=== PATIENT | male | born 1950 | race Caucasian/White ===

== ENCOUNTER 2017-08-08 09:27 | Emergency (ER) | payer MEDICARE, OTHER, SELFPAY ==
[2017-08-08 09:30] VITALS: BP 109/78; PULSE 91; RESP 25; TEMP 36.6; O2SAT 87; BMI 16.9
[2017-08-08 09:36] VITALS: BP 129/78; PULSE 90; RESP 19; O2SAT 96
--- NOTE | 2017-08-08 09:55 | RAD_ITS ---
STUDY: X-RAY CHEST REASON FOR EXAM: Male, 66 years old. Dizziness. Hypotension. History of COPD. TECHNIQUE: AP and lateral views of the chest. COMPARISON: Comparison is made with prior examination dated April 17, 2014. FINDINGS: EKG electrodes are seen. Increased linear markings in the right middle lobe suggestive of scarring. There is no demonstrated pleural abnormality. Normal size heart. Normal mediastinum and musa. Normal visualized pulmonary arteries. There is atherosclerotic tortuosity of the aortic arch and descending thoracic aorta. There is demineralization of the osseous structures. Normal visualized ribs, clavicles, and shoulders. There is no demonstrated abnormality of the visualized soft tissue structures of the upper abdomen. RAD/Chest PA and Lateral IMPRESSION: Findings suggestive of linear scarring in the right middle lobe. No acute abnormality is seen. Electronically Signed: Thom Smyth MD at 11:04 EDT Tel [phone], Service support ,
[2017-08-08 10:07] VITALS: BP 114/84; BP 128/88; PULSE 82; PULSE 88
--- NOTE | 2017-08-08 10:07 | ED.VISSUMM ---
- ER Visit Summary Date of Service: 08/08/17 Chief Complaint: Sent to ER because of low blood count and blood pressure. History of Present Illness: The patient is a 66 M who was hospitalized approximately 2 weeks ago secondary to esophageal tear that was complicated by cardiac pulmonary arrest and aspiration. He had surgical repair of his esophageal tear. Patient nor are certain what type of tear and if he had a Boerhaave's syndrome. Patient states he was upright when his pressure was assessed at the [facility] and document is low. After reviewing [facility] notes it was determined that his last hemoglobin was 7.7. He denies fever, chills night sweats. He denies any ocular, visual auditory symptoms. He does have a cough which is productive of yellow tinged sputum and reports dyspnea and wheezing. He is intermittently on oxygen. He has been on oxygen adamantly since surgery. He denies any chest pain or abdominal pain. He denies hematemesis, melena hematochezia. He states his last bowel movement was yesterday. There was no change in size, color or consistency. He denies any dysuria, frequency, urgency or hematuria. He denies any leg pain, swelling or discoloration. He denies headache, anesthesia or motor weakness. He does report generalized weakness. Please read written note for complete detail Physical Examination: Vital signs are unremarkable. Pulse ox 96% on 2 L by nasal cannula. Patient is a very thin gentleman. HEENT exam is remarkable for pale conjunctivae otherwise normal. Heart is regular without murmur, gallop or rub. Lungs reveal increased x-ray phase rhonchi and wheezing throughout. Abdomen is soft flat with well healing midline incision without evidence infection. There is slight tympany to percussion. There is no CVA tenderness noted. There is no asymmetry, swelling, discoloration, leg vein distention, palpable cords or tenderness along the distribution of the deep venous system. Affect is depressed. Neuro exam is nonfocal. Test Results: Two-view chest x-ray reveals fluid in the right fissure. The cardiac silhouette is normal. There is no abnormality of the mediastinum. There is evidence of chronic pulmonary changes. There is no infiltrate, effusion or any other N O'Baldo noted. White count is 9.2 thousand with 76 segs. H&H 7.9 and 25.9. Platelet count is 448,000. Electrode panel reveals slight elevation in glucose and BUN of 108 and 23. Orthostatic vital signs were negative. Emergency Department Course and Treatment: Clinically patient is anemic with pale conjunctivae and pale appearing skin. There is still erythema in the creases of his pulse. We will obtain a CBC to assess his H&H. Chest x-ray was obtained to evaluate his purulent productive cough and bilateral rhonchi as well as appropriate blood work. Orthostatic vital signs were obtained because patient reports he was upright when the nurse at the nursing facility documented low blood pressure. Treatment Plan: Reassessed and his breathing has improved markedly. He states he does have inhalers at the [facility]. He was informed that I would indicate he should use them more frequently over the next several days. Disposition: Return to [facility] in stable and improved condition Impression: 1. Bronchospasm secondary to COPD 2. Anemia status post surgery 3. Deconditioning 4. History of hypertension 5. Reported hypotension This note was generated with [employer] dictation software. It may contain incorrect words, spelling, and punctuation that were not noted in review of the chart prior to signing ED Disposition - Plan for ED Patient: Disposition: Home or Assisted Living Chief Complaint: Hypotension Instructions: ED COPD Flare Referrals: Marck Lee MD [Primary Care Provider] - 3-5 Days if not improving Additional Instructions: Allow Mr. Baker to use his metered-dose inhaler every 1-2 hours for the next 2 days then every 2-4 hours as needed.
[2017-08-08] MEDS: Ipratropium/Albuterol Sulfate 3 ML AMPUL.NEB INHALATION (10:10)
[2017-08-08] MEDS: Albuterol 2.5 MG/3 ML VIAL.NEB. INHALATION (10:10)
[2017-08-08 10:11] VITALS: PULSE 98; RESP 19
--- NOTE | 2017-08-08 10:12 | ED.DCSUM_ITS ---
- ER Visit Summary Date of Service: 08/08/17 Chief Complaint: Sent to ER because of low blood count and blood pressure. History of Present Illness: The patient is a 66 M who was hospitalized approximately 2 weeks ago secondary to esophageal tear that was complicated by cardiac pulmonary arrest and aspiration. He had surgical repair of his esophageal tear. Patient nor are certain what type of tear and if he had a Boerhaave's syndrome. Patient states he was upright when his pressure was assessed at the [facility] and document is low. After reviewing [facility] notes it was determined that his last hemoglobin was 7.7. He denies fever, chills night sweats. He denies any ocular, visual auditory symptoms. He does have a cough which is productive of yellow tinged sputum and reports dyspnea and wheezing. He is intermittently on oxygen. He has been on oxygen adamantly since surgery. He denies any chest pain or abdominal pain. He denies hematemesis, melena hematochezia. He states his last bowel movement was yesterday. There was no change in size, color or consistency. He denies any dysuria, frequency, urgency or hematuria. He denies any leg pain, swelling or discoloration. He denies headache, anesthesia or motor weakness. He does report generalized weakness. Please read written note for complete detail Physical Examination: Vital signs are unremarkable. Pulse ox 96% on 2 L by nasal cannula. Patient is a very thin gentleman. HEENT exam is remarkable for pale conjunctivae otherwise normal. Heart is regular without murmur, gallop or rub. Lungs reveal increased x-ray phase rhonchi and wheezing throughout. Abdomen is soft flat with well healing midline incision without evidence infection. There is slight tympany to percussion. There is no CVA tenderness noted. There is no asymmetry, swelling, discoloration, leg vein distention, palpable cords or tenderness along the distribution of the deep venous system. Affect is depressed. Neuro exam is nonfocal. Test Results: Two-view chest x-ray reveals fluid in the right fissure. The cardiac silhouette is normal. There is no abnormality of the mediastinum. There is evidence of chronic pulmonary changes. There is no infiltrate, effusion or any other N O'Baldo noted. White count is 9.2 thousand with 76 segs. H&H 7.9 and 25.9. Platelet count is 448,000. Electrode panel reveals slight elevation in glucose and BUN of 108 and 23. Orthostatic vital signs were negative. Emergency Department Course and Treatment: Clinically patient is anemic with pale conjunctivae and pale appearing skin. There is still erythema in the creases of his pulse. We will obtain a CBC to assess his H&H. Chest x-ray was obtained to evaluate his purulent productive cough and bilateral rhonchi as well as appropriate blood work. Orthostatic vital signs were obtained because patient reports he was upright when the nurse at the nursing facility documented low blood pressure. Treatment Plan: Reassessed and his breathing has improved markedly. He states he does have inhalers at the retirement. He was informed that I would indicate he should use them more frequently over the next several days. Disposition: Return to retirement in stable and improved condition Impression: 1. Bronchospasm secondary to COPD 2. Anemia status post surgery 3. Deconditioning 4. History of hypertension 5. Reported hypotension This note was generated with [employer] dictation software. It may contain incorrect words, spelling, and punctuation that were not noted in review of the chart prior to signing ED Disposition - Plan for ED Patient: Disposition: Home or Assisted Living Chief Complaint: Hypotension Instructions: ED COPD Flare Referrals: Marck Lee MD [Primary Care Provider] - 3-5 Days if not improving Additional Instructions: Allow Mr. Baker to use his metered-dose inhaler every 1-2 hours for the next 2 days then every 2-4 hours as needed.
[2017-08-08 11:18] LABS: Absolute Lymphocyte Count 1.38 X10^3/ul (0.83-4.51); Absolute Neutrophil Count 7.2 X10^3/uL (2.0-7.7); Basophil# 0.03 X10^3/uL; Basophil% 0.3 % (0-1); Eosinophil# 0.06 X10^3/uL; Eosinophils% 0.6 % (0-5); Hematocrit 25.9 % (40-54); Hemoglobin 7.9 g/dl (13.0-16.5); Lymphocyte # 1.38 X10^3/ul (4.0); Lymphocyte % 14.6 % (19-41); Mean Corp Hgb Conc 30.5 g/gl (32-36); Mean Corpuscular Hgb 31.6 pg (27.0-32.0); Mean Corpuscular Volume 103.6 fL (80-94); Mean Platelet Vol. 9.1 fl (6.2-12.0); Monocyte# 0.76 X10^3/uL; Neutrophil # 7.21 X10^3/uL (2.7-7.7); Neutrophil % 76.2 % (47-70); POSITIVE COUNT NO; POSITIVE DIFFERENTIAL NO; POSITIVE MORPHOLOGY NO; Platelet Count 448 K/mm3 (150-450); RBC Distribution Width CV 12.5 % (11.6-14.6); RBC Distribution Width SD 46.4 fl (35.1-43.9); White Blood Count 9.5 K/mm3 (4.4-11.0)
[2017-08-08 11:26] LABS: Anion Gap 4 (5-15); BUN 23 mg/dL (7-18); BUN/Creat Ratio 26.6 RATIO (10-20); Calcium,Total 9.2 mg/dL (8.5-10.1); Chloride 103 mmol/L (98-107); Creatinine, Serum 0.87 mg/dL (0.70-1.30); EST Glomerular Filtration Rate 94 mL/min (>60); Est Glom Filt Rate - Afr Amer 114 mL/min (>60); Estimated Creatinine Clearance 69.52 ml/min; Glucose 108 mg/dL (74-106); Potassium 4.6 mmol/L (3.5-5.1); Sodium Level 139 mmol/L (136-145)
[2017-08-08 11:28] VITALS: BP 135/88; PULSE 86; RESP 14; O2SAT 99
--- NOTE | 2017-08-08 12:03 | ED.RN ---
ATTEMPTED TO CALL [facility], TO LET THEM KNOW THAT HE WILL BE COMING BACK.
--- NOTE | 2017-08-08 12:05 | ED.RN ---
CALLED ANGEL, SHE IS AWARE THAT PT IS RETURNING TO [facility].
[2017-08-08 12:07] VITALS: BP 152/99; PULSE 100; RESP 18; O2SAT 96
--- NOTE | 2017-08-08 12:07 | ED.RN ---
CALLED [facility] GAVE REPORT TO MELLISSA NURSE.
== END 2017-08-08 12:52 | disposition home or self-care (01) ==
PROVIDERS: Emergency Provider Emergency Medicine; Family Provider Family Medicine; PCP Family Medicine
DX: J98.01 Acute bronchospasm (principal); J44.9 Chronic obstructive pulmonary disease, unspecified; D64.9 Anemia, unspecified; I10 Essential (primary) hypertension; E78.00 Pure hypercholesterolemia, unspecified; F32.9 Major depressive disorder, single episode, unspecified; Z98.890 Other specified postprocedural states; Z87.891 Personal history of nicotine dependence; Z79.51 Long term (current) use of inhaled steroids; Z79.82 Long term (current) use of aspirin; Z79.899 Other long term (current) drug therapy
CPT/HCPCS: 71046; 80048; 85025; 94640; 99285; A4216

== ENCOUNTER → 2017-10-03 12:53 | Outpatient (CLI) | payer MEDICARE, OTHER, SELFPAY ==
--- NOTE | 2017-10-03 12:56 | RAD_ITS ---
STUDY: SWALLOWING STUDY REASON FOR EXAM: Male, 66 years old. Dysphagia. TECHNIQUE: The examination was performed with Speech Pathology in attendance. Under fluoroscopic observation, the patient ingested thin barium, thick barium, barium pudding, and barium coated cracker. FLUOROSCOPY TIME: 5:06 minutes/seconds. 4325 images were obtained. RADIOLOGIST INVOLVEMENT: Radiologist was present and providing direct supervision. COMPARISON: None. FINDINGS: The following was observed during swallowing of the various mixtures of barium: Thin Barium: Side aspiration with ingestion of thin liquids. Thick Barium: There was no evidence of aspiration or laryngeal penetration. Barium Pudding: There was no evidence of aspiration or laryngeal penetration. Moderate amount of residual in the vallecula and piriform sinuses. Barium Coated Cracker: There was no evidence of aspiration or laryngeal penetration. RAD/Swallowing Function w/Video IMPRESSION: Sound aspiration with ingestion of thin liquids. Moderate degree of residual in the vallecula and piriform sinuses. The swallow study findings were discussed with the patient by the speech pathologist at the conclusion of the examination. Please see speech pathology report for more information and recommendations. Electronically Signed: Thom Smyth MD at 14:19 EDT Tel [phone], Service support ,
--- NOTE | 2017-10-03 13:00 | SP.MBSS_ITS ---
PRIMARY / SECONDARY DIAGNOSIS: dysphagia (R13.10) REFERRING PHYSICIAN: Dr. Chaka Judd MD; Dr. Cong Herron MD CURRENT DIET: regular textures, thin liquids DENTITION: WFL MENTAL STATUS: WNL RESPIRATORY STATUS: O2 via room air PREVIOUS MODIFIED BARIUM SWALLOW STUDY: unclear Patient reports prior workup via FEES, possibly via MBS during [facility] admission, reports recent FEES revealed what appears to be pharyngeal dysmotility w/ post prandial penetration and aspiration based on description. REASON FOR REFERRAL: Patient is a 66 year old male referred for a modified barium swallow (MBS) study to objectively assess the Patients oropharyngeal swallow function under fluoroscopy secondary to persistent severe dysphagia requiring percutaneous endoscopic gastrostomy (PEG) tube placement. Patient reports recent admission to [facility] ([facility]) lasting two weeks following choking incident (cheeseburger) prior to admission, with a separate incident reported during [facility] admission (lodging of pills), with workup revealing an esophageal perforation; admission complicated by cardiac pulmonary arrest and aspiration requiring intubation; PEG tube placed during [facility] admission. Patient later transferred to [facility], underwent a fiberoptic endoscopic evaluation of swallowing (FEES). Patient advanced to a regular textured, thin liquid diet with recommendations for execution of the chin tuck posture in addition to right head turn during PO intake. Patient reports continued coughing during PO intake of all textures. All reports not available at time of assessment. Esophagram scheduled for 10/07/2017. 08/08/2017 CXR revealed findings suggestive of linear scarring in the right middle lobe; no acute abnormality is seen. MEDICAL HISTORY: Myelodysplasia status post full body radiation (2002), chronic obstructive pulmonary disease, alcohol abuse, anxiety and depression, hyperlipidemia, hypertension STUDY FINDINGS: Patient participated in a Modified Barium Swallow (MBS) study on 10/03/2017. Dr. Smyth was the radiologist present for this evaluation. This study was recorded in the lateral view and images were sent to PACs for storage. The following consistencies were presented to this patient for analysis of oropharyngeal swallow function: thin liquids, nectar thickened liquids, pudding , and a regular textured, Millie Doone cookie. Results of the MBS are as follows: PENETRATION / ASPIRATION SCALE (GLEZ): 1 = does not enter airway 2 = enters airway/above vocal folds/ejected 3 = enters airway/above vocal folds/not ejected 4 = enters airway/contacts vocal folds/ejected 5 = enters airway/contacts vocal folds/not ejected 6 = enters airway/below vocal folds/ejected 7 = enters airway/below vocal folds/not ejected despite effort 8 = enters airway/below vocal folds/no effort VIDEOFLOROSCOPIC SCALE SCORE (GLEZ): Grade I = aspiration of material that has penetrated into the laryngeal vestibule, intact cough reflex Grade II = aspiration < 10 % of the bolus, intact cough reflex Grade III = aspiration of < 10 % of the bolus, reduced cough reflex or aspiration of > 10 % of the bolus, intact cough reflex Grade IV = aspiration of > 10 % of the bolus, reduced cough reflex PENETRATION / ASPIRATION SCALE (SCORE) WITH VIDEOFLOROSCOPIC SCALE SCORE: Thin liquids via cup (single sip): 7 - Grade II Thin liquids via cup (chin tuck): 1 Thin liquids via cup (chin tuck): 5 Thin liquids via cup (head turn right): 3 Thin liquids via cup (effort swallow): 7 - Grade II Thin liquids via cup (reduced bolus volume): 1 Thin liquids via cup (reduced bolus volume): 1 Thin liquids via cup (single sip): 1 Thin liquids via cup (single sip): 1 [place] thickened liquids via cup (single sip): 1 [place] thickened liquids via cup (single sip): 1 [place] thickened liquids via cup (single sip): 1 Pudding via spoon: 1 Pudding via spoon (right head turn): 1 Regular textured cookie: 1 Pudding via spoon (A/P): 1 Pudding via spoon (A/P right and left head turn): 1 Thin liquids via cup (reduced bolus volume): 1 IMPRESSION: DIAGNOSIS: moderate to severe pharyngeal dysphagia (R13.13) ORAL PHASE CHARACTERIZED BY: LABIAL SEAL: no labial escape TONGUE CONTROL DURING BOLUS MANIPULATION: cohesive bolus between tongue to palatal seal BOLUS PREPARATION / MASTICATION: slow prolonged chewing/mashing with complete recollection BOLUS TRANSPORT / LINGUAL MOTION: brisk tongue motion ORAL RESIDUE: residue collection on oral structures PHARYNGEAL PHASE CHARACTERIZED BY: INITIATION OF PHARYNGEAL SWALLOW: bolus head in valleculae at first hyoid excursion SOFT PALATE ELEVATION: no bolus between soft palate and pharyngeal wall LARYNGEAL ELEVATION: complete superior movement of thyroid cartilage with complete approximation of arytenoids cartilage to epiglottic petiole ANTERIOR HYOID EXCURSION: no anterior movement EPIGLOTTIC MOVEMENT: partial epiglottic inversion LARYNGEAL VESTIBULE CLOSURE AT HEIGHT OF SWALLOW: incomplete laryngeal vestibule closure with narrow column of air/contrast in laryngeal vestibule PHARYNGEAL STRIPPING WAVE: pharyngeal stripping wave absent PHARYNGEAL CONTRACTION (A/P VIEW ONLY): bilateral bulging PHARYNGOESOPHAGEAL SEGMENT OPENING: minimal distension and minimal duration with marked obstruction of flow TONGUE BASE RETRACTION: narrow column of contrast between tongue base and posterior pharyngeal wall PHARYNGEAL RESIDUE: majority of contrast within or on pharyngeal structures ( valleculae, pyriform sinus); collection of residue within or on pharyngeal structures (pharyngoesophageal segment) ESOPHAGEAL PHASE CHARACTERIZED BY: ESOPHAGEAL BOLUS CLEARANCE IN THE UPRIGHT POSITION: inconsistent esophageal retention EFFECTS OF TREATMENT STRATEGIES ATTEMPTED: Chin tuck posture = ineffective Left head turn = ineffective Right head turn = ineffective Cough and reswallow = ineffective Effort swallow = ineffective Double / multiple swallows = ineffective Liquid chaser = minimally effective / ineffective Reduced bolus size = = minimally effective Cued expectoration = effective DIET TEXTURE RECOMMENDATIONS: Will recommend a pureed textured, nectar thickened liquid diet. COMPENSATORY STRATEGIES RECOMMENDED: Reduced bolus volume, reduced rate of intake, liquid chaser, multiple swallows , seated upright at 90 degrees during PO intake, remain upright for 30-60 minutes post meal (dysmotility precaution), medications crushed with applesauce , INTERPRETATION OF RESULTS: Patient presents with moderate to severe pharyngeal dysphagia (R13.13) marked by significant pharyngeal dysmotility and reduced laryngeal vestibule closure resulting in prandial and post prandial penetration in addition to overt aspiration of thin liquids. Reduced closure of the airway during deglutition attributed to reduced hyolaryngeal excursion resulting in insufficient epiglottic inversion poor laryngeal vestibule closure / pressure / timing resulting in prandial penetration and minimal aspiration of thin liquids. 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 No improvement noted with execution of the chin tuck posture, multiple swallows, cough and reswallow, no significant improvement in pharyngeal clearance with head turn to either side. Sufficient cough response to expel penetrated material / laryngotracheal aspiration. RECOMMENDATIONS: Would consider this Patient to be at higher risk for both malnutrition and dehydration (due to extent of pharyngeal dysmotility and recommended diet texture restrictions), would caution removal of PEG tube. Patient requires intensive skilled speech-language intervention targeting continued diet texture management; training and implementation of recommended compensatory strategies; training and implementation of recommended oropharyngeal strengthening exercises to facilitate improved laryngeal vestibule closure / pressure, pharyngeal motility and pharyngoesophageal segment relaxation; neuromuscular electrical stimulation (NMES) / VitalStim; and Patient training targeting meal preparation / thickened liquid preparation. ADDITIONAL COMMENTS/RECOMMENDATIONS: Results and recommendations were discussed with the Patient immediately following MBS completion, with the Patient verbalizing understanding and agreement with all recommendations and education provided. Received message from the Patients daughter to contact post completion, though was unable to establish contact despite multiple attempts. Email sent with contact information provided. G-CODES: SWALLOWING [id number] Current Status: CK SWALLOWING [id number] Goal Status: CI SWALLOWING [id number] Discharge Status: CK
== END ==
PROVIDERS: Family Provider Family Medicine; PCP Family Medicine; Visit Provider Family Medicine
DX: K22.3 Perforation of esophagus (principal); R13.12 Dysphagia, oropharyngeal phase
CPT/HCPCS: 74230; 92611; G8996; G8997; G8998

== ENCOUNTER → 2017-10-07 08:22 | Outpatient (CLI) | payer MEDICARE, OTHER, SELFPAY ==
--- NOTE | 2017-10-07 08:30 | RAD_ITS ---
STUDY: X-RAY - ESOPHAGUS (BARIUM SWALLOW) WITH FLUOROSCOPY REASON FOR EXAM: Male, 66 years old. Dysphagia. History of prior esophageal perforation. TECHNIQUE: 16 view(s) of the esophagus were obtained following swallowing of barium. FLUOROSCOPY TIME (if supplied): (0:42) minutes/seconds COMPARISON: None. FINDINGS: There was aspiration of barium during the examination. There is no demonstrated esophageal foreign body. There is no demonstrated stricture or mucosal abnormality. There is a small hiatal hernia of the fundus of the stomach. No evidence of gastroesophageal reflux. There is atherosclerotic tortuosity of the aortic arch and descending thoracic aorta. Normal visualized pulmonary parenchyma. Normal visualized osseous structures of the thorax. RAD/Esophagus Only IMPRESSION: Small sliding hiatal hernia. No evidence of gastroesophageal reflux. Aspiration of barium. Electronically Signed: Thom Smyth MD at 9:49 EDT Tel [phone], Service support ,
== END ==
PROVIDERS: Family Provider Family Medicine; PCP Family Medicine; Visit Provider Family Medicine
DX: R13.12 Dysphagia, oropharyngeal phase (principal); K22.3 Perforation of esophagus
CPT/HCPCS: 74220; 92610

== ENCOUNTER 2017-11-19 14:30 | Outpatient (RCR) | payer MEDICARE, OTHER, SELFPAY ==
--- NOTE | 2017-10-08 14:50 | ST ---
PRIMARY / SECONDARY DIAGNOSIS: dysphagia (R13.10) REFERRING PHYSICIAN: Dr. Chaka Judd MD; Dr. Cong Herron MD CURRENT DIET: regular textures, thin liquids DENTITION: WFL MENTAL STATUS: WNL RESPIRATORY STATUS: O2 via room air PREVIOUS MODIFIED BARIUM SWALLOW STUDY: unclear Patient reports prior workup via FEES, possibly via MBS during [facility] admission, reports recent FEES revealed what appears to be pharyngeal dysmotility w/ post prandial penetration and aspiration based on description. REASON FOR REFERRAL: Patient is a 66 year old male referred for a modified barium swallow (MBS) study to objectively assess the Patients oropharyngeal swallow function under fluoroscopy secondary to persistent severe dysphagia requiring percutaneous endoscopic gastrostomy (PEG) tube placement. Patient reports recent admission to [facility] ([facility]) lasting two weeks following choking incident (cheeseburger) prior to admission, with a separate incident reported during [facility] admission (lodging of pills), with workup revealing an esophageal perforation; admission complicated by cardiac pulmonary arrest and aspiration requiring intubation; PEG tube placed during [facility] admission. Patient later transferred to [facility], underwent a fiberoptic endoscopic evaluation of swallowing (FEES). Patient advanced to a regular textured, thin liquid diet with recommendations for execution of the chin tuck posture in addition to right head turn during PO intake. Patient reports continued coughing during PO intake of all textures. All reports not available at time of assessment. Esophagram scheduled for 10/07/2017. 08/08/2017 CXR revealed findings suggestive of linear scarring in the right middle lobe; no acute abnormality is seen. MEDICAL HISTORY: Myelodysplasia status post full body radiation (2002), chronic obstructive pulmonary disease, alcohol abuse, anxiety and depression, hyperlipidemia, hypertension STUDY FINDINGS: Patient participated in a Modified Barium Swallow (MBS) study on 10/03/2017. Dr. Smyth was the radiologist present for this evaluation. This study was recorded in the lateral view and images were sent to PACs for storage. The following consistencies were presented to this patient for analysis of oropharyngeal swallow function: thin liquids, nectar thickened liquids, pudding, and a regular textured, Millie Doone cookie. Results of the MBS are as follows: PENETRATION / ASPIRATION SCALE (GLEZ): 1 = does not enter airway 2 = enters airway/above vocal folds/ejected 3 = enters airway/above vocal folds/not ejected 4 = enters airway/contacts vocal folds/ejected 5 = enters airway/contacts vocal folds/not ejected 6 = enters airway/below vocal folds/ejected 7 = enters airway/below vocal folds/not ejected despite effort 8 = enters airway/below vocal folds/no effort VIDEOFLOROSCOPIC SCALE SCORE (GLEZ): Grade I = aspiration of material that has penetrated into the laryngeal vestibule, intact cough reflex Grade II = aspiration < 10 % of the bolus, intact cough reflex Grade III = aspiration of < 10 % of the bolus, reduced cough reflex or aspiration of > 10 % of the bolus, intact cough reflex Grade IV = aspiration of > 10 % of the bolus, reduced cough reflex PENETRATION / ASPIRATION SCALE (SCORE) WITH VIDEOFLOROSCOPIC SCALE SCORE: Thin liquids via cup (single sip): 7 - Grade II Thin liquids via cup (chin tuck): 1 Thin liquids via cup (chin tuck): 5 Thin liquids via cup (head turn right): 3 Thin liquids via cup (effort swallow): 7 - Grade II Thin liquids via cup (reduced bolus volume): 1 Thin liquids via cup (reduced bolus volume): 1 Thin liquids via cup (single sip): 1 Thin liquids via cup (single sip): 1 [place] thickened liquids via cup (single sip): 1 [place] thickened liquids via cup (single sip): 1 [place] thickened liquids via cup (single sip): 1 Pudding via spoon: 1 Pudding via spoon (right head turn): 1 Regular textured cookie: 1 Pudding via spoon (A/P): 1 Pudding via spoon (A/P right and left head turn): 1 Thin liquids via cup (reduced bolus volume): 1 IMPRESSION: DIAGNOSIS: moderate to severe pharyngeal dysphagia (R13.13) ORAL PHASE CHARACTERIZED BY: LABIAL SEAL: no labial escape TONGUE CONTROL DURING BOLUS MANIPULATION: cohesive bolus between tongue to palatal seal BOLUS PREPARATION / MASTICATION: slow prolonged chewing/mashing with complete recollection BOLUS TRANSPORT / LINGUAL MOTION: brisk tongue motion ORAL RESIDUE: residue collection on oral structures PHARYNGEAL PHASE CHARACTERIZED BY: INITIATION OF PHARYNGEAL SWALLOW: bolus head in valleculae at first hyoid excursion SOFT PALATE ELEVATION: no bolus between soft palate and pharyngeal wall LARYNGEAL ELEVATION: complete superior movement of thyroid cartilage with complete approximation of arytenoids cartilage to epiglottic petiole ANTERIOR HYOID EXCURSION: no anterior movement EPIGLOTTIC MOVEMENT: partial epiglottic inversion LARYNGEAL VESTIBULE CLOSURE AT HEIGHT OF SWALLOW: incomplete laryngeal vestibule closure with narrow column of air/contrast in laryngeal vestibule PHARYNGEAL STRIPPING WAVE: pharyngeal stripping wave absent PHARYNGEAL CONTRACTION (A/P VIEW ONLY): bilateral bulging PHARYNGOESOPHAGEAL SEGMENT OPENING: minimal distension and minimal duration with marked obstruction of flow TONGUE BASE RETRACTION: narrow column of contrast between tongue base and posterior pharyngeal wall PHARYNGEAL RESIDUE: majority of contrast within or on pharyngeal structures (valleculae, pyriform sinus); collection of residue within or on pharyngeal structures (pharyngoesophageal segment) ESOPHAGEAL PHASE CHARACTERIZED BY: ESOPHAGEAL BOLUS CLEARANCE IN THE UPRIGHT POSITION: inconsistent esophageal retention EFFECTS OF TREATMENT STRATEGIES ATTEMPTED: Chin tuck posture = ineffective Left head turn = ineffective Right head turn = ineffective Cough and reswallow = ineffective Effort swallow = ineffective Double / multiple swallows = ineffective Liquid chaser = minimally effective / ineffective Reduced bolus size = = minimally effective Cued expectoration = effective DIET TEXTURE RECOMMENDATIONS: Will recommend a pureed textured, nectar thickened liquid diet. COMPENSATORY STRATEGIES RECOMMENDED: Reduced bolus volume, reduced rate of intake, liquid chaser, multiple swallows, seated upright at 90 degrees during PO intake, remain upright for 30-60 minutes post meal (dysmotility precaution), medications crushed with applesauce, INTERPRETATION OF RESULTS: Patient presents with moderate to severe pharyngeal dysphagia (R13.13) marked by significant pharyngeal dysmotility and reduced laryngeal vestibule closure resulting in prandial and post prandial penetration in addition to overt aspiration of thin liquids. Reduced closure of the airway during deglutition attributed to reduced hyolaryngeal excursion resulting in insufficient epiglottic inversion poor laryngeal vestibule closure / pressure / timing resulting in prandial penetration and minimal aspiration of thin liquids. 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 No improvement noted with execution of the chin tuck posture, multiple swallows, cough and reswallow, no significant improvement in pharyngeal clearance with head turn to either side. Sufficient cough response to expel penetrated material / laryngotracheal aspiration. RECOMMENDATIONS: Would consider this Patient to be at higher risk for both malnutrition and dehydration (due to extent of pharyngeal dysmotility and recommended diet texture restrictions), would caution removal of PEG tube. Patient requires intensive skilled speech-language intervention targeting continued diet texture management; training and implementation of recommended compensatory strategies; training and implementation of recommended oropharyngeal strengthening exercises to facilitate improved laryngeal vestibule closure / pressure, pharyngeal motility and pharyngoesophageal segment relaxation; neuromuscular electrical stimulation (NMES) / VitalStim; and Patient training targeting meal preparation / thickened liquid preparation. ADDITIONAL COMMENTS/RECOMMENDATIONS: Results and recommendations were discussed with the Patient immediately following MBS completion, with the Patient verbalizing understanding and agreement with all recommendations and education provided. Received message from the Patients daughter to contact post completion, though was unable to establish contact despite multiple attempts. Email sent with contact information provided. G-CODES: SWALLOWING [id number] Current Status: CK SWALLOWING G8997 Goal Status: CI SWALLOWING [id number] Discharge Status: CK 10/03/17 1609 <Electronically signed by Reza Maldonado M.A., CFY-AUTO CLEANER> Date Reza Maldonado M.A., CFY-AUTO CLEANER
--- NOTE | 2017-10-08 15:06 | HP.SP.AD_ITS ---
History - History Date of Eval: 10/07/17 Medical Diagnosis (from RX): Dysphagia Date of Onset of Diagnosis: 2002 Previous speech therapy: Yes Results: [facility]: Other Relevant Medical History/Diagnoses/Surgery: Patient reports recent admission to [facility] ([facility]) lasting two weeks following choking incident (cheeseburger) prior to admission, with a separate incident reported during [facility] admission (lodging of pills), with workup revealing an esophageal perforation; admission complicated by cardiac pulmonary arrest and aspiration requiring intubation; PEG tube placed during [facility] admission. Patient later transferred to [facility], underwent a fiberoptic endoscopic evaluation of swallowing (FEES). Patient advanced to a regular textured, thin liquid diet with recommendations for execution of the chin tuck posture in addition to right head turn during PO intake. Patient reports continued coughing during PO intake of all textures. 08/08/2017 CXR revealed findings suggestive of linear scarring in the right middle lobe. Myelodysplasia status post full body radiation (2002), chronic obstructive pulmonary disease, alcohol abuse, anxiety and depression, hyperlipidemia, hypertension. 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 Noted swallowing deficits started at that time. History of alcohol abuse. Smoking Status: Former smoker Hx Smoking: Yes Hx Tobacco Use: No Hx Smoking Exposure: No - Pain Is pain an issue with your current prescribed condition?: No - Personal Right Hearing Abillity: Normal Left Hearing Abillity: Normal Patient Allergies - Allergies Allergies PANTANODINE Allergy (Uncoded 08/08/17 09:29) Unknown Subjective Dysphagia - Symptoms Reported Symptoms/Problems with: Difficulty Swallowing Liquids, Weight Loss, Hx of Aspiration, Hx of Pneumonia - Current Diet Solids Current Diet: Regular Other: Recommended pureed from MBS on 10/03/17 - Current Diet Liquids Current Liquids: [place] Thick [place] free water Protocol: Yes - NPO NPO - Alternative Nutrition Method: Gastrostomy Tube Objective Dysphagia - Results Swallowing Within Normal Limits: No Swallowing Diagnosis: Pharyngeal Phase Dysphagia Severity: Moderate Modified Barium Results Hx MBS Report Entered: Yes MBS Results (from prior exam): 10/08/17 14:50 Speech Therapy by John Bergman PRIMARY / SECONDARY DIAGNOSIS: dysphagia (R13.10) REFERRING PHYSICIAN: Dr. Chaka Judd MD; Dr. Cong Herron MD CURRENT DIET: regular textures, thin liquids DENTITION: WFL MENTAL STATUS: WNL RESPIRATORY STATUS: O2 via room air PREVIOUS MODIFIED BARIUM SWALLOW STUDY: unclear Patient reports prior workup via FEES, possibly via MBS during [facility] admission, reports recent FEES revealed what appears to be pharyngeal dysmotility w/ post prandial penetration and aspiration based on description. REASON FOR REFERRAL: Patient is a 66 year old male referred for a modified barium swallow (MBS) study to objectively assess the Patients oropharyngeal swallow function under fluoroscopy secondary to persistent severe dysphagia requiring percutaneous endoscopic gastrostomy (PEG) tube placement. Patient reports recent admission to [facility] ([facility]) lasting two weeks following choking incident (cheeseburger) prior to admission, with a separate incident reported during [facility] admission (lodging of pills), with workup revealing an esophageal perforation; admission complicated by cardiac pulmonary arrest and aspiration requiring intubation; PEG tube placed during [facility] admission. Patient later transferred to [facility], underwent a fiberoptic endoscopic evaluation of swallowing (FEES). Patient advanced to a regular textured, thin liquid diet with recommendations for execution of the chin tuck posture in addition to right head turn during PO intake. Patient reports continued coughing during PO intake of all textures. All reports not available at time of assessment. Esophagram scheduled for 10/07/2017. 08/08/2017 CXR revealed findings suggestive of linear scarring in the right middle lobe; no acute abnormality is seen. MEDICAL HISTORY: Myelodysplasia status post full body radiation (2002), chronic obstructive pulmonary disease, alcohol abuse, anxiety and depression, hyperlipidemia, hypertension STUDY FINDINGS: Patient participated in a Modified Barium Swallow (MBS) study on 10/03/2017. Dr. Smyth was the radiologist present for this evaluation. This study was recorded in the lateral view and images were sent to PACs for storage. The following consistencies were presented to this patient for analysis of oropharyngeal swallow function: thin liquids, nectar thickened liquids, pudding , and a regular textured, Millie Doone cookie. Results of the MBS are as follows: PENETRATION / ASPIRATION SCALE (GLEZ): 1 = does not enter airway 2 = enters airway/above vocal folds/ejected 3 = enters airway/above vocal folds/not ejected 4 = enters airway/contacts vocal folds/ejected 5 = enters airway/contacts vocal folds/not ejected 6 = enters airway/below vocal folds/ejected 7 = enters airway/below vocal folds/not ejected despite effort 8 = enters airway/below vocal folds/no effort VIDEOFLOROSCOPIC SCALE SCORE (GLEZ): Grade I = aspiration of material that has penetrated into the laryngeal vestibule, intact cough reflex Grade II = aspiration < 10 % of the bolus, intact cough reflex Grade III = aspiration of < 10 % of the bolus, reduced cough reflex or aspiration of > 10 % of the bolus, intact cough reflex Grade IV = aspiration of > 10 % of the bolus, reduced cough reflex PENETRATION / ASPIRATION SCALE (SCORE) WITH VIDEOFLOROSCOPIC SCALE SCORE: Thin liquids via cup (single sip): 7 - Grade II Thin liquids via cup (chin tuck): 1 Thin liquids via cup (chin tuck): 5 Thin liquids via cup (head turn right): 3 Thin liquids via cup (effort swallow): 7 - Grade II Thin liquids via cup (reduced bolus volume): 1 Thin liquids via cup (reduced bolus volume): 1 Thin liquids via cup (single sip): 1 Thin liquids via cup (single sip): 1 [place] thickened liquids via cup (single sip): 1 [place] thickened liquids via cup (single sip): 1 [place] thickened liquids via cup (single sip): 1 Pudding via spoon: 1 Pudding via spoon (right head turn): 1 Regular textured cookie: 1 Pudding via spoon (A/P): 1 Pudding via spoon (A/P right and left head turn): 1 Thin liquids via cup (reduced bolus volume): 1 IMPRESSION: DIAGNOSIS: moderate to severe pharyngeal dysphagia (R13.13) ORAL PHASE CHARACTERIZED BY: LABIAL SEAL: no labial escape TONGUE CONTROL DURING BOLUS MANIPULATION: cohesive bolus between tongue to palatal seal BOLUS PREPARATION / MASTICATION: slow prolonged chewing/mashing with complete recollection BOLUS TRANSPORT / LINGUAL MOTION: brisk tongue motion ORAL RESIDUE: residue collection on oral structures PHARYNGEAL PHASE CHARACTERIZED BY: INITIATION OF PHARYNGEAL SWALLOW: bolus head in valleculae at first hyoid excursion SOFT PALATE ELEVATION: no bolus between soft palate and pharyngeal wall LARYNGEAL ELEVATION: complete superior movement of thyroid cartilage with complete approximation of arytenoids cartilage to epiglottic petiole ANTERIOR HYOID EXCURSION: no anterior movement EPIGLOTTIC MOVEMENT: partial epiglottic inversion LARYNGEAL VESTIBULE CLOSURE AT HEIGHT OF SWALLOW: incomplete laryngeal vestibule closure with narrow column of air/contrast in laryngeal vestibule PHARYNGEAL STRIPPING WAVE: pharyngeal stripping wave absent PHARYNGEAL CONTRACTION (A/P VIEW ONLY): bilateral bulging PHARYNGOESOPHAGEAL SEGMENT OPENING: minimal distension and minimal duration with marked obstruction of flow TONGUE BASE RETRACTION: narrow column of contrast between tongue base and posterior pharyngeal wall PHARYNGEAL RESIDUE: majority of contrast within or on pharyngeal structures ( valleculae, pyriform sinus); collection of residue within or on pharyngeal structures (pharyngoesophageal segment) ESOPHAGEAL PHASE CHARACTERIZED BY: ESOPHAGEAL BOLUS CLEARANCE IN THE UPRIGHT POSITION: inconsistent esophageal retention EFFECTS OF TREATMENT STRATEGIES ATTEMPTED: Chin tuck posture = ineffective Left head turn = ineffective Right head turn = ineffective Cough and reswallow = ineffective Effort swallow = ineffective Double / multiple swallows = ineffective Liquid chaser = minimally effective / ineffective Reduced bolus size = = minimally effective Cued expectoration = effective DIET TEXTURE RECOMMENDATIONS: Will recommend a pureed textured, nectar thickened liquid diet. COMPENSATORY STRATEGIES RECOMMENDED: Reduced bolus volume, reduced rate of intake, liquid chaser, multiple swallows , seated upright at 90 degrees during PO intake, remain upright for 30-60 minutes post meal (dysmotility precaution), medications crushed with applesauce , INTERPRETATION OF RESULTS: Patient presents with moderate to severe pharyngeal dysphagia (R13.13) marked by significant pharyngeal dysmotility and reduced laryngeal vestibule closure resulting in prandial and post prandial penetration in addition to overt aspiration of thin liquids. Reduced closure of the airway during deglutition attributed to reduced hyolaryngeal excursion resulting in insufficient epiglottic inversion poor laryngeal vestibule closure / pressure / timing resulting in prandial penetration and minimal aspiration of thin liquids. 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 No improvement noted with execution of the chin tuck posture, multiple swallows, cough and reswallow, no significant improvement in pharyngeal clearance with head turn to either side. Sufficient cough response to expel penetrated material / laryngotracheal aspiration. RECOMMENDATIONS: Would consider this Patient to be at higher risk for both malnutrition and dehydration (due to extent of pharyngeal dysmotility and recommended diet texture restrictions), would caution removal of PEG tube. Patient requires intensive skilled speech-language intervention targeting continued diet texture management; training and implementation of recommended compensatory strategies; training and implementation of recommended oropharyngeal strengthening exercises to facilitate improved laryngeal vestibule closure / pressure, pharyngeal motility and pharyngoesophageal segment relaxation; neuromuscular electrical stimulation (NMES) / VitalStim; and Patient training targeting meal preparation / thickened liquid preparation. ADDITIONAL COMMENTS/RECOMMENDATIONS: Results and recommendations were discussed with the Patient immediately following MBS completion, with the Patient verbalizing understanding and agreement with all recommendations and education provided. Received message from the Patients daughter to contact post completion, though was unable to establish contact despite multiple attempts. Email sent with contact information provided. G-CODES: SWALLOWING [id number] Current Status: CK SWALLOWING G8997 Goal Status: CI SWALLOWING G8998 Discharge Status: CK 10/03/17 1609 <Electronically signed by Reza Maldonado M.A., Y-REELING AND TUBING MACHINE OPERATOR> Date Reza Maldonado M.A., Y-REELING AND TUBING MACHINE OPERATOR Electronically signed by John Bergman M.A., [facility]-REELING AND TUBING MACHINE OPERATOR on 10/08/17 14:51 Initialized on 10/08/17 14:50 - END OF NOTE Dysphagia Assessment - Swallowing Impairment Contributing Factors to Swallowing Impairment: Reduced Laryngeal Excursion - Impact Impact on Safety & Functioning: Risk for Aspiration, Risk for Inadequate Nutrition/Hydration - Recommendations Modified Barium Swallow/Cookie Swallow Recommended: Yes Swallowing Treatment: Yes - Diet Texture Recommendations Solids Other: Pureed Liquids: [place] Thick [place] free water Protocol: Yes - Safety Saftey Precautions/Swallowing Recommendations (Check all that Apply): Upright Position at Least 30 Minutes After Meals, Small Sips & Bites when Eating, Multiple Swallows, Alternate Liquids & Solids, Other (Specify Below) Other: Medications in applesauce/puree, slow rate of instake - Compensatory Strategies Compensatory Strategies: Cough after swallow Other Impressions - Comments Vitalstim -: The modality of Vitalstim will be used for one month will a follow up modified barium swallow study. Plan - Plan Plan: Speech therapy is recommended for moderate to severe pharyngeal dysphagia. - Recommendations MBS: Yes Treatment Warranted: Yes - Frequency Frequency: 3x /Week Duration: 2 Months Visits in this POC: 24 - Prognosis Prognosis: Good - Goals that are Established: Determination:: Goals will be added/modified as deemed necessary and appropriate. Therapy will be discontinued when results of re-evaluation indicate therapy is no longer needed or lack of progress has been documented. - Goal #1-5 Goal #1: Pt. will tolerate the least restrictive means of nutrition to facilitate adequate hydration/nutrition with optimum safety and efficiency of the Pt.?s swallowing function during P.O. intake without overt signs and symptoms of aspiration across 3 consecutive sessions Goal #2: Pt. will independently demonstrate and utilize recommended compensatory swallowing techniques to facilitate improved airway protection and decreased risk for aspiration during PO intake, with minimal cueing and prompting provide by the clinician, across 2 out of 3 sessions. Goal #3: Pt. will independently demonstrate and utilize recommended safety precautions associated with the [place] Free Water Protocol to facilitate improved hydration / intake with complete independence across 3 consecutive sessions. Education - Patient Instruction Patient Education: Diagnosis, Treatment Plan, Safety Precautions, Diet Level Person Taught: Patient, Family Teaching Method: Discussion, Demonstration Response to teaching: Verbalize understanding, Has Prior Knowledge
--- NOTE | 2017-11-10 17:22 | HP.SP.ADRE ---
Previous/Current Goals - Goals 1-5 Previous Goal #1: Pt. will tolerate the least restrictive means of nutrition to facilitate adequate hydration/nutrition with optimum safety and efficiency of the Pt.s swallowing function during P.O. intake without overt signs and symptoms of aspiration across 3 consecutive sessions Goal 1 Status: PAtient currently is taking a regular diet with thin liquids. He continues to exhibit a wet vocal quality intermittently. Previous Goal #2: Pt. will independently demonstrate and utilize recommended compensatory swallowing techniques to facilitate improved airway protection and decreased risk for aspiration during PO intake, with minimal cueing and prompting provide by the clinician, across 2 out of 3 sessions. Goal 2 Status: Patient is not currently using any of his strategies per his choice. Goal discontinued. Previous Goal #3: Pt. will independently demonstrate and utilize recommended safety precautions associated with the Coleman Free Water Protocol to facilitate improved hydration / intake with complete independence across 3 consecutive sessions. Goal 3 Status: Patient is already taking thin liquids by his own choice ( recommended was nectar thickened liquids) so no completion of Coleman Free water protocol. Goal discontinued. History - History Date of Eval: 10/07/17 Medical Diagnosis (from RX): Dysphagia Date of Onset of Diagnosis: 2002 Previous speech therapy: No Results: [facility]: Other Relevant Medical History/Diagnoses/Surgery: Patient reports recent admission to [facility] ([facility]) lasting two weeks following choking incident (cheeseburger) prior to admission, with a separate incident reported during [facility] admission (lodging of pills), with workup revealing an esophageal perforation; admission complicated by cardiac pulmonary arrest and aspiration requiring intubation; PEG tube placed during [facility] admission. Patient later transferred to [facility], underwent a fiberoptic endoscopic evaluation of swallowing (FEES). Patient advanced to a regular textured, thin liquid diet with recommendations for execution of the chin tuck posture in addition to right head turn during PO intake. Patient reports continued coughing during PO intake of all textures. 08/08/2017 CXR revealed findings suggestive of linear scarring in the right middle lobe. Myelodysplasia status post full body radiation (2002), chronic obstructive pulmonary disease, alcohol abuse, anxiety and depression, hyperlipidemia, hypertension. 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 Noted swallowing deficits started at that time. History of alcohol abuse. Smoking Status: Former smoker Hx Smoking: Yes Hx Tobacco Use: No Hx Smoking Exposure: No - Pain Is pain an issue with your current prescribed condition?: No - Personal Right Hearing Abillity: Normal Left Hearing Abillity: Normal Patient Allergies - Allergies Allergies PANTANODINE Allergy (Uncoded 08/08/17 09:29) Unknown Subjective Dysphagia - Symptoms Reported Symptoms/Problems with: Coughing, Weight Loss, Hx of Pneumonia - Current Diet Solids Current Diet: Regular Other: Recommended pureed from MBS on 10/03/17 - Current Diet Liquids Current Liquids: Thin Coleman free water Protocol: Yes - NPO NPO - Alternative Nutrition Method: Gastrostomy Tube Objective Dysphagia - Administered by Administered by: Self - Thin Liquids Administred via: Cup, Straw Symptoms: Couging Oral Holding: No Patient Report: Patient states that he has a wet cough intermittently and has since whole body radation in 2002. Comments: Unable to determine if cough is due to penetration/aspiration or another cause. - Results Swallowing Within Normal Limits: No Swallowing Diagnosis: Dysphagia Unspecified Severity: Moderate Dysphagia Re-Eval - Re-Evaluation Dysphagia Re-Evaluation: Patient has completed 9 session utalizing Vitalstim at placement 3a. He also completes oropharyngeal exercises while Vitalstim is placed. He also drinks approximately 20 oz per session to with Vitalstim in place. Modified Barium Results Hx MBS Report Entered: Yes MBS Results (from prior exam): 10/08/17 14:50 Speech Therapy by John Bergman PRIMARY / SECONDARY DIAGNOSIS: dysphagia (R13.10) REFERRING PHYSICIAN: Dr. Chaka Judd MD; Dr. Cong Herron MD CURRENT DIET: regular textures, thin liquids DENTITION: WFL MENTAL STATUS: WNL RESPIRATORY STATUS: O2 via room air PREVIOUS MODIFIED BARIUM SWALLOW STUDY: unclear Patient reports prior workup via FEES, possibly via MBS during [facility] admission, reports recent FEES revealed what appears to be pharyngeal dysmotility w/ post prandial penetration and aspiration based on description. REASON FOR REFERRAL: Patient is a 66 year old male referred for a modified barium swallow (MBS) study to objectively assess the Patients oropharyngeal swallow function under fluoroscopy secondary to persistent severe dysphagia requiring percutaneous endoscopic gastrostomy (PEG) tube placement. Patient reports recent admission to [facility] ([facility]) lasting two weeks following choking incident (cheeseburger) prior to admission, with a separate incident reported during [facility] admission (lodging of pills), with workup revealing an esophageal perforation; admission complicated by cardiac pulmonary arrest and aspiration requiring intubation; PEG tube placed during [facility] admission. Patient later transferred to [facility], underwent a fiberoptic endoscopic evaluation of swallowing (FEES). Patient advanced to a regular textured, thin liquid diet with recommendations for execution of the chin tuck posture in addition to right head turn during PO intake. Patient reports continued coughing during PO intake of all textures. All reports not available at time of assessment. Esophagram scheduled for 10/07/2017. 08/08/2017 CXR revealed findings suggestive of linear scarring in the right middle lobe; no acute abnormality is seen. MEDICAL HISTORY: Myelodysplasia status post full body radiation (2002), chronic obstructive pulmonary disease, alcohol abuse, anxiety and depression, hyperlipidemia, hypertension STUDY FINDINGS: Patient participated in a Modified Barium Swallow (MBS) study on 10/03/2017. Dr. Smyth was the radiologist present for this evaluation. This study was recorded in the lateral view and images were sent to PACs for storage. The following consistencies were presented to this patient for analysis of oropharyngeal swallow function: thin liquids, nectar thickened liquids, pudding, and a regular textured, Millie Doone cookie. Results of the MBS are as follows: PENETRATION / ASPIRATION SCALE (GLEZ): 1 = does not enter airway 2 = enters airway/above vocal folds/ejected 3 = enters airway/above vocal folds/not ejected 4 = enters airway/contacts vocal folds/ejected 5 = enters airway/contacts vocal folds/not ejected 6 = enters airway/below vocal folds/ejected 7 = enters airway/below vocal folds/not ejected despite effort 8 = enters airway/below vocal folds/no effort VIDEOFLOROSCOPIC SCALE SCORE (GLEZ): Grade I = aspiration of material that has penetrated into the laryngeal vestibule, intact cough reflex Grade II = aspiration < 10 % of the bolus, intact cough reflex Grade III = aspiration of < 10 % of the bolus, reduced cough reflex or aspiration of > 10 % of the bolus, intact cough reflex Grade IV = aspiration of > 10 % of the bolus, reduced cough reflex PENETRATION / ASPIRATION SCALE (SCORE) WITH VIDEOFLOROSCOPIC SCALE SCORE: Thin liquids via cup (single sip): 7 - Grade II Thin liquids via cup (chin tuck): 1 Thin liquids via cup (chin tuck): 5 Thin liquids via cup (head turn right): 3 Thin liquids via cup (effort swallow): 7 - Grade II Thin liquids via cup (reduced bolus volume): 1 Thin liquids via cup (reduced bolus volume): 1 Thin liquids via cup (single sip): 1 Thin liquids via cup (single sip): 1 [place] thickened liquids via cup (single sip): 1 [place] thickened liquids via cup (single sip): 1 [place] thickened liquids via cup (single sip): 1 Pudding via spoon: 1 Pudding via spoon (right head turn): 1 Regular textured cookie: 1 Pudding via spoon (A/P): 1 Pudding via spoon (A/P right and left head turn): 1 Thin liquids via cup (reduced bolus volume): 1 IMPRESSION: DIAGNOSIS: moderate to severe pharyngeal dysphagia (R13.13) ORAL PHASE CHARACTERIZED BY: LABIAL SEAL: no labial escape TONGUE CONTROL DURING BOLUS MANIPULATION: cohesive bolus between tongue to palatal seal BOLUS PREPARATION / MASTICATION: slow prolonged chewing/mashing with complete recollection BOLUS TRANSPORT / LINGUAL MOTION: brisk tongue motion ORAL RESIDUE: residue collection on oral structures PHARYNGEAL PHASE CHARACTERIZED BY: INITIATION OF PHARYNGEAL SWALLOW: bolus head in valleculae at first hyoid excursion SOFT PALATE ELEVATION: no bolus between soft palate and pharyngeal wall LARYNGEAL ELEVATION: complete superior movement of thyroid cartilage with complete approximation of arytenoids cartilage to epiglottic petiole ANTERIOR HYOID EXCURSION: no anterior movement EPIGLOTTIC MOVEMENT: partial epiglottic inversion LARYNGEAL VESTIBULE CLOSURE AT HEIGHT OF SWALLOW: incomplete laryngeal vestibule closure with narrow column of air/contrast in laryngeal vestibule PHARYNGEAL STRIPPING WAVE: pharyngeal stripping wave absent PHARYNGEAL CONTRACTION (A/P VIEW ONLY): bilateral bulging PHARYNGOESOPHAGEAL SEGMENT OPENING: minimal distension and minimal duration with marked obstruction of flow TONGUE BASE RETRACTION: narrow column of contrast between tongue base and posterior pharyngeal wall PHARYNGEAL RESIDUE: majority of contrast within or on pharyngeal structures (valleculae, pyriform sinus); collection of residue within or on pharyngeal structures (pharyngoesophageal segment) ESOPHAGEAL PHASE CHARACTERIZED BY: ESOPHAGEAL BOLUS CLEARANCE IN THE UPRIGHT POSITION: inconsistent esophageal retention EFFECTS OF TREATMENT STRATEGIES ATTEMPTED: Chin tuck posture = ineffective Left head turn = ineffective Right head turn = ineffective Cough and reswallow = ineffective Effort swallow = ineffective Double / multiple swallows = ineffective Liquid chaser = minimally effective / ineffective Reduced bolus size = = minimally effective Cued expectoration = effective DIET TEXTURE RECOMMENDATIONS: Will recommend a pureed textured, nectar thickened liquid diet. COMPENSATORY STRATEGIES RECOMMENDED: Reduced bolus volume, reduced rate of intake, liquid chaser, multiple swallows, seated upright at 90 degrees during PO intake, remain upright for 30-60 minutes post meal (dysmotility precaution), medications crushed with applesauce, INTERPRETATION OF RESULTS: Patient presents with moderate to severe pharyngeal dysphagia (R13.13) marked by significant pharyngeal dysmotility and reduced laryngeal vestibule closure resulting in prandial and post prandial penetration in addition to overt aspiration of thin liquids. Reduced closure of the airway during deglutition attributed to reduced hyolaryngeal excursion resulting in insufficient epiglottic inversion poor laryngeal vestibule closure / pressure / timing resulting in prandial penetration and minimal aspiration of thin liquids. 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 No improvement noted with execution of the chin tuck posture, multiple swallows, cough and reswallow, no significant improvement in pharyngeal clearance with head turn to either side. Sufficient cough response to expel penetrated material / laryngotracheal aspiration. RECOMMENDATIONS: Would consider this Patient to be at higher risk for both malnutrition and dehydration (due to extent of pharyngeal dysmotility and recommended diet texture restrictions), would caution removal of PEG tube. Patient requires intensive skilled speech-language intervention targeting continued diet texture management; training and implementation of recommended compensatory strategies; training and implementation of recommended oropharyngeal strengthening exercises to facilitate improved laryngeal vestibule closure / pressure, pharyngeal motility and pharyngoesophageal segment relaxation; neuromuscular electrical stimulation (NMES) / VitalStim; and Patient training targeting meal preparation / thickened liquid preparation. ADDITIONAL COMMENTS/RECOMMENDATIONS: Results and recommendations were discussed with the Patient immediately following MBS completion, with the Patient verbalizing understanding and agreement with all recommendations and education provided. Received message from the Patients daughter to contact post completion, though was unable to establish contact despite multiple attempts. Email sent with contact information provided. G-CODES: SWALLOWING [id number] Current Status: CK SWALLOWING G8997 Goal Status: CI SWALLOWING G8998 Discharge Status: CK 10/03/17 1609 <Electronically signed by Reza Maldonado M.A., [employer]-INTERACTIVE MARKETING STRATEGIST> Date Reza Maldonado M.A., [employer]-INTERACTIVE MARKETING STRATEGIST Electronically signed by John Bergman M.A., [facility]-INTERACTIVE MARKETING STRATEGIST on 10/08/17 14:51 Initialized on 10/08/17 14:50 - END OF NOTE Dysphagia Assessment - Swallowing Impairment Contributing Factors to Swallowing Impairment: Reduced Laryngeal Excursion - Impact Impact on Safety & Functioning: Risk for Aspiration, Risk for Inadequate Nutrition/Hydration - Recommendations Modified Barium Swallow/Cookie Swallow Recommended: Yes Swallowing Treatment: Yes - Diet Texture Recommendations Solids Other: Pureed Liquids: [place] Thick Coleman free water Protocol: Yes - Safety Saftey Precautions/Swallowing Recommendations (Check all that Apply): Upright Position at Least 30 Minutes After Meals, Small Sips & Bites when Eating, Multiple Swallows, Alternate Liquids & Solids, Other (Specify Below) Other: Medications in applesauce/puree, slow rate of instake - Compensatory Strategies Compensatory Strategies: Cough after swallow Other Impressions - Comments Vitalstim -: The modality of Vitalstim will be used for one month will a follow up modified barium swallow study. Plan - Plan Plan: A repeat MBS is scheduled for November 28 to determine progress towards decreasing penetration/aspiration. - Recommendations MBS: Yes - Frequency Frequency: 3x /Week Duration: 2 Weeks Visits in this POC: 6 - Prognosis Prognosis: Good - Goal #1-5 Goal #1: Pt. will tolerate the least restrictive means of nutrition to facilitate adequate hydration/nutrition with optimum safety and efficiency of the Pt.s swallowing function during P.O. intake without overt signs and symptoms of aspiration across 3 consecutive sessions Goal #2: Patient will complete oropharyngeal exercises while Vitalstim is in place on 4/5 trials on 3 consecutive sessions. Goal #3: .
--- NOTE | 2018-01-12 14:16 | HP.SP.DC ---
ST Discharge Summary - Discharged: Discharge: Dario Baker was discharged as of November 28, 2017 following his second Modified barium swallow study. He attended a total of 14 sessions after his evaluation on 10/07/17. The patient was already taking thin liquids and regular foods after the recommendation of pureed foods and nectar thickened liquids from his first modified barium swallow study. Dario verbalized an understanding of all risks associated with intake of thin liquids and regular foods. He made the decision to discontinue thickened liquids. He completed Vitalstim along with traditional dysphagia exercises. He was able to independently complete oropharyngeal exercises. After his second MBS, this therapist spoke with him on the phone and discussed rationale of discontinuing therapy due to lack of progress. The patient stated that he was aware of his history of whole body radiation which impacted his swallow ability in 2002 and he was not treated for dysphagia at that time. Therapist and patient are in agreement with discharge. A copy of this discharge summary will be sent to his referring physician.
== END 2017-11-19 19:00 | disposition home or self-care (01) ==
LOC: SP 14:30
PROVIDERS: Family Provider Family Medicine; PCP Family Medicine; Visit Provider Family Medicine
DX: R13.12 Dysphagia, oropharyngeal phase (principal)
CPT/HCPCS: 92526; 92610; G8996; G8997

== ENCOUNTER → 2017-11-28 12:33 | Outpatient (CLI) | payer MEDICARE, OTHER, SELFPAY ==
--- NOTE | 2017-11-28 13:00 | SP.MBSS_ITS ---
PRIMARY / SECONDARY DIAGNOSIS: dysphagia (R13.10) REFERRING PHYSICIAN: Dr. Chaka Judd MD CURRENT DIET: regular textures, thin liquids DENTITION: WFL MENTAL STATUS: WNL RESPIRATORY STATUS: O2 via room air PREVIOUS MODIFIED BARIUM SWALLOW STUDY: 10/03/2017 MBS revealed moderate to severe pharyngeal dysphagia (R13.13) with overt grade III aspiration of thin liquids. Patient reports prior workup via FEES, possibly via MBS during [facility] admission, reports recent FEES revealed what appears to be pharyngeal dysmotility w/ post prandial penetration and aspiration based on description. REASON FOR REFERRAL: Patient is a 67 year old male referred for a repeat modified barium swallow ( MBS) study to objectively assess the Patients oropharyngeal swallow function under fluoroscopy secondary to persistent severe dysphagia requiring percutaneous endoscopic gastrostomy (PEG) tube placement associated with myelodysplasia status post full body radiation further complicated by chronic obstructive pulmonary disease. Patient recently admitted to [facility] ([facility]) for upwards of two weeks following choking incident ( cheeseburger) prior to admission, with a separate incident reported during [facility] admission (lodging of pills), with workup revealing an esophageal perforation; admission complicated by cardiac pulmonary arrest and aspiration requiring intubation; PEG tube placed during [facility] admission. Patient later transferred to [facility], underwent a fiberoptic endoscopic evaluation of swallowing (FEES). Patient advanced to a regular textured, thin liquid diet with recommendations for execution of the chin tuck posture in addition to right head turn during PO intake. Patient reports continued coughing during PO intake of all textures. All reports not available at time of assessment. 2017 MBS revealed overt grade III aspiration with thin liquids with severe dysmotility, recommended a pureed textured, nectar thickened liquid diet with outpatient speech-language intervention targeting dysphagia. Patient has dedicatedly participated in outpatient intervention, though has politely declined alterations of liquids and solids due to personal preference, with re- assessment under fluoroscopy to identify any changes in the swallow function following intervention, and to re-establish the least restrictive means of nutrition and current aspiration risk. 10/07/2017 barium swallow study revealed a small sliding hiatal hernia; no evidence of gastroesophageal reflux; aspiration of barium. MEDICAL HISTORY: Myelodysplasia status post full body radiation (2002), chronic obstructive pulmonary disease, alcohol abuse, anxiety and depression, hyperlipidemia, hypertension STUDY FINDINGS: Patient participated in a Modified Barium Swallow (MBS) study on 11/28/2017. Dr. Smyth was the radiologist present for this evaluation. This study was recorded in the lateral view and images were sent to PACs for storage. The following consistencies were presented to this patient for analysis of oropharyngeal swallow function: thin liquids, pudding, and a regular textured, Millie Doone cookie. Results of the MBS are as follows: PENETRATION / ASPIRATION SCALE (GLEZ): 1 = does not enter airway 2 = enters airway/above vocal folds/ejected 3 = enters airway/above vocal folds/not ejected 4 = enters airway/contacts vocal folds/ejected 5 = enters airway/contacts vocal folds/not ejected 6 = enters airway/below vocal folds/ejected 7 = enters airway/below vocal folds/not ejected despite effort 8 = enters airway/below vocal folds/no effort VIDEOFLOROSCOPIC SCALE SCORE (GLEZ): Grade I = aspiration of material that has penetrated into the laryngeal vestibule, intact cough reflex Grade II = aspiration < 10 % of the bolus, intact cough reflex Grade III = aspiration of < 10 % of the bolus, reduced cough reflex or aspiration of > 10 % of the bolus, intact cough reflex Grade IV = aspiration of > 10 % of the bolus, reduced cough reflex PENETRATION / ASPIRATION SCALE (SCORE) WITH VIDEOFLOROSCOPIC SCALE SCORE: Thin liquid - 5 mL tsp.: 1 Thin liquids via cup (single sip): 3 Thin liquids via cup (single sip): 5 Thin liquids via cup (sequential swallows): 8 - Grade III Thin liquids via cup (effort / double swallow): 2 Thin liquids via cup (effort / double swallow): 3 Thin liquids via cup (effort / double swallow): 1 Thin liquids via cup (supraglottic swallow): 1 Thin liquids via cup (supraglottic swallow): 2 Thin liquids via cup (supraglottic swallow): 3 Pudding via spoon: 3* Thin liquids via cup (supraglottic swallow): 1 Regular textured cookie: 1 Thin liquids via cup (supraglottic swallow): 1 * denotes penetration of thin liquids retained within the valleculae from previous trials. IMPRESSION: DIAGNOSIS: moderate to severe pharyngeal dysphagia (R13.13) ORAL PHASE CHARACTERIZED BY: LABIAL SEAL: no labial escape TONGUE CONTROL DURING BOLUS MANIPULATION: cohesive bolus between tongue to palatal seal BOLUS PREPARATION / MASTICATION: timely and efficient chewing and mashing BOLUS TRANSPORT / LINGUAL MOTION: brisk tongue motion ORAL RESIDUE: residue collection on oral structures PHARYNGEAL PHASE CHARACTERIZED BY: INITIATION OF PHARYNGEAL SWALLOW: bolus head in valleculae at first hyoid excursion SOFT PALATE ELEVATION: no bolus between soft palate and pharyngeal wall LARYNGEAL ELEVATION: complete superior movement of thyroid cartilage with complete approximation of arytenoids cartilage to epiglottic petiole ANTERIOR HYOID EXCURSION: no anterior movement EPIGLOTTIC MOVEMENT: partial epiglottic inversion LARYNGEAL VESTIBULE CLOSURE AT HEIGHT OF SWALLOW: incomplete laryngeal vestibule closure with narrow to moderate column of air/contrast in laryngeal vestibule PHARYNGEAL STRIPPING WAVE: pharyngeal stripping wave absent PHARYNGOESOPHAGEAL SEGMENT OPENING: minimal distension and minimal duration with marked obstruction of flow TONGUE BASE RETRACTION: narrow column of contrast between tongue base and posterior pharyngeal wall PHARYNGEAL RESIDUE: majority of contrast within or on pharyngeal structures ( primarily within the valleculae, to a lesser extent the pyriforms); trace residue within or on pharyngeal structures (pharyngoesophageal segment opening) ESOPHAGEAL PHASE CHARACTERIZED BY: ESOPHAGEAL BOLUS CLEARANCE IN THE UPRIGHT POSITION: could not view EFFECTS OF TREATMENT STRATEGIES ATTEMPTED: Supraglottic swallow = moderately effective Effort swallow = moderately effective with double swallow Double / multiple swallows = ineffective alone Cough and reswallow = ineffective Liquid chaser = ineffective Reduced bolus size = = minimally effective DIET TEXTURE RECOMMENDATIONS: Will continue to recommend a pureed textured, nectar thickened liquid diet COMPENSATORY STRATEGIES RECOMMENDED: Supraglottic swallow, reduced bolus volume, reduced rate of intake, alternate bites and sips, seated upright at 90 degrees during PO intake, remain upright for 30-60 minutes post meal (dysmotility precaution), medications crushed with applesauce, INTERPRETATION OF RESULTS: Patient presents with moderate to severe pharyngeal dysphagia (R13.13) secondary to the diagnosis of myelodysplasia status post full body radiation complicated by chronic obstructive pulmonary disease, with results similar in nature to the previous study. Pharyngeal phase marked by SEVERE pharyngeal dysmotility and reduced laryngeal vestibule closure resulting in prandial and post prandial penetration in addition to SILENT aspiration of thin liquids. Reduced closure of the airway during deglutition attributed to reduced hyolaryngeal excursion resulting in insufficient epiglottic inversion poor laryngeal vestibule closure / pressure / timing resulting in prandial penetration and minimal aspiration of thin liquids. 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 Noted spillage of thin liquids into the laryngeal vestibule during trials of pureed textures accounting for advanced penetration aspiration scale score. Improvement noted in regards to airway protection / ejection of penetrated material in addition to moderate improvements in pharyngeal clearance with execution of the supraglottic swallow during ingestion of thin liquids; however improvements noted are not significant enough to suggest that the Patient will be able to consistently protect the airway during / following deglutition, with concerns for inhalation of retained materials within the pharynx post deglutition dependent on the properties of retained materials (none observed). Patient noted to SILENTLY aspirate with thin liquids, with clinical assessment at bedside relying on identification of classic overt signs and symptoms of aspiration unreliable (overt during prior study). RECOMMENDATIONS: Despite effort, the Patient has not responded to intervention targeting improvement in oropharyngeal functioning, with results wholly similar in nature to the previous MBS with the exception of the Patients response to aspiration ( SILENT aspiration). Would consider the Patients current level of functioning to be reflective of his current baseline functioning, with limited potential for physiological improvements. The Patient has been rather upfront regarding his intentions to politely decline any recommendations for nectar thickened liquids , expressing clear understanding of potential medical complications and increased likelihood of mortality, and sound decision making regarding choice to proceed with a quality vs. quantity approach to care regarding usage of thickening agents or dietary modifications. Would consider this Patient to be at higher risk for both aspiration and aspiration related medical complications (extent of dysmotility, presence of silent aspiration), with much higher risk of aspiration with any additional etiologies that deplete the immune system, would caution removal of PEG tube. Patient may benefit from additional skilled speech-language intervention targeting training and implementation of recommended compensatory strategies (namely the supraglottic swallow) in addition to Patient training targeting meal preparation / thickened liquid preparation pending outpatient therapist recommendations following discussion of results ADDITIONAL COMMENTS/RECOMMENDATIONS: Results and recommendations were discussed with the Patient immediately following MBS completion, with the Patient verbalizing understanding and agreement with all recommendations and education provided. IMAGE COUNT: [id number] G-CODES: SWALLOWING G8996 Current Status: CK SWALLOWING G8997 Goal Status: CK SWALLOWING G8998 Discharge Status: CK
--- NOTE | 2017-11-28 13:10 | RAD_ITS ---
STUDY: SWALLOWING STUDY REASON FOR EXAM: Male, 67 years old. Dysphagia. TECHNIQUE: The examination was performed with Speech Pathology in attendance. Under fluoroscopic observation, the patient ingested thin barium, thick barium, barium pudding, and barium coated cracker. FLUOROSCOPY TIME: 3:04 minutes/seconds. 2556 fluoroscopic images were obtained. RADIOLOGIST INVOLVEMENT: Radiologist was present and providing direct supervision. COMPARISON: None. FINDINGS: The following was observed during swallowing of the various mixtures of barium: Thin Barium: Silent aspiration with ingestion of thin liquids. This improves with the supraglottic swelling technique. Thick Barium: There was no evidence of aspiration or laryngeal penetration. Barium Pudding: There was no evidence of aspiration or laryngeal penetration. Moderate degree of residual. Barium Coated Cracker: There was no evidence of aspiration or laryngeal penetration. Moderate degree of residual. RAD/Swallowing Function w/Video IMPRESSION: Penetration and silent aspiration with ingestion of thin liquids. This improves with supraglottic swallowing technique. The swallow study findings were discussed with the patient by the speech pathologist at the conclusion of the examination. Please see speech pathology report for more information and recommendations. Electronically Signed: Thom Smyth MD at 14:22 EDT Tel [phone], Service support ,
== END ==
PROVIDERS: Family Provider Family Medicine; PCP Family Medicine; Visit Provider Family Medicine
DX: R13.13 Dysphagia, pharyngeal phase (principal)
CPT/HCPCS: 74230; 92611; G8996; G8997; G8998

== ENCOUNTER 2018-02-15 16:27 | Emergency (ER) | payer MEDICARE, OTHER, SELFPAY ==
[2018-02-15 16:29] VITALS: BP 79/53; PULSE 87; RESP 18; TEMP 36.5; O2SAT 93; BMI 19.8
[2018-02-15 16:45] VITALS: BP 103/69; PULSE 73; RESP 26
--- NOTE | 2018-02-15 17:08 | CT_ITS ---
STUDY: CT BRAIN WITHOUT CONTRAST REASON FOR EXAM: Male, 67 years old. Injury. RADIATION DOSAGE (If Supplied By Facility): CTDIvol = ( 44.99 ) mGy, DLP = ( 846.73 ) mGycm TECHNIQUE: Transaxial CT imaging of the brain was performed without administration of intravenous contrast material. Individualized dose optimization techniques were used for this CT. COMPARISON: None. FINDINGS: Normal soft tissue structures. Normal calvarium. Normal size ventricles and extra-axial spaces for the patient's age. There are areas of decreased attenuation within the white matter tracts of the supratentorial brain, consistent with microvascular disease changes. There are bilateral lacunar infarcts of the basal ganglia and thalami. Normal brainstem. Normal cerebellum. There is no intracranial hemorrhage. There are no findings of an acute ischemic infarction. There is mucoperiosteal inflammatory disease of the paranasal sinuses consistent with severe chronic sinusitis. CT/Brain/Head without Contrast IMPRESSION: No definite acute abnormality. White matter disease and chronic lacunar infarcts. Electronically Signed: Vincenzo Andrews MD at 17:56 EDT , Service support ,
--- NOTE | 2018-02-15 17:08 | CT_ITS ---
STUDY: CT FACIAL BONES WITHOUT CONTRAST REASON FOR EXAM: Male, 67 years old. A right-sided black eye after closed head injury and. RADIATION DOSAGE (If Supplied By Facility): CTDIvol = ( 29.38 ) mGy, DLP = ( 540.11 ) mGycm TECHNIQUE: The patient was scanned in a multi detector CT scanner. Sagittal and coronal images were reconstructed. Individualized dose optimization techniques were used for this CT. COMPARISON: CT of the head dated February 15, 2018. FINDINGS: There is soft tissue edema anterior to the right maxilla probably related to soft tissue contusion. There is a large amount of beam hardening streak artifact arising from patient's dental amalgam. Normal orbital stack and orbital contents. Normal nasal bones and anterior nasal spine. The stack of the frontal sinuses, stack of maxillary sinuses, pterygoid plates, zygomatic arches and mandible have a normal appearance. There is no demonstrated fracture. There is opacification of right maxillary sinus. There is moderate mucosal thickening with a left maxillary sinus. There is mucosal thickening within the right sphenoid sinus with mucous retention cyst or polyp. There is deviation of nasal septum towards the left. There is a intracanal dural calcification posterior to C3 and C4 this is not imaged in its entirety on this study. Atlantoaxial and atlantooccipital relationships are within normal limits. CT/Sinus/Facial Bone IMPRESSION: 1. Soft tissue contusion anterior to the right maxilla. 2. No CT evidence of facial bone fracture. 3. Severe right maxillary sinus disease with complete opacification and moderate left maxillary and sphenoid sinus disease. Electronically Signed: Kesha Mancini MD at 18:08 EDT , Service support ,
[2018-02-15 17:18] LABS: Absolute Lymphocyte Count 1.58 X10^3/ul (0.83-4.51); Absolute Neutrophil Count 4.6 X10^3/uL (2.0-7.7); Basophil# 0.04 X10^3/uL; Basophil% 0.6 % (0-1); Eosinophil# 0.03 X10^3/uL; Eosinophils% 0.4 % (0-5); Lymphocyte # 1.58 X10^3/ul (4.0); Lymphocyte % 23.2 % (19-41); Mean Corp Hgb Conc 33.3 g/gl (32-36); Mean Corpuscular Hgb 31.1 pg (27.0-32.0); Mean Corpuscular Volume 93.3 fL (80-94); Mean Platelet Vol. 8.6 fl (6.2-12.0); Monocyte# 0.59 X10^3/uL; Monocyte% 8.7 % (0-10); Neutrophil # 4.56 X10^3/uL (2.7-7.7); Platelet Count 149 K/mm3 (150-450); RBC Distribution Width CV 15.5 % (11.6-14.6); RBC Distribution Width SD 51.4 fl (35.1-43.9); Red Blood Count 3.86 M/mm3 (4.6-6.2); White Blood Count 6.8 K/mm3 (4.4-11.0)
[2018-02-15 17:20] LABS: POSITIVE COUNT NO; POSITIVE DIFFERENTIAL NO; POSITIVE MORPHOLOGY NO
[2018-02-15 18:03] VITALS: BP 151/97; PULSE 78; RESP 20
[2018-02-15 18:15] LABS: ALB/GLOB Ratio 1.1 RATIO (0.9-2.4); AST(SGOT) 67 U/L (15-37); Alanine Aminotransfer ALT/SGPT 47 U/L (16-61); Albumin, Serum 3.4 g/dL (3.2-5.0); Alkaline Phosphatase 63 U/L (45-117); Anion Gap 14 (5-15); BUN 31 mg/dL (7-18); BUN/Creat Ratio 22.3 RATIO (10-20); Calcium,Total 8.3 mg/dL (8.5-10.1); Chloride 96 mmol/L (98-107); Creatinine, Serum 1.39 mg/dL (0.70-1.30); EST Glomerular Filtration Rate 54 mL/min (>60); Est Glom Filt Rate - Afr Amer 66 mL/min (>60); Estimated Creatinine Clearance 50.31 ml/min; Globulin 3.2 g/dL (2.2-4.2); Glucose 144 mg/dL (74-106); Potassium 3.4 mmol/L (3.5-5.1); Protein, Total 6.6 g/dL (6.4-8.2); Sodium Level 137 mmol/L (136-145)
[2018-02-15 18:28] VITALS: BP 133/94; PULSE 79; RESP 22
--- NOTE | 2018-02-15 18:46 | ED.DCSUM_ITS ---
- ER Visit Summary Date of Service: 02/15/18 Chief Complaint: Alcohol intoxication History of Present Illness: The patient is a 67 M who presents with alcohol intoxication. The brought in because she is concerned that he has been drinking heavily over the last several days. She states he has not showered in the last 3-4 days and has not really eating well. He has been an alcoholic for 6 years. The patient himself has no complaints. He denies fever chest pain shortness of breath nausea vomiting diarrhea. He did sustain some bruising to his right eye and does not recall when that happened. He denies any eye pain or visual changes Physical Examination: Afebrile vitals are normal Patient has right-sided subconjunctival hemorrhage without hyphema pupils equally round reactive to light Moist mucous membranes Heart regular rate and rhythm Lungs are clear Abdomen soft Alert No focal or lateralizing neurological deficits Test Results: Labs notable for BUN 31, creatinine 1.39 which is increased from prior labs. Liver function notable for AST [address] the head shows no acute abnormality. CT of the facial bones shows soft tissue contusion of the right maxilla no fracture. Emergency Department Course and Treatment: Patient was treated here with IV fluids. On reevaluation he is resting comfortably and wishes to leave. He was advised that he is dehydrated and that his renal function was slightly increased but again he was treated with IV fluids here. I see no indication for hospitalization. He was referred for outpatient follow-up. Patient discharged. Treatment Plan: [] Disposition: Discharge Impression: Alcohol abuse Dehydration Facial contusion This note was generated with Numblebee dictation software. It may contain incorrect words, spelling, and punctuation that were not noted in review of the chart prior to signing ED Disposition - Plan for ED Patient: Chief Complaint: ETOH Intox Referrals: Marck Lee MD [Primary Care Provider] -
--- NOTE | 2018-02-15 18:46 | ED.DEP ---
ED Disposition - Plan for ED Patient: Chief Complaint: ETOH Intox Instructions: ED Alcohol Abuse, ED Contusion Face Referrals: Marck Lee MD [Primary Care Provider] -
== END 2018-02-15 19:13 | disposition home or self-care (01) ==
LOC: ED 18:54
PROVIDERS: Emergency Provider Emergency Medicine; Family Provider Family Medicine; PCP Family Medicine
DX: F10.10 Alcohol abuse, uncomplicated (principal); E86.0 Dehydration; S00.11XA Contusion of right eyelid and periocular area, initial encounter; Y90.9 Presence of alcohol in blood, level not specified; X58.XXXA Exposure to other specified factors, initial encounter; Y93.89 Activity, other specified; Y92.89 Other specified places as the place of occurrence of the external cause; Y99.8 Other external cause status
CPT/HCPCS: 70450; 70486; 80053; 85025; 99284; J7030; A4216

== ENCOUNTER 2018-03-02 13:32 | Inpatient (IN) | payer MEDICARE, OTHER, SELFPAY ==
[2018-03-02] VITALS (9 sets, daily range): BP systolic 96–131; BP diastolic 69–79; PULSE 86–102; RESP 16–26; TEMP 37.2–37.6; O2SAT 93–96; BMI 18.8; BMI 18.6
--- NOTE | 2018-03-02 14:46 | EKG12_ITS ---
Test Reason : Blood Pressure : / mmHG Vent. Rate : 090 BPM Atrial Rate : 090 BPM P-R Int : 154 ms QRS Dur : 092 ms QT Int : 376 ms P-R-T Axes : 038 022 057 degrees QTc Int : 459 ms Normal sinus rhythm Normal ECG Confirmed by TATE MARCUS, DARIN ([id number]), acquisition editor GIANNA SINGLETARY ([id number]) on 03/05/2018 1:42:45 PM Referred By: Justo Burr Confirmed By:DARIN YBARRA MD
--- NOTE | 2018-03-02 14:57 | RAD_ITS ---
STUDY: X-RAY CHEST REASON FOR EXAM: Male, 67 years old. Shortness of breath, cough, hypoxia, dizziness, history of recent aspiration pneumonia. History of CVA, TIA, COPD, asthma, myelodysplasia. TECHNIQUE: Portable chest COMPARISON: 08/08/2017. FINDINGS: Multiple punctate calcifications are present in the base of the left lower lobe, in a region of postsurgical changes of the left lung. Stable lines adjacent. This likely reflects sequela from prior pneumonia. There are persistent airspace opacities adjacent to the calcifications. Persistent pneumonia cannot be excluded. Right mid to upper lung clear. Left lung clear. Normal cardiomediastinal silhouette, musa and pleural margins. No acute osseous or upper abdominal process. RAD/Chest 1 View (Portable) IMPRESSION: Persistent ill-defined airspace opacities at the left medial lung base, associated with new stifled calcifications of the left lung base that were not present on the study of 08/08/2017. These features likely represent sequela of prior pneumonia. A previous aspiration pneumonia was reported. Persistent pneumonia cannot entirely excluded given the persistent ill-defined airspace opacities. Consider follow-up CT chest for more complete characterization. Electronically Signed: Art Meza, at 15:30 EDT Tel , Service support ,
[2018-03-02 15:01] LABS: Absolute Lymphocyte Count 0.23 X10^3/ul (0.83-4.51); Absolute Neutrophil Count 11.5 X10^3/uL (2.0-7.7); Basophil# 0.02 X10^3/uL; Basophil% 0.2 % (0-1); Hematocrit 32.7 % (40-54); Hemoglobin 10.4 g/dl (13.0-16.5); Lymphocyte # 0.23 X10^3/ul (4.0); Lymphocyte % 1.8 % (19-41); Mean Corp Hgb Conc 31.8 g/gl (32-36); Mean Corpuscular Volume 97.3 fL (80-94); Monocyte# 0.76 X10^3/uL; Monocyte% 6.1 % (0-10); Neutrophil % 91.6 % (47-70); Platelet Count 402 K/mm3 (150-450); RBC Distribution Width CV 13.8 % (11.6-14.6); RBC Distribution Width SD 47.2 fl (35.1-43.9); Red Blood Count 3.36 M/mm3 (4.6-6.2); White Blood Count 12.6 K/mm3 (4.4-11.0)
[2018-03-02 15:03] LABS: Differential Indicated SCAN CRITERIA MET; POSITIVE COUNT NO; POSITIVE DIFFERENTIAL YES; POSITIVE MORPHOLOGY YES
[2018-03-02 15:07] LABS: Partial Thromboplast Time 27.4 Seconds (24.1-36.2); Prothrombin Time (Protime)PT. 13.3 SECONDS (11.7-14.9)
[2018-03-02 15:12] LABS: ALB/GLOB Ratio 0.8 RATIO (0.9-2.4); AST(SGOT) 32 U/L (15-37); Alanine Aminotransfer ALT/SGPT 66 U/L (16-61); Albumin, Serum 2.9 g/dL (3.2-5.0); Alkaline Phosphatase 72 U/L (45-117); Anion Gap 7 (5-15); BUN 28 mg/dL (7-18); BUN/Creat Ratio 15.4 RATIO (10-20); Calcium,Total 8.8 mg/dL (8.5-10.1); Chloride 101 mmol/L (98-107); Creatinine, Serum 1.82 mg/dL (0.70-1.30); EST Glomerular Filtration Rate 40 mL/min (>60); Est Glom Filt Rate - Afr Amer 48 mL/min (>60); Estimated Creatinine Clearance 36.71 ml/min; Globulin 3.6 g/dL (2.2-4.2); Glucose 109 mg/dL (74-106); Lactic Acid 1.9 mmol/L (0.4-2.0); Potassium 3.8 mmol/L (3.5-5.1); Protein, Total 6.5 g/dL (6.4-8.2); Sodium Level 136 mmol/L (136-145)
[2018-03-02 15:20] LABS: Differential Comment SCANNED
--- NOTE | 2018-03-02 16:23 | ED.VISSUMM ---
- ER Visit Summary Date of Service: 03/02/18 Chief Complaint: Weakness, cough History of Present Illness: The patient is a 67 M with weakness and 2 days of a cough that is becoming worse and productive. He has a history of aspiration pneumonia. He was noted to have a temperature of 101 last night. There is a history of alcoholism apparently has not had any alcohol for the past 10 days. No reported chest pain. He is progressively weak and was found to be hypoxic. He was seen at the PCP office first. Physical Examination: She appears cachectic and chronically ill, he does not appear toxic Dry mucous membranes, no obvious facial deformity No C-spine tenderness supple neck. Regular rate and rhythm without any obvious murmurs Breast sounds with bilateral wheezing, slightly tachypneic. When taken off the O2 he desaturates and to the high 80s. Abdomen soft and nontender no guarding or rebound Moves all extremities without any difficulty or pain. Skin does not show any obvious rashes or lesions, no trauma. Alert oriented ?3 with no gross focal deficit Emergency Department Course and Treatment: An overall unremarkable workup, however he is hypoxic, his lungs are quite coarse patient is a possibility of aspiration pneumonia especially with the fever, Unasyn IV was given patient received nebulizers because of the leukocytosis fever and hypoxia he will be admitted. Disposition: Admit stable Impression: [] COPD Fever Hypoxia This note was generated with Architonic dictation software. It may contain incorrect words, spelling, and punctuation that were not noted in review of the chart prior to signing ED Disposition - Plan for ED Patient: Chief Complaint: Hypotension Referrals: Marck Lee MD [Primary Care Provider] -
[2018-03-02] MEDS: Ipratropium/Albuterol Sulfate 3 ML AMPUL.NEB INHALATION ×2 (16:44→20:20)
--- NOTE | 2018-03-02 17:15 | PCM.HP.STD ---
<Barry Ryan - Last Filed: 03/02/18 17:15> Problem List (1) PNA (pneumonia) Status: Acute (2) Dysphagia Status: Chronic (3) Alcohol abuse Status: Chronic (4) Anxiety and depression Status: Chronic (5) Hyperlipidemia Status: Chronic (6) Hypertension Status: Chronic (7) Myelodysplasia Status: Chronic History of Present Illness Date of Admission: 03/02/18 Chief Complaint: Fever The patient is a 67 year old M with a hx of multiple episodes of aspiration 2/2 dysphagia with prior lobectomy for frequent pnas, hx of alcoholism, hx of hospital admission 2 weeks ago for falls, rib contusions, and alcohol detox, hx of MDS who presents to the ER with chief complaint of fever. He has had a fever x 2 days, at home as high as 101. He also has had worsening of cough with yellow sputum production and increased SOB. He states he has had dysphagia since a bone marrow transplant in 2002 and is supposed to be thickening his liquids at home but does not as he does not like it. He has no chest pain or pleurisy. He has no dizziness/lh/palp, or LE edema. He states he has not drank since before his last hospital admission. Formerly 1 pint lj today. [] Past Medical History Past Medical History (Chronic Problems): Chronic Problems Dysphagia (Chronic) Hypertension (Chronic) COPD (chronic obstructive pulmonary disease) (Chronic) Hyperlipidemia (Chronic) Alcohol abuse (Chronic) Anxiety and depression (Chronic) Myelodysplasia (Chronic) Allergies PANTANODINE Allergy (Uncoded 02/15/18 16:30) Unknown Home Medications: Ambulatory Orders Medication Instructions Recorded Albuterol Inhaler [Ventolin Hfa] 1 puff INHALATION PRN PRN 04/17/14 Simvastatin [Zocor] 20 mg PO QHS 04/17/14 traZODone [Desyrel] 50 mg PO DAILY 04/17/14 Aspirin [Aspirin, Baby] 81 mg PO DAILY@0800 08/08/17 Escitalopram Oxalate [Lexapro] 10 mg PO DAILY 08/08/17 Cinnamon Bark [Cinnamon] 1,000 mg PO BID 03/02/18 Fludrocortisone Acetate [Florinef] 0.1 mg PO DAILY 03/02/18 Garlic 1,000 mg PO DAILY 03/02/18 Multivit-Min/FA/Herbal No.245 1 each PO DAILY 03/02/18 [Alive Women's Gummy Vitamins] Naltrexone HCl 50 mg PO DAILY 03/02/18 Umeclidinium Brm/Vilanterol Tr 1 inh INHALATION DAILY 03/02/18 [Anoro Ellipta 62.5-25 Mcg INH] Surgical History: no surgical history, - - Right lung partial resection middle lobe, right inguinal hernia repair ?2, left inguinal hernia repair ?1, tonsillectomy, bone marrow transplant. Psychiatric History: Anxiety, Depression Lives: Spouse/ Significant Other Smoking Status: Former smoker Tobacco Use: Non-smoker Alcohol: Sober Drugs: None - *Family History Maternal History Items: Hypertension Paternal History Items: Heart Disease, Hypertension Review of Systems Constitutional: Reports: Chills, Fever. Denies: Weight Change HEENT: Denies: Head Aches, Sinus Congestion, Sinus Drainage Cardiovascular: Denies: Chest Pain, Heaviness, Light Headedness, Orthopnea, Palpitations Respiratory: Reports: Cough, Shortness of Breath, Shortness of breath at rest, Shortness of breath upon exertion, Wheezing. Denies: Sputum production Gastrointestinal: Denies: Abdominal Pain, Nausea, Vomiting Genitourinary: Denies: Dysuria Musculoskeletal: Denies: Joint Pain, Joint Tenderness Skin: Denies: Rash, Wounds Neurological: Denies: Numbness, Tingling, Focal weakness Psychiatric: Denies: Anxiety, Depression, Homicidal Ideations, Suicidal Ideations Hematologic/ Lymphatic: Denies: Easy Bruising, Easy Bleeding VTE Information - Inpt Only VTE Present on Admission: No VTE Mechan Device Prophylaxis: None VTE Pharm Prophylaxis ordered?: Yes Patient Problems: Active and Suspected Problems PNA (pneumonia) (Acute) - Physical Exam General: Alert, Oriented x3, Cooperative HEENT: Atraumatic, PERRLA, EOMI, Normocephalic Neck: Supple, No JVD, Negative Carotid Bruits Lungs: Diminished, Rales, Wheezes Cardiovascular: Regular rate, No murmurs Abdomen: Bowel Sounds Present, Soft, Non Tender Extremities: No edema, Capillary Refill Less than 3 Seconds Skin: No rashes, No breakdown Musculoskeletal: No Tenderness to Palpation of Joints or Extremities Neurological: Cranial nerves II-XII grossly intact Psych/Mental Status: Normal Affect, Appropriate, Alert and oriented to time, place, person, mood and affect Vital Signs Temp Pulse Resp BP Pulse Ox 99.5 F H 100 26 H 96/69 94 03/02/18 15:04 03/02/18 17:03 03/02/18 17:03 03/02/18 17:03 03/02/18 17:03 Oxygen Flow Rate (L/min) 2 Oxygen Delivery Method Nasal Cannula Weight: 143 lb 4.807 oz Body Mass Index (BMI) 18.8 Finger Stick Blood Glucose 109 Laboratory Tests Past 24 Hrs 03/02/18 03/02/18 03/02/18 13:46 13:46 13:46 WBC 12.6 H RBC 3.36 L Hgb 10.4 L Hct 32.7 L MCV 97.3 H MCH 31.0 MCHC 31.8 L RDW 13.8 RDW Differential 47.2 H Plt Count 402 MPV 9.0 Immature Gran % (Auto) 0.300 Neut % (Auto) 91.6 H Lymph % (Auto) 1.8 L [place] % (Auto) 6.1 Eos % (Auto) 0.0 Baso % (Auto) 0.2 Absolute Neuts (auto) 11.5 H Absolute Lymphs (auto) 0.23 L Total Counted Not Reportable Differential Comment SCANNED PT 13.3 INR 1.0 APTT 27.4 Sodium 136 Potassium 3.8 Chloride 101 Carbon Dioxide 28.0 Anion Gap 7 BUN 28 H Creatinine 1.82 H Estim Creat Clear Calc 36.71 Est GFR (MDRD) Af Amer 48 L Est GFR (MDRD) Non-Af 40 L BUN/Creatinine Ratio 15.4 Glucose 109 H Lactic Acid Calcium 8.8 Total Bilirubin 0.20 AST 32 ALT 66 H Alkaline Phosphatase 72 Total Protein 6.5 Albumin 2.9 L Globulin 3.6 Albumin/Globulin Ratio 0.8 L Ethyl Alcohol 03/02/18 03/02/18 13:46 13:46 WBC RBC Hgb Hct MCV MCH MCHC RDW RDW Differential Plt Count MPV Immature Gran % (Auto) Neut % (Auto) Lymph % (Auto) [place] % (Auto) Eos % (Auto) Baso % (Auto) Absolute Neuts (auto) Absolute Lymphs (auto) Total Counted Differential Comment PT INR APTT Sodium Potassium Chloride Carbon Dioxide Anion Gap BUN Creatinine Estim Creat Clear Calc Est GFR (MDRD) Af Amer Est GFR (MDRD) Non-Af BUN/Creatinine Ratio Glucose Lactic Acid 1.9 Calcium Total Bilirubin AST ALT Alkaline Phosphatase Total Protein Albumin Globulin Albumin/Globulin Ratio Ethyl Alcohol 5.0 Assessment/Plan All Active Problems PNA (pneumonia) (Acute) CVA (cerebral infarction) (Acute) 1. Acute sepsis 2/2 RLL aspiration vs HCAP - sepsis noted per tachycardia, tachypnea, leukocytosis, cxr c/w RLL pna. Start zosyn, MRSA swab. Add vanc if +. Frequent episodes of aspiration pna with hx lobectomy 2/2 pna. Speech therapy c/s. Mucinex, blood + sputum cx, urine antigens. PEP therapy, IS, duonebs. Currently stable on 2 lpm o2. Lactate neg. He states he does not have COPD however he is on Anoro Ellipta at home + Ventolin. 2. Dysphagia - speech eval. Pt noncompliant with thickened liquids at home. 3. Hx MDS, prior bone marrow transplant 2002. Mild anemia, mildly macrocytic. 4. Hx alcoholism - detox'd 2 weeks ago, states he no longer drinks. CIWA scale added. Alcohol level 5.0. On naltrexone. 5. MICKI - IV fluids. 6. Anxiety/Depression - home meds 7. HLD - statin DVT ppx: heparin DC planning: PTOT, recently in hospital for falls This patient was seen by Barry Ryan PA-C under the supervision of Doctor Aminah. <Justo Burr F - Last Filed: 03/02/18 18:04> History of Present Illness The patient is a 67 year old M [] Past Medical History Allergies PANTANODINE Allergy (Uncoded 02/15/18 16:30) Unknown - Physical Exam Vital Signs Temp Pulse Resp BP Pulse Ox 99.1 F 96 16 108/71 94 03/02/18 17:50 03/02/18 17:50 03/02/18 17:50 03/02/18 17:50 03/02/18 17:50 Oxygen Flow Rate (L/min) 2 Oxygen Delivery Method Room Air Weight: 140 lb 12.8 oz Body Mass Index (BMI) 18.6 Finger Stick Blood Glucose 109 Laboratory Tests Past 24 Hrs 03/02/18 03/02/18 03/02/18 13:46 13:46 13:46 WBC 12.6 H RBC 3.36 L Hgb 10.4 L Hct 32.7 L MCV 97.3 H MCH 31.0 MCHC 31.8 L RDW 13.8 RDW Differential 47.2 H Plt Count 402 MPV 9.0 Immature Gran % (Auto) 0.300 Neut % (Auto) 91.6 H Lymph % (Auto) 1.8 L [place] % (Auto) 6.1 Eos % (Auto) 0.0 Baso % (Auto) 0.2 Absolute Neuts (auto) 11.5 H Absolute Lymphs (auto) 0.23 L Total Counted Not Reportable Differential Comment SCANNED PT 13.3 INR 1.0 APTT 27.4 Sodium 136 Potassium 3.8 Chloride 101 Carbon Dioxide 28.0 Anion Gap 7 BUN 28 H Creatinine 1.82 H Estim Creat Clear Calc 36.71 Est GFR (MDRD) Af Amer 48 L Est GFR (MDRD) Non-Af 40 L BUN/Creatinine Ratio 15.4 Glucose 109 H Lactic Acid Calcium 8.8 Total Bilirubin 0.20 AST 32 ALT 66 H Alkaline Phosphatase 72 Total Protein 6.5 Albumin 2.9 L Globulin 3.6 Albumin/Globulin Ratio 0.8 L Ethyl Alcohol 03/02/18 03/02/18 13:46 13:46 WBC RBC Hgb Hct MCV MCH MCHC RDW RDW Differential Plt Count MPV Immature Gran % (Auto) Neut % (Auto) Lymph % (Auto) [place] % (Auto) Eos % (Auto) Baso % (Auto) Absolute Neuts (auto) Absolute Lymphs (auto) Total Counted Differential Comment PT INR APTT Sodium Potassium Chloride Carbon Dioxide Anion Gap BUN Creatinine Estim Creat Clear Calc Est GFR (MDRD) Af Amer Est GFR (MDRD) Non-Af BUN/Creatinine Ratio Glucose Lactic Acid 1.9 Calcium Total Bilirubin AST ALT Alkaline Phosphatase Total Protein Albumin Globulin Albumin/Globulin Ratio Ethyl Alcohol 5.0 Code Visit Addendum: Dr. Burr I personally examined the patient and reviewed the chart. I agree with the above. 67-year-old male presenting with sepsis secondary to either right middle lobe aspiration or hospital-acquired pneumonia. The reason for the difficulty is he has had a prior marrow transplant and he states that since the transplant he has had dysphasia. He has had multiple swallowing evaluations by speech therapy in the past at multiple different institutions and they were told that this was a chronic problem. He is on a dysphasia diet at home however he says that he continues to have slight episodes of aspiration. Have a PEG tube placed at one-point however he had excessive diarrhea due to tube feeds and the PEG tube was removed. So he was recently [facility] for couple of days undergoing alcohol withdrawal. He presented intoxicated at that institution after a fall and he also had rib contusions. Therefore will treat as a hospital-acquired pneumonia, will obtain a MRSA swab to determine whether or not to add vancomycin to Zosyn. He does also have a mild MICKI and will therefore be started on fluids. Inpatient E&M: [id number] Init Hosp L3
[2018-03-02] MEDS: 0.9% Normal Saline 1,000 ML 125 ML IV (18:32)
[2018-03-02] MEDS: Piperacil/Tazobactam 3.375 GM/50 ML ML IV (20:23)
[2018-03-02 20:30] LABS: M R Staph aureus DNA By PCR Negative (Negative); Probe Check PASS; Specimen Processing Control PASS
[2018-03-02] MEDS: Atorvastatin Calcium 10 MG Tablet PO (22:16)
[2018-03-02] MEDS: Heparin Injection (Vial) 5,000 UNIT/ML VIAL 5000 UNIT SC (22:16)
[2018-03-03] VITALS (10 sets, daily range): BP systolic 72–146; BP diastolic 48–85; PULSE 87–102; RESP 16–20; TEMP 36.9–37.7; O2SAT 93–99
[2018-03-03 05:52] LABS: Absolute Lymphocyte Count 0.69 X10^3/ul (0.83-4.51); Basophil# 0.03 X10^3/uL; Basophil% 0.2 % (0-1); Eosinophil# 0.01 X10^3/uL; Eosinophils% 0.1 % (0-5); Hematocrit 29.9 % (40-54); Hemoglobin 9.8 g/dl (13.0-16.5); Lymphocyte # 0.69 X10^3/ul (4.0); Lymphocyte % 4.4 % (19-41); Mean Corp Hgb Conc 32.8 g/gl (32-36); Mean Corpuscular Hgb 31.4 pg (27.0-32.0); Mean Corpuscular Volume 95.8 fL (80-94); Mean Platelet Vol. 8.6 fl (6.2-12.0); Monocyte# 0.85 X10^3/uL; Monocyte% 5.4 % (0-10); Neutrophil # 14.02 X10^3/uL (2.7-7.7); Neutrophil % 89.3 % (47-70); Platelet Count 345 K/mm3 (150-450); RBC Distribution Width CV 14.1 % (11.6-14.6); RBC Distribution Width SD 47.2 fl (35.1-43.9); Red Blood Count 3.12 M/mm3 (4.6-6.2); White Blood Count 15.7 K/mm3 (4.4-11.0)
[2018-03-03 05:59] LABS: POSITIVE COUNT NO; POSITIVE DIFFERENTIAL NO; POSITIVE MORPHOLOGY NO
[2018-03-03] MEDS: Piperacil/Tazobactam 3.375 GM/50 ML ML IV (05:59)
[2018-03-03 06:09] LABS: Anion Gap 7 (5-15); BUN 26 mg/dL (7-18); BUN/Creat Ratio 22.4 RATIO (10-20); Calcium,Total 8.4 mg/dL (8.5-10.1); Chloride 102 mmol/L (98-107); Creatinine, Serum 1.16 mg/dL (0.70-1.30); EST Glomerular Filtration Rate 67 mL/min (>60); Est Glom Filt Rate - Afr Amer 81 mL/min (>60); Estimated Creatinine Clearance 56.59 ml/min; Glucose 116 mg/dL (74-106); Potassium 3.6 mmol/L (3.5-5.1); Sodium Level 138 mmol/L (136-145)
[2018-03-03] MEDS: 0.9% Normal Saline 1,000 ML 125 ML IV (06:26)
[2018-03-03] MEDS: Acetaminophen 325 MG Tablet 650 MG PO ×2 (06:26→22:26)
[2018-03-03] MEDS: Ipratropium/Albuterol Sulfate 3 ML AMPUL.NEB INHALATION ×3 (06:40→18:54)
[2018-03-03] MEDS: Fludrocortisone Acetate 0.1 MG Tablet PO (09:08)
[2018-03-03] MEDS: Aspirin 81 MG TAB.CHEW PO (09:08)
[2018-03-03] MEDS: Escitalopram Oxalate 10 MG Tablet PO (09:08)
[2018-03-03] MEDS: Heparin Injection (Vial) 5,000 UNIT/ML VIAL 5000 UNIT SC ×2 (09:10→22:17)
--- NOTE | 2018-03-03 10:29 | CASEMGMT ---
RN CM Assessment PCP: URSZULA Mijares Pharmacy: [facility] Prescription coverage: yes Living Arrangements: Lives with , one story home DME:none Social Work Consult: no Intro role of CM to patient in room. He states he is independent, no DME use, drives. RN BREEZY inquired re: ETOH rehab and how pt is doing with recovery. Pt states he doing well, no ETOH use since detox. CIWA scale has been 0, (was 3 this am due to headache). Denies concerns re: dc, states he is able to f/u with physician appts. -Discussed dysphagia diet. Pt states he cannot tolerate texture of thickened liquids. States he tries to be careful @ home. DC PLAN: Home
--- NOTE | 2018-03-03 12:04 | PN_ITS ---
Patient Problems: Active and Suspected Problems PNA (pneumonia) (Acute) Subjective: Yellow sputum productive cough continues. No fever or chills. Breathing / SOB improved. No dizziness, LH. - Physical Exam General: Alert, Oriented x3, Cooperative HEENT: Atraumatic, PERRLA, EOMI, Normocephalic Neck: Supple, No JVD, Negative Carotid Bruits Lungs: Diminished, Rales - RLL Cardiovascular: Regular rate, No murmurs Abdomen: Bowel Sounds Present, Soft, Non Tender Extremities: No edema, Capillary Refill Less than 3 Seconds Skin: No rashes, No breakdown Musculoskeletal: No Tenderness to Palpation of Joints or Extremities Neurological: Cranial nerves II-XII grossly intact Psych/Mental Status: Normal Affect, Appropriate, Alert and oriented to time, place, person, mood and affect Vital Signs Temp Pulse Resp BP Pulse Ox 98.5 F 87 20 H 120/72 93 03/03/18 07:55 03/03/18 09:15 03/03/18 07:55 03/03/18 09:15 03/03/18 07:55 Oxygen Flow Rate (L/min) 2 Oxygen Delivery Method Room Air Weight: 140 lb 12.8 oz Body Mass Index (BMI) 18.6 Finger Stick Blood Glucose 109 Orthostatic Vital Signs Start: 03/03/18 10:55 Freq: q24h Status: Active Protocol: Activity Type Activity Date Activity User E-Sign Co-Sign Detail Recorded Client Recorded Date Recorded By Document 03/03/18 09:15 [facility] [id number] 03/03/18 10:56 [facility] 03/03/18 09:15 Orthostatic Vitals Standing -Blood Pressure (90/60-120/80) 72/48 L -Extremity Use Right Arm -Pulse Rate (60-100) 98 Sitting -Blood Pressure (90/60-120/80) 97/62 -Extremity Use Right Arm -Pulse Rate (60-100) 94 Lying -Blood Pressure (90/60-120/80) 120/72 -Extremity Use Right Arm -Pulse Rate (60-100) 87 Intake and Output for Last 24 Hours 03/01/18 03/02/18 03/03/18 23:59 23:59 23:59 Intake Total 650 / 650 1930 / 1930 Output Total 1100 / 1100 Balance 650 / 650 830 / 830 Microbiology Past 72 Hours 03/02/18 20:15 Legionella Antigen - Final Urine, Clean Catch 03/02/18 20:15 Streptococcus pneumoniae Antigen (M - Final Urine, Clean Catch Streptococcus pneumonia Ag Laboratory Tests Past 24 Hrs 03/02/18 03/02/18 03/02/18 13:46 13:46 13:46 WBC 12.6 H RBC 3.36 L Hgb 10.4 L Hct 32.7 L MCV 97.3 H MCH 31.0 MCHC 31.8 L RDW 13.8 RDW Differential 47.2 H Plt Count 402 MPV 9.0 Immature Gran % (Auto) 0.300 Neut % (Auto) 91.6 H Lymph % (Auto) 1.8 L [place] % (Auto) 6.1 Eos % (Auto) 0.0 Baso % (Auto) 0.2 Absolute Neuts (auto) 11.5 H Absolute Lymphs (auto) 0.23 L Total Counted Not Reportable Differential Comment SCANNED PT 13.3 INR 1.0 APTT 27.4 Sodium 136 Potassium 3.8 Chloride 101 Carbon Dioxide 28.0 Anion Gap 7 BUN 28 H Creatinine 1.82 H Estim Creat Clear Calc 36.71 Est GFR (MDRD) Af Amer 48 L Est GFR (MDRD) Non-Af 40 L BUN/Creatinine Ratio 15.4 Glucose 109 H Lactic Acid Calcium 8.8 Total Bilirubin 0.20 AST 32 ALT 66 H Alkaline Phosphatase 72 Total Protein 6.5 Albumin 2.9 L Globulin 3.6 Albumin/Globulin Ratio 0.8 L Ethyl Alcohol MRSA (PCR) 03/02/18 03/02/18 03/02/18 13:46 13:46 18:20 WBC RBC Hgb Hct MCV MCH MCHC RDW RDW Differential Plt Count MPV Immature Gran % (Auto) Neut % (Auto) Lymph % (Auto) [place] % (Auto) Eos % (Auto) Baso % (Auto) Absolute Neuts (auto) Absolute Lymphs (auto) Total Counted Differential Comment PT INR APTT Sodium Potassium Chloride Carbon Dioxide Anion Gap BUN Creatinine Estim Creat Clear Calc Est GFR (MDRD) Af Amer Est GFR (MDRD) Non-Af BUN/Creatinine Ratio Glucose Lactic Acid 1.9 Calcium Total Bilirubin AST ALT Alkaline Phosphatase Total Protein Albumin Globulin Albumin/Globulin Ratio Ethyl Alcohol 5.0 MRSA (PCR) Negative 03/03/18 03/03/18 05:28 05:28 WBC 15.7 H RBC 3.12 L Hgb 9.8 L Hct 29.9 L MCV 95.8 H MCH 31.4 MCHC 32.8 RDW 14.1 RDW Differential 47.2 H Plt Count 345 MPV 8.6 Immature Gran % (Auto) 0.600 Neut % (Auto) 89.3 H Lymph % (Auto) 4.4 L [place] % (Auto) 5.4 Eos % (Auto) 0.1 Baso % (Auto) 0.2 Absolute Neuts (auto) 14.0 H Absolute Lymphs (auto) 0.69 L Total Counted Not Reportable Differential Comment PT INR APTT Sodium 138 Potassium 3.6 Chloride 102 Carbon Dioxide 29.0 Anion Gap 7 BUN 26 H Creatinine 1.16 Estim Creat Clear Calc 56.59 Est GFR (MDRD) Af Amer 81 Est GFR (MDRD) Non-Af 67 BUN/Creatinine Ratio 22.4 H Glucose 116 H Lactic Acid Calcium 8.4 L Total Bilirubin AST ALT Alkaline Phosphatase Total Protein Albumin Globulin Albumin/Globulin Ratio Ethyl Alcohol MRSA (PCR) Medical Necessity - Tobacco Use Smoking Status: Former smoker Tobacco Use: Cigarettes Assessment/Plan All Active Problems PNA (pneumonia) (Acute) CVA (cerebral infarction) (Acute) 1. Acute sepsis 2/2 RLL aspiration vs HCAP - + strep. Change to unasyn. Follow final cultures. Overall improved. WBC increased. Recheck in AM. Presumed aspiration as well as strep/HCAP. 2. Dysphagia - speech eval. Pt noncompliant with thickened liquids at home. 3. Hx MDS, prior bone marrow transplant 2002. Mild anemia, mildly macrocytic. 4. Hx alcoholism - detox'd 2 weeks ago, states he no longer drinks. CIWA scale added. Alcohol level 5.0. On naltrexone. 5. MICKI 2/2 sepsis - resolved. 6. Anxiety/Depression - home meds 7. HLD - statin 8. Orthostatic hypotension - continue IV fluids. Continue florinef. DVT ppx: heparin DC planning: PTOT, recently in hospital for falls This patient was seen by Barry Ryan PA-C under the supervision of Doctor Rony.
[2018-03-03] MEDS: 0.9% NaCl Peripheral Flush Adult/Peds IV ×2 (14:35→22:17)
[2018-03-03] MEDS: 0.9% Normal Saline 1,000 ML 100 ML IV (19:26)
[2018-03-03] MEDS: Atorvastatin Calcium 10 MG Tablet PO (22:17)
[2018-03-03] MEDS: traZODone 50 MG Tablet PO (22:19)
[2018-03-04] VITALS (9 sets, daily range): BP systolic 99–145; BP diastolic 69–97; PULSE 88–108; RESP 16–20; TEMP 36.3–38.4; O2SAT 91–96
[2018-03-04 06:28] LABS: Absolute Lymphocyte Count 0.81 X10^3/ul (0.83-4.51); Absolute Neutrophil Count 9.4 X10^3/uL (2.0-7.7); Basophil# 0.03 X10^3/uL; Basophil% 0.3 % (0-1); Eosinophil# 0.14 X10^3/uL; Eosinophils% 1.3 % (0-5); Hematocrit 29.1 % (40-54); Hemoglobin 9.3 g/dl (13.0-16.5); Lymphocyte # 0.81 X10^3/ul (4.0); Lymphocyte % 7.4 % (19-41); Mean Platelet Vol. 8.7 fl (6.2-12.0); Monocyte% 4.6 % (0-10); Neutrophil # 9.44 X10^3/uL (2.7-7.7); Neutrophil % 86.2 % (47-70); Platelet Count 367 K/mm3 (150-450); RBC Distribution Width CV 14.1 % (11.6-14.6); RBC Distribution Width SD 47.8 fl (35.1-43.9); White Blood Count 10.9 K/mm3 (4.4-11.0)
[2018-03-04 06:33] LABS: POSITIVE COUNT NO; POSITIVE DIFFERENTIAL NO; POSITIVE MORPHOLOGY NO
[2018-03-04 06:41] LABS: Anion Gap 7 (5-15); BUN 16 mg/dL (7-18); BUN/Creat Ratio 19.3 RATIO (10-20); Calcium,Total 8.2 mg/dL (8.5-10.1); Chloride 102 mmol/L (98-107); Creatinine, Serum 0.83 mg/dL (0.70-1.30); EST Glomerular Filtration Rate 98 mL/min (>60); Est Glom Filt Rate - Afr Amer 119 mL/min (>60); Estimated Creatinine Clearance 79.08 ml/min; Glucose 98 mg/dL (74-106); Potassium 2.8 mmol/L (3.5-5.1); Sodium Level 139 mmol/L (136-145)
[2018-03-04] MEDS: Ipratropium/Albuterol Sulfate 3 ML AMPUL.NEB INHALATION ×3 (07:19→18:55)
[2018-03-04] MEDS: Acetaminophen 325 MG Tablet 650 MG PO (07:52)
[2018-03-04] MEDS: Aspirin 81 MG TAB.CHEW PO (08:48)
[2018-03-04] MEDS: Fludrocortisone Acetate 0.1 MG Tablet PO (08:49)
[2018-03-04] MEDS: Heparin Injection (Vial) 5,000 UNIT/ML VIAL 5000 UNIT SC (08:49)
[2018-03-04] MEDS: Escitalopram Oxalate 10 MG Tablet PO (08:49)
[2018-03-04] MEDS: NALTREXONE HCL 50 MG TABLET PO (08:51)
[2018-03-04] MEDS: 0.9% Normal Saline 1,000 ML 100 ML IV (09:12)
--- NOTE | 2018-03-04 10:26 | CASEMGMT ---
POA and LW forms were in echart, is listed as POA. SW printed and placed in paper chart so they can be scanned into summary section of echart. TESSA Goetz, PICK UP ATTENDANT
[2018-03-04 12:10] LABS: Potassium 3.6 mmol/L (3.5-5.1)
[2018-03-04] MEDS: Piperacil/Tazobactam 3.375 GM/50 ML ML IV ×2 (13:39→20:56)
--- NOTE | 2018-03-04 14:28 | PCM.PROGNOTE ---
Patient Problems: Active and Suspected Problems PNA (pneumonia) (Acute) Subjective: Overall improved. Pt refuses to follow thickened liquid diet. No fever or chills. Productive cough continues. Off O2, not SOB. - Physical Exam General: Alert, Oriented x3, Cooperative HEENT: Atraumatic, PERRLA, EOMI, Normocephalic Neck: Supple, No JVD, Negative Carotid Bruits Lungs: Rales - RLL Cardiovascular: Regular rate, No murmurs Abdomen: Bowel Sounds Present, Soft, Non Tender Extremities: No edema, Capillary Refill Less than 3 Seconds Skin: No rashes, No breakdown Musculoskeletal: No Tenderness to Palpation of Joints or Extremities Neurological: Cranial nerves II-XII grossly intact Psych/Mental Status: Normal Affect, Appropriate, Alert and oriented to time, place, person, mood and affect Vital Signs Temp Pulse Resp BP Pulse Ox 98.6 F 92 20 H 99/69 96 03/04/18 11:19 03/04/18 12:54 03/04/18 12:54 03/04/18 11:19 03/04/18 11:19 Oxygen Flow Rate (L/min) 2 Oxygen Delivery Method Room Air Weight: 140 lb 12.8 oz Body Mass Index (BMI) 18.6 Finger Stick Blood Glucose 109 Orthostatic Vital Signs Start: 03/03/18 10:55 Freq: q24h Status: Active Protocol: Activity Type Activity Date Activity User E-Sign Co-Sign Detail Recorded Client Recorded Date Recorded By Document 03/03/18 09:15 [facility] [id number] 03/03/18 10:56 [facility] 03/03/18 09:15 Orthostatic Vitals Standing -Blood Pressure (90/60-120/80) 72/48 L -Extremity Use Right Arm -Pulse Rate (60-100) 98 Sitting -Blood Pressure (90/60-120/80) 97/62 -Extremity Use Right Arm -Pulse Rate (60-100) 94 Lying -Blood Pressure (90/60-120/80) 120/72 -Extremity Use Right Arm -Pulse Rate (60-100) 87 Intake and Output for Last 24 Hours 03/02/18 03/03/18 03/04/18 23:59 23:59 23:59 Intake Total 650 / 650 4873 / 4873 682 / 682 Output Total 1575 / 1575 Balance 650 / 650 3298 / 3298 682 / 682 Microbiology Past 72 Hours 03/02/18 15:09 Blood Culture - Preliminary Blood Culture (Wb) - Left Forearm No growth in 48 hours. 03/02/18 13:46 Blood Culture - Preliminary Blood Culture (Wb) - Right Forearm No growth in 48 hours. 03/02/18 20:15 Gram Stain - Final Sputum, Expectorated/Coughed Respiratory Culture - Preliminary Gram negative chuck 03/02/18 20:15 Legionella Antigen - Final Urine, Clean Catch 03/02/18 20:15 Streptococcus pneumoniae Antigen (M - Final Urine, Clean Catch Streptococcus pneumonia Ag Laboratory Tests Past 24 Hrs 03/04/18 03/04/18 03/04/18 05:46 05:46 11:57 WBC 10.9 RBC 3.00 L Hgb 9.3 L Hct 29.1 L MCV 97.0 H MCH 31.0 MCHC 32.0 RDW 14.1 RDW Differential 47.8 H Plt Count 367 MPV 8.7 Immature Gran % (Auto) 0.200 Neut % (Auto) 86.2 H Lymph % (Auto) 7.4 L [place] % (Auto) 4.6 Eos % (Auto) 1.3 Baso % (Auto) 0.3 Absolute Neuts (auto) 9.4 H Absolute Lymphs (auto) 0.81 L Total Counted Not Reportable Sodium 139 Potassium 2.8 L 3.6 Chloride 102 Carbon Dioxide 30.0 Anion Gap 7 BUN 16 Creatinine 0.83 Estim Creat Clear Calc 79.08 Est GFR (MDRD) Af Amer 119 Est GFR (MDRD) Non-Af 98 BUN/Creatinine Ratio 19.3 Glucose 98 Calcium 8.2 L Medical Necessity - Tobacco Use Smoking Status: Former smoker Tobacco Use: Cigarettes Assessment/Plan All Active Problems PNA (pneumonia) (Acute) CVA (cerebral infarction) (Acute) 1. Acute sepsis 2/2 RLL aspiration vs HCAP - + strep. Culture is showing pseudomonas. Restart Zosyn. Final C&S should be back tomorrow per micro. Overall improved. Pt refuses to follow thickened liquid diet. 2. Dysphagia - continue speech therapy. Pt refuses to thicken liquids. 3. Hx MDS, prior bone marrow transplant 2002. Mild anemia, mildly macrocytic. 4. Hx alcoholism - detox'd 2 weeks ago, states he no longer drinks. CIWA scale added. Alcohol level 5.0. Continue naltrexone. 5. MICKI 2/2 sepsis - resolved. 6. Anxiety/Depression - home meds 7. HLD - statin 8. Orthostatic hypotension - Continue florinef. Recheck in AM 9. Hypokalemia resolved. DVT ppx: heparin DC planning: PTOT, recently in hospital for falls This patient was seen by Barry Ryan PA-C under the supervision of Doctor Rony.
--- NOTE | 2018-03-04 19:02 | NURSING ---
reviewed and agree with charting by Sandra Hdz, RN
[2018-03-04] MEDS: Atorvastatin Calcium 10 MG Tablet PO (20:56)
[2018-03-04] MEDS: traZODone 50 MG Tablet PO (20:57)
[2018-03-05 02:00] VITALS: BP 144/95; PULSE 89; RESP 16; TEMP 37.1; O2SAT 94
[2018-03-05] MEDS: Piperacil/Tazobactam 3.375 GM/50 ML ML IV (05:25)
[2018-03-05] MEDS: Enoxaparin 40 MG/0.4 ML Syringe SC (05:26)
[2018-03-05 06:50] VITALS: PULSE 85; RESP 18; O2SAT 92
[2018-03-05] MEDS: Ipratropium/Albuterol Sulfate 3 ML AMPUL.NEB INHALATION ×2 (06:50→13:26)
[2018-03-05 08:00] VITALS: BP 106/71; PULSE 79; RESP 16; TEMP 36.2; O2SAT 94
[2018-03-05] MEDS: Aspirin 81 MG TAB.CHEW PO (08:27)
--- NOTE | 2018-03-05 08:52 | PCM.PN.HOSP ---
Patient Problems: Active and Suspected Problems PNA (pneumonia) (Acute) Subjective: Patient was seen and examined. He feels well. Denies fever, chills, SOB, chest pain. Vitals/I&O's: Vital Signs Temp Pulse Resp BP Pulse Ox 98.7 F 85 18 144/95 H 92 03/05/18 02:00 03/05/18 06:50 03/05/18 06:50 03/05/18 02:00 03/05/18 06:50 Oxygen Flow Rate (L/min) 2 Oxygen Delivery Method Room Air Weight: 63.866 kg Body Mass Index (BMI) 18.6 Finger Stick Blood Glucose 109 Orthostatic Vital Signs Start: 03/03/18 10:55 Freq: q24h Status: Active Protocol: Activity Type Activity Date Activity User E-Sign Co-Sign Detail Recorded Client Recorded Date Recorded By Document 03/03/18 09:15 [facility] [id number] 03/03/18 10:56 [facility] 03/03/18 09:15 Orthostatic Vitals Standing -Blood Pressure (90/60-120/80) 72/48 L -Extremity Use Right Arm -Pulse Rate (60-100) 98 Sitting -Blood Pressure (90/60-120/80) 97/62 -Extremity Use Right Arm -Pulse Rate (60-100) 94 Lying -Blood Pressure (90/60-120/80) 120/72 -Extremity Use Right Arm -Pulse Rate (60-100) 87 Intake and Output for Last 24 Hours 03/03/18 03/04/18 03/05/18 23:59 23:59 23:59 Intake Total 4873 / 4873 2792 / 2792 763 / 763 Output Total 1575 / 1575 Balance 3298 / 3298 2792 / 2792 763 / 763 General: Alert, Oriented x3, Cooperative, No apparent distress HEENT: Atraumatic, PERRLA, EOMI, Normocephalic Oral: Moist Mucosa Neck: Supple, No JVD, Negative Carotid Bruits Lungs: Clear to auscultation, Normal air movement, Diminished - at lung bases Cardiovascular: Regular rate, No murmurs Abdomen: Bowel Sounds Present, Soft, Non Tender Extremities: No edema, Capillary Refill Less than 3 Seconds Skin: No rashes, No breakdown Musculoskeletal: No Tenderness to Palpation of Joints or Extremities Lymphatic: No Cervical, Supraclavicular, or Inguinal Adenopathy Neurological: Cranial nerves II-XII grossly intact Psych/Mental Status: Normal Affect, Appropriate Microbiology Past 72 Hours 03/02/18 20:15 Sputum, Expectorated/Coughed Gram Stain - Final 03/02/18 20:15 Sputum, Expectorated/Coughed Respiratory Culture - Final Burkholderia cepacia 03/02/18 15:09 Blood Culture (Wb) - Left Forearm Blood Culture - Preliminary No growth in 48 hours. 03/02/18 13:46 Blood Culture (Wb) - Right Forearm Blood Culture - Preliminary No growth in 48 hours. 03/02/18 20:15 Urine, Clean Catch Legionella Antigen - Final 03/02/18 20:15 Urine, Clean Catch Streptococcus pneumoniae Antigen (M - Final Streptococcus pneumonia Ag Laboratory Results 03/04/18 11:57: Potassium 3.6 Current Medications Acetaminophen (Tylenol) 650 mg PO Q6H PRN PRN PRN Reason: PAIN Last Admin: 03/04/18 07:52 Dose: 650 mg Albuterol Sulfate (Ventolin Aerosols) 2.5 mg INHALATION Q2H PRN PRN PRN Reason: dyspnea,wheezing Albuterol/Ipratropium (Duoneb) 3 ml INHALATION Q6HWA.RT [facility] Last Admin: 03/05/18 06:50 Dose: 3 ml Aspirin (Aspirin, Baby) 81 mg PO DAILY@0800 [facility] Last Admin: 03/05/18 08:27 Dose: 81 mg Atorvastatin Calcium (Lipitor) 10 mg PO QHS [facility] Last Admin: 03/04/18 20:56 Dose: 10 mg Enoxaparin Sodium (Lovenox) 40 mg SC DAILY@0600 [facility] Last Admin: 03/05/18 05:26 Dose: 40 mg Escitalopram Oxalate (Lexapro) 10 mg PO DAILY [facility] Last Admin: 03/04/18 08:49 Dose: 10 mg Fludrocortisone Acetate (Florinef) 0.1 mg PO DAILY [facility] Last Admin: 03/04/18 08:49 Dose: 0.1 mg Piperacillin Sod/Tazobactam Sod (Zosyn) 3.375 gm in 50 mls @ 12.5 mls/hr IV Q8 [facility] Last Admin: 03/05/18 05:25 Dose: 12.5 mls/hr Magnesium Hydroxide (Milk Of Magnesia) 30 ml PO DAILY PRN PRN PRN Reason: Constipation Naltrexone HCl (Naltrexone Hcl) 50 mg PO DAILY [facility] Last Admin: 03/04/18 08:51 Dose: 50 mg Nutritional Formula (Lactose Free) (Ensure Enlive) 120 ml PO 4X/DAY [facility] Last Admin: 03/04/18 20:55 Dose: 120 ml Ondansetron HCl (Zofran) 4 mg IV Q8H PRN PRN PRN Reason: NAUSEA/VOMITING Sodium Chloride () 5 - 30 ml IV UD PRN PRN Reason: SALINE FLUSH Last Admin: 03/03/18 22:17 Dose: 30 ml Trazodone HCl (Desyrel) 50 mg PO DAILY [facility] Last Admin: 03/04/18 20:57 Dose: 50 mg Medical Necessity - Tobacco Use Smoking Status: Former smoker Tobacco Use: Cigarettes Assessment/Plan All Active Problems PNA (pneumonia) (Acute) CVA (cerebral infarction) (Acute) 7-year-old male with past medical history of alcohol use disorder status post recent fall, recent acute alcohol withdrawal with rib contusion, history of MDS, anxiety/depression, protein calorie malnutrition, chronic oropharyngeal dysphagia who was admitted with weakness and cough. 1. Sepsis secondary to acute streptococcal pneumonia, possible aspiration pneumonia, sputum cultures grew Burkholderia, managed on IV Zosyn No fevers, appears improved, will switch to Levaquin and augmentin for a total of 10 days. 2. 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 3. MICKI secondary to dehydration, POA, resolved 4. Chronic oropharyngeal dysphagia with chronic aspiration, speech therapy consulted, patient refused thickened liquids, 5. Hypokalemia, resolved 6. History of orthostatic hypotension, status post IV fluids, on Florinef, will recheck today. 7. Chronic Alcohol dependency, advised to quit, continue on home naltrexone 8. MDS, s/p bone marrow transplant 9. Hyperlipidemia, on statin 10. Severe protein energy malnutrition 11. DVT prophylaxis - Heparin SC Code Visit Inpatient E&M: 76152 Subs Hosp L2
[2018-03-05 10:00] VITALS: BP 137/87; BP 89/66; BP 91/72; PULSE 85; PULSE 92; PULSE 94; RESP 16
[2018-03-05] MEDS: Fludrocortisone Acetate 0.1 MG Tablet PO (10:19)
[2018-03-05] MEDS: NALTREXONE HCL 50 MG TABLET PO (10:20)
[2018-03-05] MEDS: Escitalopram Oxalate 10 MG Tablet PO (10:21)
--- NOTE | 2018-03-05 10:43 | DCINST_ITS ---
- Discharge Diagnoses Current Active Problems: Current Active and Chronic Problems Dysphagia (Chronic) PNA (pneumonia) (Acute) Reason(s) for Visit for Discharge Instructions: Cough, weakness You will use the following diet at home:: Regular Your food should be the consistency of: Puree Your liquids should be the consistency of: [place] Thick Discharge Activity: Return to Normal Activity Allergies/Adverse Reactions: Allergies PANTANODINE Allergy (Uncoded 02/15/18 16:30) Unknown Medications to take at Discharge Albuterol Inhaler [Ventolin Hfa] 1 puff INHALATION PRN PRN 04/17/14 Simvastatin [Zocor] 20 mg PO QHS 04/17/14 traZODone [Desyrel] 50 mg PO DAILY 04/17/14 Aspirin [Aspirin, Baby] 81 mg PO DAILY@0800 08/08/17 Escitalopram Oxalate [Lexapro] 10 mg PO DAILY 08/08/17 Cinnamon Bark [Cinnamon] 1,000 mg PO BID 03/02/18 Fludrocortisone Acetate [Florinef] 0.1 mg PO DAILY 03/02/18 Garlic 1,000 mg PO DAILY 03/02/18 Multivit-Min/FA/Herbal No.245 [Alive Women's Gummy Vitamins] 1 each PO DAILY 03/02/18 Naltrexone HCl 50 mg PO DAILY 03/02/18 Umeclidinium Brm/Vilanterol Tr [Anoro Ellipta 62.5-25 Mcg INH] 1 inh INHALATION DAILY 03/02/18 Amox/Clavulanate Tablet [Augmentin Tablet] 875 mg PO Q12H #12 tablet 03/05/18 Ensure Enlive 120 ml PO 4X/DAY #100 liquid 03/05/18 levoFLOXacin tablet [Levaquin tablet] 750 mg PO DAILY #6 tablet 03/05/18 The following prescriptions were given: Amox/Clavulanate Tablet [Augmentin Tablet] 875 mg PO Q12H #12 tablet levoFLOXacin tablet [Levaquin tablet] 750 mg PO DAILY #6 tablet Ensure Enlive 120 ml PO 4X/DAY #100 liquid Orders to be completed after discharge: Basic Metabolic Profile (BMP) Time Frame: 3 Days, Location: Laboratory CBC W/Diff, Automated Time Frame: 3 Days, Location: Laboratory Primary Care Physician: Marck Lee MD [NON-STAFF] - Please follow up with your Primary Care Physician in: within 1-2 weeks Test Results: Test results from this visit will be discussed in further detail at your follow- up appointment, if applicable. Proposed Discharge Date: 03/05/18
--- NOTE | 2018-03-05 10:47 | DS.PCM_ITS ---
Discharge Date and Diagnosis - Problem List Patient Problems: Active and Suspected Problems PNA (pneumonia) (Acute) Date of Admission: 03/02/18 Date of Discharge: 03/05/18 - Primary Discharge Diagnosis Active and Suspected Problems Sepsis secondary to streptococcal PNA (pneumonia) (Acute), HCAP Possible aspiration pneumonia Hypokalemia MICKI Severe Protein energy malnutrition - Secondary Discharge Diagnosis Chronic Problems Dysphagia (Chronic) Hypertension (Chronic) COPD (chronic obstructive pulmonary disease) (Chronic) Hyperlipidemia (Chronic) Alcohol abuse (Chronic) Anxiety and depression (Chronic) Myelodysplasia (Chronic) Hospital Course and Treatment Imaging Results: Clinical Impression(s) from Imaging Studies Chest X-Ray 03/02/18 14:57 IMPRESSION: Persistent ill-defined airspace opacities at the left medial lung base, associated with new stifled calcifications of the left lung base that were not present on the study of 08/08/2017. These features likely represent sequela of prior pneumonia. A previous aspiration pneumonia was reported. Persistent pneumonia cannot entirely excluded given the persistent ill-defined airspace opacities. Consider follow-up CT chest for more complete characterization. Electronically Signed: Art Meza, at 15:30 EDT Tel , Service support , None Operations: None Procedures: None Summary of Care Provided: The patient is a 67 year old M with past medical history of chronic oral pharyngea dysphagia, history of aspiration pneumonia, alcoholism, recently admitted after a fall in with acute alcohol withdrawal symptoms in OSH. Patient presented with fever, cough with yellowish sputum production. His admitting chest x-ray showed a persistently ill-defined airspace opacity at the left medial lung base, with new start with calcification of the left lung base . He was managed as acute sepsis secondary to streptococcal pneumonia, possible aspiration pneumonia. Blood cultures were negative. Sputum cultures grew Burkholderia cepacia. Was managed on IV Zosyn. His therapy was consulted, recommended patient to have thickened liquids but patient refused. He continued to improve, did not require oxygen on ambulation at discharge. He was discharged on Levaquin and Augmentin to complete 10 days total antibiotics. He would repeat his blood work in the outpatient within a week and follow-up with his primary doctor in 1-2 weeks. Patient Problems: Active and Suspected Problems PNA (pneumonia) (Acute) Subjective: Patient was seen and examined on the day of discharge. No new complaints. Ambulated without increased oxygen requirement. Objective: General: Alert, Oriented x3, Cooperative, No apparent distress HEENT: Atraumatic, PERRLA, EOMI, Normocephalic Oral: Moist Mucosa Neck: Supple, No JVD, Negative Carotid Bruits Lungs: Clear to auscultation, Normal air movement, Diminished - at lung bases Cardiovascular: Regular rate, No murmurs Abdomen: Bowel Sounds Present, Soft, Non Tender Extremities: No edema, Capillary Refill Less than 3 Seconds Skin: No rashes, No breakdown Musculoskeletal: No Tenderness to Palpation of Joints or Extremities Lymphatic: No Cervical, Supraclavicular, or Inguinal Adenopathy Neurological: Cranial nerves II-XII grossly intact Psych/Mental Status: Normal Affect, Appropriate - Physical Exam Vital Signs Temp Pulse Resp BP Pulse Ox 97.1 F L 79 16 106/71 94 03/05/18 08:00 03/05/18 08:00 03/05/18 08:00 03/05/18 08:00 03/05/18 08:00 Oxygen Flow Rate (L/min) 2 Oxygen Delivery Method Room Air Weight: 63.866 kg Body Mass Index (BMI) 18.6 Finger Stick Blood Glucose 109 Orthostatic Vital Signs Start: 03/03/18 10:55 Freq: q24h Status: Active Protocol: Activity Type Activity Date Activity User E-Sign Co-Sign Detail Recorded Client Recorded Date Recorded By Document 03/03/18 09:15 [facility] [id number] 03/03/18 10:56 [facility] 03/03/18 09:15 Orthostatic Vitals Standing -Blood Pressure (90/60-120/80) 72/48 L -Extremity Use Right Arm -Pulse Rate (60-100) 98 Sitting -Blood Pressure (90/60-120/80) 97/62 -Extremity Use Right Arm -Pulse Rate (60-100) 94 Lying -Blood Pressure (90/60-120/80) 120/72 -Extremity Use Right Arm -Pulse Rate (60-100) 87 Intake and Output for Last 24 Hours 03/03/18 03/04/18 03/05/18 23:59 23:59 23:59 Intake Total 4873 / 4873 2792 / 2792 763 / 763 Output Total 1575 / 1575 Balance 3298 / 3298 2792 / 2792 763 / 763 Microbiology Past 72 Hours 03/02/18 20:15 Gram Stain - Final Sputum, Expectorated/Coughed Respiratory Culture - Final Burkholderia cepacia 03/02/18 15:09 Blood Culture - Preliminary Blood Culture (Wb) - Left Forearm No growth in 48 hours. 03/02/18 13:46 Blood Culture - Preliminary Blood Culture (Wb) - Right Forearm No growth in 48 hours. 03/02/18 20:15 Legionella Antigen - Final Urine, Clean Catch 03/02/18 20:15 Streptococcus pneumoniae Antigen (M - Final Urine, Clean Catch Streptococcus pneumonia Ag Laboratory Tests Past 24 Hrs 03/04/18 11:57 Potassium 3.6 Discharge Diet: No Restrictions, Swallowing Precautions Discharge Activity: Return to Normal Activity Home Medications: Medications to take at Discharge Albuterol Inhaler [Ventolin Hfa] 1 puff INHALATION PRN PRN 04/17/14 Simvastatin [Zocor] 20 mg PO QHS 04/17/14 traZODone [Desyrel] 50 mg PO DAILY 04/17/14 Aspirin [Aspirin, Baby] 81 mg PO DAILY@0800 08/08/17 Escitalopram Oxalate [Lexapro] 10 mg PO DAILY 08/08/17 Cinnamon Bark [Cinnamon] 1,000 mg PO BID 03/02/18 Fludrocortisone Acetate [Florinef] 0.1 mg PO DAILY 03/02/18 Garlic 1,000 mg PO DAILY 03/02/18 Multivit-Min/FA/Herbal No.245 [Alive Women's Gummy Vitamins] 1 each PO DAILY 03/02/18 Naltrexone HCl 50 mg PO DAILY 03/02/18 Umeclidinium Brm/Vilanterol Tr [Anoro Ellipta 62.5-25 Mcg INH] 1 inh INHALATION DAILY 03/02/18 Amox/Clavulanate Tablet [Augmentin Tablet] 875 mg PO Q12H #12 tablet 03/05/18 Ensure Enlive 120 ml PO 4X/DAY #100 liquid 03/05/18 levoFLOXacin tablet [Levaquin tablet] 750 mg PO DAILY #6 tablet 03/05/18 Following Prescrptions Were Given to Patient: Amox/Clavulanate Tablet [Augmentin Tablet] 875 mg PO Q12H #12 tablet levoFLOXacin tablet [Levaquin tablet] 750 mg PO DAILY #6 tablet Ensure Enlive 120 ml PO 4X/DAY #100 liquid Other Amb Orders: Basic Metabolic Profile (BMP) Time Frame: 3 Days, Location: Laboratory CBC W/Diff, Automated Time Frame: 3 Days, Location: Laboratory Primary Care Physician: Marck Lee MD [NON-STAFF] - Please follow up with your Primary Care Physician in: within 1-2 weeks Disposition: Home Minutes spent on discharge:: 40 Patient Condition:: Stable Medical Necessity - Tobacco Use Smoking Status: Former smoker Tobacco Use: Cigarettes Meaningful Use Info Meaningful Use Diagnoses (Choose all that apply): None applicable Code Visit Inpatient E&M: 38084 Disch Hosp
[2018-03-05] MEDS: levoFLOXacin 750 MG Tablet PO (11:20)
[2018-03-05 13:26] VITALS: PULSE 88; RESP 16
[2018-03-05 14:32] VITALS: BP 121/73; PULSE 98; RESP 18; TEMP 36.2; O2SAT 96
--- NOTE | 2018-03-05 15:44 | NURSING ---
Pt is given telephone call and notified that he needs to have lab work in one week from today at [facility] lab. Orders were tubed to lab.
--- NOTE | 2018-03-06 13:03 | CASEMGMT ---
IVY TIJERINA DC Phone Call DC Date: 03/06/18 CHERI 4 DC Disposition: Home Intro role of CM to patient. he states he is doing well, no concerns. Asked re: f/u labwork. Explained to patient along with taking antibiotic until finished. No further questions. Yuan ARGUETAN RN ACM
== END 2018-03-05 14:25 | disposition home or self-care (01) | DRG 871 ==
LOC: ED 16:57 → MS2 17:08
PROVIDERS: Physician Assistant; Admitting Provider Family Medicine; Emergency Provider Emergency Medicine; Family Provider Physician Assistant; PCP Physician Assistant; Referring Provider Family Medicine; Visit Provider Internal Medicine
DX: A40.9 Streptococcal sepsis, unspecified (principal); J15.4 Pneumonia due to other streptococci; E43 Unspecified severe protein-calorie malnutrition; J69.0 Pneumonitis due to inhalation of food and vomit; Z94.81 Bone marrow transplant status; N17.9 Acute kidney failure, unspecified; Z68.1 Body mass index [BMI] 19.9 or less, adult; E87.6 Hypokalemia; Y95 Nosocomial condition; J44.9 Chronic obstructive pulmonary disease, unspecified; D46.9 Myelodysplastic syndrome, unspecified; F41.9 Anxiety disorder, unspecified; F32.9 Major depressive disorder, single episode, unspecified; E78.5 Hyperlipidemia, unspecified; I10 Essential (primary) hypertension; R13.12 Dysphagia, oropharyngeal phase; Z87.891 Personal history of nicotine dependence; F10.10 Alcohol abuse, uncomplicated
CPT/HCPCS: 36415; 71045; 80048; 80053; 80320; 83605; 84132; 85025; 85610; 85730; 87040; 87070; 87077; 87184; 87186; 87205; 87449; 87641; 93005; 94640; 94667; 94668; 97161; 97165; 97802; 99285; J7030; J7050; A4216; G0480; J0295

== ENCOUNTER 2018-03-22 16:02 | Inpatient (IN) | payer MEDICARE, OTHER, SELFPAY ==
[2018-03-22] VITALS (8 sets, daily range): BP systolic 95–158; BP diastolic 61–99; PULSE 62–90; RESP 18–26; TEMP 36.8–37.6; O2SAT 80–95; BMI 17.9; BMI 17.5
--- NOTE | 2018-03-22 16:21 | EKG12_ITS ---
Test Reason : SOB Blood Pressure : / mmHG Vent. Rate : 087 BPM Atrial Rate : 087 BPM P-R Int : 142 ms QRS Dur : 096 ms QT Int : 400 ms P-R-T Axes : 057 035 072 degrees QTc Int : 481 ms Normal sinus rhythm Prolonged QT Abnormal ECG Confirmed by TATE MARCUS, DARIN ([id number]), assistant editor GIANNA SINGLETARY ([id number]) on 03/24/2018 10:28:45 AM Referred By: Kristen Uribe Confirmed By:DARIN YBARRA MD
[2018-03-22 16:32] LABS: Absolute Lymphocyte Count 0.82 X10^3/ul (0.83-4.51); Absolute Neutrophil Count 5.2 X10^3/uL (2.0-7.7); Basophil# 0.01 X10^3/uL; Basophil% 0.1 % (0-1); Eosinophil# 0.07 X10^3/uL; Hematocrit 33.1 % (40-54); Hemoglobin 10.5 g/dl (13.0-16.5); Lymphocyte # 0.82 X10^3/ul (4.0); Lymphocyte % 12.2 % (19-41); Mean Corp Hgb Conc 31.7 g/gl (32-36); Mean Corpuscular Hgb 29.8 pg (27.0-32.0); Mean Platelet Vol. 8.8 fl (6.2-12.0); Monocyte# 0.62 X10^3/uL; Monocyte% 9.2 % (0-10); Neutrophil # 5.18 X10^3/uL (2.7-7.7); Neutrophil % 77.4 % (47-70); Platelet Count 223 K/mm3 (150-450); RBC Distribution Width SD 44.8 fl (35.1-43.9); Red Blood Count 3.52 M/mm3 (4.6-6.2); White Blood Count 6.7 K/mm3 (4.4-11.0)
--- NOTE | 2018-03-22 16:33 | RAD_ITS ---
STUDY: X-RAY CHEST REASON FOR EXAM: Male, 67 years old. SOB, low oxygen levels. TECHNIQUE: Portable chest. COMPARISON: 03/02/2018. FINDINGS: There is no pleural effusion. There are numerous radiopacities in the right lung base, most consistent with aspiration of oral contrast medium. This is new compared to the study of 08/08/2017. There is no evidence of pulmonary consolidation. Postsurgical changes are noted in the right lung. Normal size heart. Normal mediastinum and musa. Normal visualized pulmonary arteries. Normal visualized aortic arch and descending thoracic aorta. There is no demonstrated abnormality of the visualized soft tissue structures of the upper abdomen. There are acute fractures of the left lateral seventh and eighth ribs, with probable fractures of the left anterolateral ninth and 10th ribs. RAD/Chest 1 View (Portable) IMPRESSION: 1. Acute left rib fractures. No pneumothorax. 2. Evidence of prior aspiration of contrast media in the right lung base. Electronically Signed: Tammy Osborn MD at 17:12 EDT Tel , Service support ,
[2018-03-22 16:34] LABS: POSITIVE COUNT NO; POSITIVE DIFFERENTIAL NO; POSITIVE MORPHOLOGY NO
[2018-03-22 16:38] LABS: Prothrombin Time (Protime)PT. 13.2 SECONDS (11.7-14.9)
[2018-03-22 16:39] LABS: Partial Thromboplast Time 30.6 Seconds (24.1-36.2)
[2018-03-22 16:46] LABS: ALB/GLOB Ratio 0.6 RATIO (0.9-2.4); AST(SGOT) 29 U/L (15-37); Alanine Aminotransfer ALT/SGPT 35 U/L (16-61); Albumin, Serum 2.6 g/dL (3.2-5.0); Alkaline Phosphatase 58 U/L (45-117); Anion Gap 10 (5-15); BUN 18 mg/dL (7-18); BUN/Creat Ratio 17.5 RATIO (10-20); Calcium,Total 8.9 mg/dL (8.5-10.1); Chloride 100 mmol/L (98-107); Creatinine, Serum 1.03 mg/dL (0.70-1.30); EST Glomerular Filtration Rate 77 mL/min (>60); Est Glom Filt Rate - Afr Amer 93 mL/min (>60); Estimated Creatinine Clearance 61.56 ml/min; Globulin 4.2 g/dL (2.2-4.2); Glucose 92 mg/dL (74-106); Potassium 3.4 mmol/L (3.5-5.1); Protein, Total 6.8 g/dL (6.4-8.2); Sodium Level 140 mmol/L (136-145)
--- NOTE | 2018-03-22 16:59 | CT_ITS ---
STUDY: CTA CHEST REASON FOR EXAM: Male, 67 years old. Hypoxia, SOB. Cough. RADIATION DOSAGE (If Supplied By Facility): CTDIvol = ( 7.81 ) mGy, DLP = ( 295.85 ) mGycm TECHNIQUE: The examination was performed with the intravenous administration of 75 ml of Isovue 370 contrast material. Post-processing of the angiographic images was performed, with multiplanar reformation and 3D reconstruction. Individualized dose optimization techniques were used for this CT. COMPARISON: Chest x-ray 03/22/2018, 03/02/2018. FINDINGS: The heart and pericardium are normal. The ascending aorta is aneurysmal measuring 4.1 cm. The arch and descending thoracic aorta are normal in caliber. There is no dissection. There is no mediastinal mass or adenopathy. There is no hilar or axillary adenopathy. There is no evidence of pulmonary embolus. Pulmonary arteries are unremarkable. There is no pleural effusion. Consolidation in the left lower lobe is consistent with pneumonia. Fibroatelectatic changes are considered less likely. Innumerable hypodense foci are again noted in the periphery of the right lower lobe. This is suspicious for aspirated contrast. There is trace atelectasis in the right lung base. Visualized abdomen is unremarkable. Nondisplaced healing fractures of the left lateral seventh and eighth ribs are noted. Healing, mildly displaced fractures of the left lateral ninth and 10th ribs are noted. CT/CTA Chest W/WO Contrast IMPRESSION: 1. Left lower lobe pneumonia. 2. A 4.1 cm ascending aortic aneurysm. 3. Multiple dense foci in the right lower lobe, suspicious for prior aspiration of oral contrast medium. 4. Healing left rib fractures. Electronically Signed: Tammy Osborn MD at 18:59 EDT Tel , Service support ,
[2018-03-22 17:05] LABS: Lactic Acid 1.6 mmol/L (0.4-2.0)
--- NOTE | 2018-03-22 17:42 | ED.DCSUM_ITS ---
- ER Visit Summary Date of Service: 03/22/18 Chief Complaint: Shortness of breath History of Present Illness: The patient is a 67 M presenting for evaluation secondary to shortness of breath. Patient was recently admitted to the hospital secondary to aspiration pneumonia. He was discharged on Friday. Patient has home health care coming to the house, and when they came today he noted that he had a pulse ox in the 80% range so they sent him back into the emergency department. Patient denies any sort of chest pain, does endorse that he short of breath and states that he has a cough that is productive of some yellow sputum. There is been no presence of fevers. Patient has no prior history of DVT or PE but has been rather sedentary lately. Review of systems otherwise. Physical Examination: Vital signs notable for pulse ox of 80% on room air. Cachectic male not in physiologic distress on oxygen. Head normocephalic atraumatic. Dry mucous membranes. Neck was supple. Heart regular rate and rhythm. Lungs sounds are extremely coarse and wet sounding with rales greater in the right base than the left. Abdomen was soft nontender nondistended. Peripheral edema was not present. Skin was normal color. Patient was alert and oriented without lateralizing deficits. Test Results: EKG demonstrates a prolonged QTC of [address] segments normal T waves. CBC shows mild anemia 10.5, chemistry shows a potassium 3.4, lactic acid negative. Chest x-ray shows left-sided rib fractures that were present on a prior x-ray and improving aspiration pneumonia. CT angiogram of the chest shows evidence of left lower lobe infiltrate with no ev idence of pulmonary embolus Emergency Department Course and Treatment: Patient presented for evaluation secondary to a low pulse ox in the setting of recent aspiration pneumonia and recent hospital admission. His initial chest x-ray was not very impressive to me, and actually looked improved. I had no explanation for the patient's pulse ox of 80%, so a CT angiogram was ordered. This was found to be negative for PE but did show evidence of pneumonia. Patient was placed on Unasyn. Patient will be admitted to the hospitalist. Disposition: Admission Impression: 1. Pneumonia 2. Hypoxia This note was generated with [employer] dictation software. It may contain incorrect words, spelling, and punctuation that were not noted in review of the chart prior to signing ED Disposition - Plan for ED Patient: Chief Complaint: Shortness of Breath Referrals: Sean James PA [Primary Care Provider] -
--- NOTE | 2018-03-22 19:36 | HP.PCM_ITS ---
Problem List (1) HCAP (healthcare-associated pneumonia) Status: Acute (2) Acute respiratory failure with hypoxia Status: Acute (3) Dysphagia Status: Chronic Qualifiers: Dysphagia type: oropharyngeal phase Qualified Code(s): R13.12 - Dysphagia, oropharyngeal phase (4) CVA (cerebral infarction) Status: Chronic Qualifiers: Cerebral infarction mechanism: unspecified mechanism Qualified Code(s): I63.9 - Cerebral infarction, unspecified (5) Hypertension Status: Chronic Qualifiers: Hypertension type: essential hypertension Qualified Code(s): I10 - Essential (primary) hypertension (6) COPD (chronic obstructive pulmonary disease) Status: Chronic Qualifiers: COPD type: unspecified COPD Qualified Code(s): J44.9 - Chronic obstructive pulmonary disease, unspecified (7) Hyperlipidemia Status: Chronic Qualifiers: Hyperlipidemia type: unspecified Qualified Code(s): E78.5 - Hyperlipidemia, unspecified (8) Alcohol abuse Status: Chronic (9) Anxiety and depression Status: Chronic (10) Myelodysplasia Status: Chronic History of Present Illness Date of Admission: 03/22/18 Chief Complaint: Cough, dyspnea, sputum production, hypoxia per visiting RN The patient is a 67 y/o M w/ PMHx: Hypertension, Hyperlipidemia, Chronic COPD, MDS, Depression and Anxiety, Severe Protein-Calorie Malnutrition, Chronic Dysphagia non-compliant with diet recommendations as well as EtOH usage w/ recent attempts for EtOH detoxification following fall w/ L sided rib fractures recently discharged from [facility] on 03/05/18 following treatment for sepsis secondary to streptococcal PNA, HCAP and possible aspiration pneumonia as well as MICKI discharged to home on augmentin and levaquin regimen for 6 additional days who now re-presents to the [facility] ED on 03/22/18 with desaturations noted per visiting nursing staff, recurrent dyspnea and coughing progressively worsening w/ yellow sputum production. He notes he had felt improved but upon completion of antibiotics and continued aspiration noting constant coughing w/ any liquid intake which is not the recommended nectar thickened he worsened. He denies any fever or chills. He states he has remained sober since recent discharge. Work-up in the ED included initially T 99.6, heart rate 90, BP 95/61, respiratory rate 26, 80% on room air -->T 99.4, heart rate 77, BP 130/86, respiratory rate 20, 94% on 3 L nasal cannula, CBC with WBC 6.7, hemoglobin 10.5 (baseline hemoglobin 9-10 range), platelet 223 without market left shift, unremarkable coags, CMP unremarkable aside potassium 3.4, chest x-ray with acute left rib fractures with no evidence of pneumothorax with evidence of prior aspiration of contrast media in the right lung base, chest CTPA with evidence of left lower lobe pneumonia with a 4.1 cm ascending aortic aneurysm with multiple dense foci in the right lower lobe suspicious for prior aspiration of oral contrast medium, healing left rib fractures. In the ED patient administered Unasyn. Past Medical History Past Medical History (Chronic Problems): Chronic Problems Dysphagia (Chronic) CVA (cerebral infarction) (Chronic) Hypertension (Chronic) COPD (chronic obstructive pulmonary disease) (Chronic) Hyperlipidemia (Chronic) Alcohol abuse (Chronic) Anxiety and depression (Chronic) Myelodysplasia (Chronic) Allergies PANTANODINE Allergy (Uncoded 03/22/18 16:04) Unknown Home Medications: Ambulatory Orders Medication Instructions Recorded Albuterol Inhaler [Ventolin Hfa] 1 puff INHALATION PRN PRN 04/17/14 Simvastatin [Zocor] 20 mg PO QHS 04/17/14 traZODone [Desyrel] 50 mg PO DAILY 04/17/14 Aspirin [Aspirin, Baby] 81 mg PO DAILY@0800 08/08/17 Escitalopram Oxalate [Lexapro] 20 mg PO DAILY 08/08/17 Fludrocortisone Acetate [Florinef] 0.1 mg PO DAILY 03/02/18 Garlic 1,000 mg PO DAILY 03/02/18 Multivit-Min/FA/Herbal No.245 1 each PO DAILY 03/02/18 [Alive Women's Gummy Vitamins] Umeclidinium Brm/Vilanterol Tr 1 inh INHALATION DAILY 03/02/18 [Anoro Ellipta 62.5-25 Mcg INH] Ensure Enlive 120 ml PO 4X/DAY #100 liquid 03/05/18 Gabapentin [Neurontin] mg PO TID 03/22/18 Midodrine HCl 10 mg PO TID 03/22/18 Surgical History: - - Right lung partial resection middle lobe, right inguinal hernia repair ?2, left inguinal hernia repair ?1, tonsillectomy, bone marrow transplant. Psychiatric History: Anxiety, Depression Lives: Spouse/ Significant Other Smoking Status: Former smoker Tobacco Use: Non-smoker Alcohol: Sober - Patient has been sober for nearly 1 month, prior he was drinking at least 1 pt EtOH daily. Drugs: None - *Family History Maternal History Items: Hypertension Paternal History Items: Heart Disease, Hypertension Review of Systems Constitutional: Reports: Anorexia, Malaise, Weakness, Fatigue. Denies: Chills, Fever, Weight Change HEENT: Denies: Head Aches, Sinus Congestion, Sinus Drainage Cardiovascular: Denies: Chest Pain, Palpitations Respiratory: Reports: Cough, Shortness of Breath, Shortness of breath at rest, Shortness of breath upon exertion, Sputum production Gastrointestinal: Reports: Nausea. Denies: Abdominal Pain, Vomiting Genitourinary: Denies: Dysuria Musculoskeletal: Reports: Back Pain. Denies: Joint Pain, Joint Tenderness Skin: Denies: Rash, Wounds Neurological: Denies: Numbness, Tingling, Focal weakness Psychiatric: Reports: Anxiety, Depression. Denies: Homicidal Ideations, Suicidal Ideations Hematologic/ Lymphatic: Reports: Anemia, Easy Bruising, Easy Bleeding VTE Information - Inpt Only VTE Present on Admission: No VTE Mechan Device Prophylaxis: SCD's VTE Pharm Prophylaxis ordered?: Yes Patient Problems: Active and Suspected Problems HCAP (healthcare-associated pneumonia) (Acute) Acute respiratory failure with hypoxia (Acute) Subjective: Seated upright in the ED bed, fatigued appearing, ill appearing, cachetic habitus. Objective: Physical Examination: General: awake, alert, oriented x 3 and cooperative, seated upright in the the ED bed, notes improved since initial presentation, prior had increased RR, acces divine muscle usage and increased work of breathing, notes improved w/ oxygen supplementation. Skin: normal color, turgor, no icterus, cyanosis, resolved prior ecchymoses to the right lateral face. HEENT: AT/NC, EOMI, PERRLA, dry MM, no carotid bruit or evidence JVD. Lungs: Diminished BS BL, > bases, coarse, moist, occasional wheezing, rhonchorous, improved since initial presentation, prior noted increased RR, accessory muscle usage and increased work of breathing Heart: Regular rate and rhythm; no gallop, rub audible. Abdomen: soft, cachetic, thin habitus, NTTP, ND, + HM. Extremities: no cyanosis, clubbing, or edema. Neurological: patient awake, alert, oriented x 3; cognitive function appears intact upon questioning,; pupils equally reactive to light and accomodation; cranial nerves II-XII grossly normal, moving all 4 extremities, strength severely globally decreased. Psychiatric: affect appears fatigued, flat, no acute evidence of depressive or anxiety feelings. - Physical Exam Vital Signs Temp Pulse Resp BP Pulse Ox 99.4 F H 62 20 H 130/86 H 94 03/22/18 16:34 03/22/18 18:07 03/22/18 18:07 03/22/18 18:07 03/22/18 18:07 Oxygen Flow Rate (L/min) 3 Oxygen Delivery Method Nasal Cannula Weight: 136 lb Body Mass Index (BMI) 17.9 Finger Stick Blood Glucose 109 Laboratory Tests Past 24 Hrs 03/22/18 03/22/18 03/22/18 14:15 14:15 14:15 WBC 6.7 RBC 3.52 L Hgb 10.5 L Hct 33.1 L MCV 94.0 MCH 29.8 MCHC 31.7 L RDW 13.0 RDW Differential 44.8 H Plt Count 223 MPV 8.8 Immature Gran % (Auto) 0.100 Neut % (Auto) 77.4 H Lymph % (Auto) 12.2 L [place] % (Auto) 9.2 Eos % (Auto) 1.0 Baso % (Auto) 0.1 Absolute Neuts (auto) 5.2 Absolute Lymphs (auto) 0.82 L Total Counted Not Reportable PT 13.2 INR 1.0 APTT 30.6 Sodium 140 Potassium 3.4 L Chloride 100 Carbon Dioxide 30.0 Anion Gap 10 BUN 18 Creatinine 1.03 Estim Creat Clear Calc 61.56 Est GFR (MDRD) Af Amer 93 Est GFR (MDRD) Non-Af 77 BUN/Creatinine Ratio 17.5 Glucose 92 Lactic Acid Calcium 8.9 Total Bilirubin 0.40 AST 29 ALT 35 Alkaline Phosphatase 58 Total Protein 6.8 Albumin 2.6 L Globulin 4.2 Albumin/Globulin Ratio 0.6 L 03/22/18 14:15 WBC RBC Hgb Hct MCV MCH MCHC RDW RDW Differential Plt Count MPV Immature Gran % (Auto) Neut % (Auto) Lymph % (Auto) [place] % (Auto) Eos % (Auto) Baso % (Auto) Absolute Neuts (auto) Absolute Lymphs (auto) Total Counted PT INR APTT Sodium Potassium Chloride Carbon Dioxide Anion Gap BUN Creatinine Estim Creat Clear Calc Est GFR (MDRD) Af Amer Est GFR (MDRD) Non-Af BUN/Creatinine Ratio Glucose Lactic Acid 1.6 Calcium Total Bilirubin AST ALT Alkaline Phosphatase Total Protein Albumin Globulin Albumin/Globulin Ratio Assessment/Plan All Active Problems PNA (pneumonia) (Acute) HCAP (healthcare-associated pneumonia) (Acute) Acute respiratory failure with hypoxia (Acute) The patient is a 67 y/o M w/ PMHx: Hypertension, Hyperlipidemia, Chronic COPD, MDS, Depression and Anxiety, Severe Protein-Calorie Malnutrition, Chronic Dysphagia non-compliant with diet recommendations as well as EtOH usage w/ recent attempts for EtOH detoxification following fall w/ L sided rib fractures recently discharged from [facility] on 03/05/18 following treatment for sepsis secondary to streptococcal PNA, HCAP and possible aspiration pneumonia as well as MICKI discharged to home on augmentin and levaquin regimen for 6 additional days who now re-presents to the [facility] ED on 03/22/18 with desaturations noted per visiting nursing staff, recurrent dyspnea and coughing progressively worsening w / yellow sputum production. (1) Acute Hypoxic Respiratory Failure secondary to Suspected Recurrent Aspiration PNA and Recent Acute Sepsis secondary to Strep Pneumococcal Pneumonia: Increased work of breathing, accessory muscle usage w/ ED included initially T 99.6, heart rate 90, BP 95/61, respiratory rate 26, 80% on room air -->T 99.4, heart rate 77, BP 130/86, respiratory rate 20, 94% on 3 L nasal cannula, CBC with WBC 6.7, hemoglobin 10.5 (baseline hemoglobin 9-10 range), platelet 223 without market left shift, unremarkable coags, CMP unremarkable aside potassium 3.4, chest x-ray with acute left rib fractures with no evidence of pneumothorax with evidence of prior aspiration of contrast media in the right lung base, chest CTPA with evidence of left lower lobe pneumonia with a 4.1 cm ascending aortic aneurysm with multiple dense foci in the right lower lobe suspicious for prior aspiration of oral contrast medium, healing left rib fractures. Will admit to [place], maintain on oxygen with wean as tolerated to room air, continued ATC duonebs, PRN albuterol, maintain on IV Zosyn given suspected possible aspiration and recent hospital admission and obtain MRSA swab, if positive add Vancomycin given recent admission, repeat urine antigens, sputum cx and respiratory viral panel. Patient has had ongoing speech evaluation w/ aspiration but has clearly refused to follow the recommended diet modifications. Will repeat speech assessment and attempt to maintain thickened liquids however likely will refuse. Encourage HOB, IS parameters. (2) Chronic Dysphagia w/ Non-compliance, Suspected Recurrent and Ongoing Aspiration: Recent admission w/ Speech consultation w/ recommendations to maintain thickened liquid diet; however, refused any thickening agents, will repeat consultation and attempt diet alteration. He had PEG in the past but this was removed secondary to severe diarrhea w/ TFs. (3) Hypokalemia: K 3.4, will administer supplementation, repeat BMP in AM, obtain mag level. (4) Orthostatic Hypotension: Fall precautions, administer IVFs, continue florinef and midodrine. PT, OT consulted. (5) EtOH Abuse History: Patient w/ recent acute detoxication at OSH in late January, remains sober since recent discharge, will encourage continued sobriety, maintain on CIWA protocol to be cautious and continue MVI, thiamine and folic acid. Maintain on nalrexone regimen. Mag and phos pending. (6) MDS: s/p bone marrow transplant, CBC with WBC 6.7, hemoglobin 10.5 (baseline hemoglobin 9-10 range), platelet 223 without market left shift, normal coags. (7) Hyperlipidemia: Continue home statin regimen. (8) Severe Protein-Calorie Malnutrition: Evidenced per habitus, muscle and fat loss, BMI. Nutrition consulted. (9) Anxiety and Depression: Continue home trazodone and escitalopram regimen. (10) DVT Prophylaxis: SCDs, lovenox. (11) CODE status: Discussed CODE status at length including difference between FULL code, DNR-CCA and DNR-CC status. Following discussions about the differences in these status, requested FULL CODE status. Discussed this at length as patient non-complaint with his diet alteration recommendations for speech and has ongoing chronic aspiration w/ serial PNA presentations with recommendation to consider DNR-CCA, no intubation given he would not follow several recommendations that would be required upon these aggressive interventions with his preference for continued comfort to some degree. He noted he would think about this discussion. His remains HCPOA and he does have a living will. Advanced Care Planning Face to Face Time: 16 minutes. Code Visit Inpatient E&M: 14592 Init Hosp L3 Procedures: 15499 Advncd Care Plan 30 Min
[2018-03-22 20:49] LABS: Magnesium 1.5 mg/dL (1.6-2.6); Phosphorus 2.3 mg/dL (2.5-4.9)
[2018-03-22] MEDS: Famotidine 20 MG Tablet PO (21:07)
[2018-03-22] MEDS: Atorvastatin Calcium 10 MG Tablet PO (21:07)
[2018-03-22] MEDS: 0.9% Normal Saline 1,000 ML 100 ML IV (21:07)
[2018-03-22] MEDS: guaiFENesin 1,200 MG Tablet 1200 MG PO (21:07)
[2018-03-22] MEDS: Midodrine HCl 5 MG Tablet 10 MG PO (21:15)
--- NOTE | 2018-03-22 21:15 | NURSING ---
JESSE FROM RESPIRATORY NOTIFIED OF ORDERS FOR NASAL SWAB, PEP, I.S.
[2018-03-22] MEDS: Piperacil/Tazobactam 3.375 GM/50 ML ML IV (22:44)
[2018-03-22] MEDS: traZODone 50 MG Tablet PO (23:00)
[2018-03-23] VITALS (14 sets, daily range): BP systolic 110–149; BP diastolic 70–89; PULSE 70–89; RESP 16–22; TEMP 36.7–37.2; O2SAT 82–98
[2018-03-23] MEDS: Midodrine HCl 5 MG Tablet 10 MG PO ×3 (05:49→20:47)
[2018-03-23] MEDS: Piperacil/Tazobactam 3.375 GM/50 ML ML IV ×3 (05:57→21:45)
[2018-03-23 06:42] LABS: Anion Gap 8 (5-15); BUN 15 mg/dL (7-18); BUN/Creat Ratio 18.6 RATIO (10-20); Calcium,Total 8.4 mg/dL (8.5-10.1); Chloride 103 mmol/L (98-107); Creatinine, Serum 0.81 mg/dL (0.70-1.30); EST Glomerular Filtration Rate 102 mL/min (>60); Est Glom Filt Rate - Afr Amer 123 mL/min (>60); Estimated Creatinine Clearance 76.38 ml/min; Glucose 93 mg/dL (74-106); Potassium 3.9 mmol/L (3.5-5.1); Sodium Level 140 mmol/L (136-145)
[2018-03-23] MEDS: Ipratropium/Albuterol Sulfate 3 ML AMPUL.NEB INHALATION ×5 (06:52→23:24)
[2018-03-23 07:02] LABS: Absolute Lymphocyte Count 0.97 X10^3/ul (0.83-4.51); Absolute Neutrophil Count 4.1 X10^3/uL (2.0-7.7); Basophil# 0.03 X10^3/uL; Basophil% 0.5 % (0-1); Eosinophil# 0.15 X10^3/uL; Eosinophils% 2.5 % (0-5); Hematocrit 31.2 % (40-54); Hemoglobin 9.8 g/dl (13.0-16.5); Lymphocyte # 0.97 X10^3/ul (4.0); Lymphocyte % 16.2 % (19-41); Mean Corp Hgb Conc 31.4 g/gl (32-36); Mean Corpuscular Hgb 29.9 pg (27.0-32.0); Mean Corpuscular Volume 95.1 fL (80-94); Mean Platelet Vol. 9.2 fl (6.2-12.0); Monocyte# 0.72 X10^3/uL; Neutrophil # 4.11 X10^3/uL (2.7-7.7); Neutrophil % 68.5 % (47-70); Platelet Count 220 K/mm3 (150-450); RBC Distribution Width CV 13.1 % (11.6-14.6); RBC Distribution Width SD 45.8 fl (35.1-43.9); Red Blood Count 3.28 M/mm3 (4.6-6.2)
[2018-03-23 07:03] LABS: Differential Indicated SCAN CRITERIA MET; POSITIVE COUNT YES; POSITIVE DIFFERENTIAL NO; POSITIVE MORPHOLOGY NO
[2018-03-23 07:13] LABS: Differential Comment SCANNED
[2018-03-23] MEDS: Aspirin 81 MG TAB.CHEW PO (08:35)
[2018-03-23] MEDS: Folic Acid 1 MG Tablet PO (08:36)
[2018-03-23] MEDS: Multivitamins,Ther W-Minerals Tablet 1 TABLET PO (08:36)
[2018-03-23] MEDS: Fludrocortisone Acetate 0.1 MG Tablet PO (08:36)
[2018-03-23] MEDS: Thiamine Hydrochloride 100 MG Tablet PO ×2 (08:37→17:37)
[2018-03-23] MEDS: Escitalopram Oxalate 20 MG Tablet PO (08:39)
[2018-03-23] MEDS: Famotidine 20 MG Tablet PO ×2 (08:40→20:47)
[2018-03-23] MEDS: guaiFENesin 1,200 MG Tablet 1200 MG PO ×2 (08:40→20:47)
[2018-03-23] MEDS: Enoxaparin 40 MG/0.4 ML Syringe SC (08:43)
--- NOTE | 2018-03-23 10:25 | CASEMGMT ---
IVY TIJERINA Face to Face with patient for initial transition planning/care coordination assessment. RN CM introduced self and role at [facility]. Patient lying in bed, alert and oriented. Patient willing to participate in assessment and is able to answer all questions appropriately. Care providers, pharmacy, and demographics verified. Patient wishes to discharge home with resumption of HHC who he believes is through [facility]. Patient states he has no further needs or concerns at this time. CM to follow for discharge planning needs that may arise. PCP: Jacob Specialists: Soham, pulmonology; Sophie cardiology. Preferred Pharmacy: [facility] Insurance: [facility] Prescription Benefit: yes Living Will/HPOA: yes, Louisa Baker LNOK: Living Arrangements: Patient lives with in one story home with 3 steps to enter home. Patient is independent at home. Transportation: self or DME/HHC: Has walker and nebulizer. Will monitor for home oxygen, patient agreeable to [employer]. Patient states that HHC through [facility] ([facility]) just started with patient. Disposition Plan: Patient to discharge home with resumptions of HHC, family support, and follow-up plans in place. Antonia CORRALES, RN, CM
[2018-03-23] MEDS: 0.9% Normal Saline 1,000 ML 100 ML IV ×2 (10:45→20:49)
--- NOTE | 2018-03-23 15:45 | PCM.PN.HOSP ---
Patient Problems: Active and Suspected Problems HCAP (healthcare-associated pneumonia) (Acute) Acute respiratory failure with hypoxia (Acute) Subjective: No new shortness of breath. States he was non-complaint w thickened liquids due to dislike of the texture. Vitals/I&O's: Vital Signs Temp Pulse Resp BP Pulse Ox 36.7 C 70 22 H 110/70 95 03/23/18 13:30 03/23/18 13:30 03/23/18 13:55 03/23/18 13:30 03/23/18 13:55 Oxygen Flow Rate (L/min) 3 Oxygen Delivery Method Nasal Cannula Weight: 60.192 kg Body Mass Index (BMI) 17.5 Finger Stick Blood Glucose 109 Intake and Output for Last 24 Hours 03/21/18 03/22/18 03/23/18 23:59 23:59 23:59 Intake Total 613 / 613 Output Total 450 / 450 Balance 163 / 163 General: Alert, No apparent distress HEENT: Atraumatic, Normocephalic Oral: Moist Mucosa, No Gingival or Mucosal Lesions/ Ulcerations Neck: No Nodes, Thyroid Normal Size and Texture Lungs: Clear to auscultation, Normal air movement, No rhonchi, No wheeze Cardiovascular: Regular rate, Regular Rhythm, Normal S1, Normal S2, No murmurs Abdomen: Bowel Sounds Present, Soft, Non Tender, Non-Distended, No Hepato-splenomegaly Extremities: No edema, No Calf Tenderness Skin: No rashes, No breakdown Musculoskeletal: No Tenderness to Palpation of Joints or Extremities, Cachexia, Muscle Wasting Psych/Mental Status: Normal Affect, Appropriate Microbiology Past 72 Hours 03/23/18 05:00 Mucosa - Nasopharyngeal Respiratory Panel (PCR) - Final Parainfluenza 2 03/23/18 04:05 Urine, Random Streptococcus pneumoniae Antigen (M - Final 03/23/18 04:05 Urine, Random Legionella Antigen - Final Laboratory Results 03/22/18 14:15: WBC 6.7, RBC 3.52 L, Hgb 10.5 L, Hct 33.1 L, MCV 94.0, MCH 29.8, MCHC 31.7 L, RDW 13.0, RDW Differential 44.8 H, Plt Count 223, MPV 8.8, Immature Gran % (Auto) 0.100, Neut % (Auto) 77.4 H, Lymph % (Auto) 12.2 L, [place] % (Auto) 9.2, Eos % (Auto) 1.0, Baso % (Auto) 0.1, Absolute Neuts (auto) 5.2, Absolute Lymphs (auto) 0.82 L, Total Counted Not Reportable 03/22/18 14:15: PT 13.2, INR 1.0, APTT 30.6 03/22/18 14:15: Sodium 140, Potassium 3.4 L, Chloride 100, Carbon Dioxide 30.0, Anion Gap 10, BUN 18, Creatinine 1.03, Estim Creat Clear Calc 61.56, Est GFR (MDRD) Af Amer 93, Est GFR (MDRD) Non-Af 77, BUN/Creatinine Ratio 17.5, Glucose 92, Calcium 8.9, Total Bilirubin 0.40, AST 29, ALT 35, Alkaline Phosphatase 58, Total Protein 6.8, Albumin 2.6 L, Globulin 4.2, Albumin/Globulin Ratio 0.6 L 03/22/18 14:15: Lactic Acid 1.6 03/22/18 16:25: Phosphorus 2.3 L, Magnesium 1.5 L 03/23/18 06:02: WBC 6.0, RBC 3.28 L, Hgb 9.8 L, Hct 31.2 L, MCV 95.1 H, MCH 29.9, MCHC 31.4 L, RDW 13.1, RDW Differential 45.8 H, Plt Count 220, MPV 9.2, Immature Gran % (Auto) 0.300, Neut % (Auto) 68.5, Lymph % (Auto) 16.2 L, [place] % (Auto) 12.0 H, Eos % (Auto) 2.5, Baso % (Auto) 0.5, Absolute Neuts (auto) 4.1, Absolute Lymphs (auto) 0.97, Total Counted Not Reportable, Differential Comment SCANNED 03/23/18 06:02: Sodium 140, Potassium 3.9, Chloride 103, Carbon Dioxide 29.0, Anion Gap 8, BUN 15, Creatinine 0.81, Estim Creat Clear Calc 76.38, Est GFR (MDRD) Af Amer 123, Est GFR (MDRD) Non-Af 102, BUN/Creatinine Ratio 18.6, Glucose 93, Calcium 8.4 L Current Medications Acetaminophen (Tylenol) 650 mg PO Q4H PRN PRN PRN Reason: FEVER Acetaminophen (Tylenol) 650 mg PO Q6H PRN PRN PRN Reason: Mild Pain (scale 0-3)/T>100.7 Al Hydroxide/Mg Hydroxide (Mylanta Ii) 30 ml PO Q6H PRN PRN PRN Reason: Gastric burning Albuterol Sulfate (Ventolin Aerosols) 2.5 mg INHALATION Q2H PRN PRN PRN Reason: SHORTNESS OF BREATH Albuterol/Ipratropium (Duoneb) 3 ml INHALATION Q4H.RT PENDING SALE TO [facility] Last Admin: 03/23/18 14:47 Dose: 3 ml Aspirin (Aspirin, Baby) 81 mg PO DAILY@0800 PENDING SALE TO [facility] Last Admin: 03/23/18 08:35 Dose: 81 mg Atorvastatin Calcium (Lipitor) 10 mg PO QHS PENDING SALE TO [facility] Last Admin: 03/22/18 21:07 Dose: 10 mg Enoxaparin Sodium (Lovenox) 40 mg SC DAILY@1000 PENDING SALE TO [facility] Last Admin: 03/23/18 08:43 Dose: 40 mg Escitalopram Oxalate (Lexapro) 20 mg PO DAILY PENDING SALE TO [facility] Last Admin: 03/23/18 08:39 Dose: 20 mg Famotidine (Pepcid) 20 mg PO BID PENDING SALE TO [facility] Last Admin: 03/23/18 08:40 Dose: 20 mg Fludrocortisone Acetate (Florinef) 0.1 mg PO DAILYCM PENDING SALE TO [facility] Last Admin: 03/23/18 08:36 Dose: 0.1 mg Folic Acid (Folic Acid) 1 mg PO DAILY@0800 PENDING SALE TO [facility] Stop: 03/25/18 08:01 Last Admin: 03/23/18 08:36 Dose: 1 mg Guaifenesin (Mucinex) 1,200 mg PO BID PENDING SALE TO [facility] Last Admin: 03/23/18 08:40 Dose: 1,200 mg Sodium Chloride () 1,000 mls @ 100 mls/hr IV .Q10H PENDING SALE TO [facility] Last Admin: 03/23/18 10:45 Dose: 100 mls/hr Piperacillin Sod/Tazobactam Sod (Zosyn) 3.375 gm in 50 mls @ 12.5 mls/hr IV Q8 PENDING SALE TO [facility] Last Admin: 03/23/18 13:35 Dose: 12.5 mls/hr Lorazepam (Ativan) 2 mg PO Q2H PRN PRN; Protocol PRN Reason: CIWA score > 8 but <15 Lorazepam (Ativan) 2 mg PO UD PRN; Protocol PRN Reason: CIWA score >/=15. Lorazepam (Ativan) 2 mg IV Q2H PRN PRN; Protocol PRN Reason: CIWA score > 8 but <15 Lorazepam (Ativan) 2 mg IV UD PRN; Protocol PRN Reason: CIWA score >/=15. Magnesium Hydroxide (Milk Of Magnesia) 30 ml PO DAILY PRN PRN PRN Reason: Constipation Midodrine (Proamatine) 10 mg PO TID PENDING SALE TO [facility] Last Admin: 03/23/18 13:37 Dose: 10 mg Multivitamins/Minerals (Multivitamin With Minerals) 1 tablet PO DAILY@0800 PENDING SALE TO [facility] Last Admin: 03/23/18 08:36 Dose: 1 tablet Nutritional Formula (Lactose Free) (Ensure Enlive) 120 ml PO 4X/DAY PENDING SALE TO [facility] Last Admin: 03/23/18 13:36 Dose: 120 ml Ondansetron HCl (Zofran) 4 mg IV Q8H PRN PRN PRN Reason: NAUSEA Promethazine HCl (Phenergan) 12.5 mg IV Q6H PRN PRN PRN Reason: NAUSEA/VOMITING Sodium Chloride () 5 - 30 ml IV UD PRN PRN Reason: SALINE FLUSH Thiamine HCl (Vitamin B1) 100 mg PO BIDCM PENDING SALE TO [facility] Stop: 03/25/18 17:01 Last Admin: 03/23/18 08:37 Dose: 100 mg Trazodone HCl (Desyrel) 50 mg PO QHS PENDING SALE TO [facility] Last Admin: 03/22/18 23:00 Dose: 50 mg Medical Necessity - Tobacco Use Smoking Status: Former smoker Tobacco Use: Non-smoker Assessment/Plan All Active Problems PNA (pneumonia) (Acute) HCAP (healthcare-associated pneumonia) (Acute) Acute respiratory failure with hypoxia (Acute) 1. Acute hypoxic respiratory failure stable may be multifactorial: aspiration pneumonia, pneumonia, parainfluenza virus pulmonary toilet wean oxygen as tolerated 2. suspected gram negative pneumonia stable at risk given hospitalization earlier this month strep and legionella negative continue Zosyn 3. Aspiration pneumonitis advised on risks of recurrent aspiration with dietary indiscretions, but also at risk with following appropriate texture (saliva, emesis) speech therapy evaluation 4. dysphagia chronic as above with #3 advised patient to reconsider code status if he wishes to consume thin liquids 5. CVA chronic continue ASA and statin 6. DVT proph: LMWH Code Visit Inpatient E&M: 41258 Subs Hosp L2
--- NOTE | 2018-03-23 15:57 | PN_ITS ---
Patient Problems: Active and Suspected Problems HCAP (healthcare-associated pneumonia) (Acute) Acute respiratory failure with hypoxia (Acute) Subjective: No new shortness of breath. States he was non-complaint w thickened liquids due to dislike of the texture. Vitals/I&O's: Vital Signs Temp Pulse Resp BP Pulse Ox 36.7 C 70 22 H 110/70 95 03/23/18 13:30 03/23/18 13:30 03/23/18 13:55 03/23/18 13:30 03/23/18 13:55 Oxygen Flow Rate (L/min) 3 Oxygen Delivery Method Nasal Cannula Weight: 60.192 kg Body Mass Index (BMI) 17.5 Finger Stick Blood Glucose 109 Intake and Output for Last 24 Hours 03/21/18 03/22/18 03/23/18 23:59 23:59 23:59 Intake Total 613 / 613 Output Total 450 / 450 Balance 163 / 163 General: Alert, No apparent distress HEENT: Atraumatic, Normocephalic Oral: Moist Mucosa, No Gingival or Mucosal Lesions/ Ulcerations Neck: No Nodes, Thyroid Normal Size and Texture Lungs: Clear to auscultation, Normal air movement, No rhonchi, No wheeze Cardiovascular: Regular rate, Regular Rhythm, Normal S1, Normal S2, No murmurs Abdomen: Bowel Sounds Present, Soft, Non Tender, Non-Distended, No Hepato- splenomegaly Extremities: No edema, No Calf Tenderness Skin: No rashes, No breakdown Musculoskeletal: No Tenderness to Palpation of Joints or Extremities, Cachexia, Muscle Wasting Psych/Mental Status: Normal Affect, Appropriate Microbiology Past 72 Hours 03/23/18 05:00 Mucosa - Nasopharyngeal Respiratory Panel (PCR) - Final Parainfluenza 2 03/23/18 04:05 Urine, Random Streptococcus pneumoniae Antigen (M - Final 03/23/18 04:05 Urine, Random Legionella Antigen - Final Laboratory Results 03/22/18 14:15: WBC 6.7, RBC 3.52 L, Hgb 10.5 L, Hct 33.1 L, MCV 94.0, MCH 29.8, MCHC 31.7 L, RDW 13.0, RDW Differential 44.8 H, Plt Count 223, MPV 8.8, Immature Gran % (Auto) 0.100, Neut % (Auto) 77.4 H, Lymph % (Auto) 12.2 L, [place] % (Auto) 9.2, Eos % (Auto) 1.0, Baso % (Auto) 0.1, Absolute Neuts (auto) 5.2, Absolute Lymphs (auto) 0.82 L, Total Counted Not Reportable 03/22/18 14:15: PT 13.2, INR 1.0, APTT 30.6 03/22/18 14:15: Sodium 140, Potassium 3.4 L, Chloride 100, Carbon Dioxide 30.0, Anion Gap 10, BUN 18, Creatinine 1.03, Estim Creat Clear Calc 61.56, Est GFR (MDRD) Af Amer 93, Est GFR (MDRD) Non-Af 77, BUN/Creatinine Ratio 17.5, Glucose 92, Calcium 8.9, Total Bilirubin 0.40, AST 29, ALT 35, Alkaline Phosphatase 58, Total Protein 6.8, Albumin 2.6 L, Globulin 4.2, Albumin/Globulin Ratio 0.6 L 03/22/18 14:15: Lactic Acid 1.6 03/22/18 16:25: Phosphorus 2.3 L, Magnesium 1.5 L 03/23/18 06:02: WBC 6.0, RBC 3.28 L, Hgb 9.8 L, Hct 31.2 L, MCV 95.1 H, MCH 29.9, MCHC 31.4 L, RDW 13.1, RDW Differential 45.8 H, Plt Count 220, MPV 9.2, Immature Gran % (Auto) 0.300, Neut % (Auto) 68.5, Lymph % (Auto) 16.2 L, [place] % (Auto) 12.0 H, Eos % (Auto) 2.5, Baso % (Auto) 0.5, Absolute Neuts (auto) 4.1, Absolute Lymphs (auto) 0.97, Total Counted Not Reportable, Differential Comment SCANNED 03/23/18 06:02: Sodium 140, Potassium 3.9, Chloride 103, Carbon Dioxide 29.0, Anion Gap 8, BUN 15, Creatinine 0.81, Estim Creat Clear Calc 76.38, Est GFR (MDRD) Af Amer 123, Est GFR (MDRD) Non-Af 102, BUN/Creatinine Ratio 18.6, Glucose 93, Calcium 8.4 L Current Medications Acetaminophen (Tylenol) 650 mg PO Q4H PRN PRN PRN Reason: FEVER Acetaminophen (Tylenol) 650 mg PO Q6H PRN PRN PRN Reason: Mild Pain (scale 0-3)/T>100.7 Al Hydroxide/Mg Hydroxide (Mylanta Ii) 30 ml PO Q6H PRN PRN PRN Reason: Gastric burning Albuterol Sulfate (Ventolin Aerosols) 2.5 mg INHALATION Q2H PRN PRN PRN Reason: SHORTNESS OF BREATH Albuterol/Ipratropium (Duoneb) 3 ml INHALATION Q4H.RT [facility] Last Admin: 03/23/18 14:47 Dose: 3 ml Aspirin (Aspirin, Baby) 81 mg PO DAILY@0800 [facility] Last Admin: 03/23/18 08:35 Dose: 81 mg Atorvastatin Calcium (Lipitor) 10 mg PO QHS [facility] Last Admin: 03/22/18 21:07 Dose: 10 mg Enoxaparin Sodium (Lovenox) 40 mg SC DAILY@1000 [facility] Last Admin: 03/23/18 08:43 Dose: 40 mg Escitalopram Oxalate (Lexapro) 20 mg PO DAILY [facility] Last Admin: 03/23/18 08:39 Dose: 20 mg Famotidine (Pepcid) 20 mg PO BID [facility] Last Admin: 03/23/18 08:40 Dose: 20 mg Fludrocortisone Acetate (Florinef) 0.1 mg PO DAILYCM [facility] Last Admin: 03/23/18 08:36 Dose: 0.1 mg Folic Acid (Folic Acid) 1 mg PO DAILY@0800 [facility] Stop: 03/25/18 08:01 Last Admin: 03/23/18 08:36 Dose: 1 mg Guaifenesin (Mucinex) 1,200 mg PO BID [facility] Last Admin: 03/23/18 08:40 Dose: 1,200 mg Sodium Chloride () 1,000 mls @ 100 mls/hr IV .Q10H [facility] Last Admin: 03/23/18 10:45 Dose: 100 mls/hr Piperacillin Sod/Tazobactam Sod (Zosyn) 3.375 gm in 50 mls @ 12.5 mls/hr IV Q8 [facility] Last Admin: 03/23/18 13:35 Dose: 12.5 mls/hr Lorazepam (Ativan) 2 mg PO Q2H PRN PRN; Protocol PRN Reason: CIWA score > 8 but <15 Lorazepam (Ativan) 2 mg PO UD PRN; Protocol PRN Reason: CIWA score >/=15. Lorazepam (Ativan) 2 mg IV Q2H PRN PRN; Protocol PRN Reason: CIWA score > 8 but <15 Lorazepam (Ativan) 2 mg IV UD PRN; Protocol PRN Reason: CIWA score >/=15. Magnesium Hydroxide (Milk Of Magnesia) 30 ml PO DAILY PRN PRN PRN Reason: Constipation Midodrine (Proamatine) 10 mg PO TID [facility] Last Admin: 03/23/18 13:37 Dose: 10 mg Multivitamins/Minerals (Multivitamin With Minerals) 1 tablet PO DAILY@0800 [facility] Last Admin: 03/23/18 08:36 Dose: 1 tablet Nutritional Formula (Lactose Free) (Ensure Enlive) 120 ml PO 4X/DAY [facility] Last Admin: 03/23/18 13:36 Dose: 120 ml Ondansetron HCl (Zofran) 4 mg IV Q8H PRN PRN PRN Reason: NAUSEA Promethazine HCl (Phenergan) 12.5 mg IV Q6H PRN PRN PRN Reason: NAUSEA/VOMITING Sodium Chloride () 5 - 30 ml IV UD PRN PRN Reason: SALINE FLUSH Thiamine HCl (Vitamin B1) 100 mg PO BIDCM [facility] Stop: 03/25/18 17:01 Last Admin: 03/23/18 08:37 Dose: 100 mg Trazodone HCl (Desyrel) 50 mg PO QHS [facility] Last Admin: 03/22/18 23:00 Dose: 50 mg Medical Necessity - Tobacco Use Smoking Status: Former smoker Tobacco Use: Non-smoker Assessment/Plan All Active Problems PNA (pneumonia) (Acute) HCAP (healthcare-associated pneumonia) (Acute) Acute respiratory failure with hypoxia (Acute) 1. Acute hypoxic respiratory failure * stable * may be multifactorial: aspiration pneumonia, pneumonia, parainfluenza virus * pulmonary toilet * wean oxygen as tolerated 2. suspected gram negative pneumonia * stable * at risk given hospitalization earlier this month * strep and legionella negative * continue Zosyn 3. Aspiration pneumonitis * advised on risks of recurrent aspiration with dietary indiscretions, but also at risk with following appropriate texture (saliva, emesis) * speech therapy evaluation 4. dysphagia * chronic * as above with #3 * advised patient to reconsider code status if he wishes to consume thin liquids 5. CVA * chronic * continue ASA and statin 6. DVT proph: LMWH Code Visit Inpatient E&M: 75639 Subs Hosp L2
--- NOTE | 2018-03-23 17:39 | NURSING ---
pt 94-95% on RA at this time- continuous spo2 applied to keep close watch on pt as we are weaning off of oxygen. Pt notified/ reminded of need for sputum sample and cup provided. Pt verbalized understanding.
[2018-03-23] MEDS: Atorvastatin Calcium 10 MG Tablet PO (20:47)
[2018-03-23] MEDS: traZODone 50 MG Tablet PO (20:47)
[2018-03-24] VITALS (11 sets, daily range): BP systolic 120–155; BP diastolic 83–91; PULSE 76–110; RESP 16–21; TEMP 36.7–37.1; O2SAT 92–95
[2018-03-24] MEDS: Midodrine HCl 5 MG Tablet 10 MG PO ×3 (05:49→21:17)
[2018-03-24] MEDS: Piperacil/Tazobactam 3.375 GM/50 ML ML IV ×3 (05:49→21:09)
[2018-03-24] MEDS: 0.9% Normal Saline 1,000 ML 100 ML IV ×2 (05:49→14:34)
[2018-03-24] MEDS: Ipratropium/Albuterol Sulfate 3 ML AMPUL.NEB INHALATION ×4 (06:52→23:13)
[2018-03-24 07:14] LABS: BUN 9 mg/dL (7-18); Creatinine, Serum 0.76 mg/dL (0.70-1.30); Estimated Creatinine Clearance 61.86 ml/min; Glucose 115 mg/dL (74-106)
[2018-03-24 07:15] LABS: Anion Gap 9 (5-15); BUN/Creat Ratio 11.8 RATIO (10-20); Calcium,Total 8.1 mg/dL (8.5-10.1); Chloride 102 mmol/L (98-107); EST Glomerular Filtration Rate 108 mL/min (>60); Est Glom Filt Rate - Afr Amer 131 mL/min (>60); Magnesium 1.5 mg/dL (1.6-2.6); Phosphorus 2.5 mg/dL (2.5-4.9); Potassium 3.1 mmol/L (3.5-5.1); Prealbumin 10.9 mg/dL (20.0-40.0); Sodium Level 141 mmol/L (136-145); Thyroid Stim Hormone (TSH) 1.03 uIU/mL (0.358-3.74)
[2018-03-24] MEDS: Ondansetron 4 MG/2 ML Vial IV ×2 (07:50→17:04)
[2018-03-24] MEDS: 0.9% NaCl Peripheral Flush Adult/Peds IV ×2 (07:50→17:06)
[2018-03-24] MEDS: Multivitamins,Ther W-Minerals Tablet 1 TABLET PO (09:27)
[2018-03-24] MEDS: Famotidine 20 MG Tablet PO ×2 (09:27→21:16)
[2018-03-24] MEDS: Aspirin 81 MG TAB.CHEW PO (09:28)
[2018-03-24] MEDS: Fludrocortisone Acetate 0.1 MG Tablet PO (09:28)
[2018-03-24] MEDS: Enoxaparin 40 MG/0.4 ML Syringe SC (09:28)
[2018-03-24] MEDS: Escitalopram Oxalate 20 MG Tablet PO (09:28)
[2018-03-24] MEDS: Thiamine Hydrochloride 100 MG Tablet PO ×2 (09:28→17:03)
[2018-03-24] MEDS: guaiFENesin 1,200 MG Tablet 1200 MG PO ×2 (09:28→21:16)
[2018-03-24] MEDS: Folic Acid 1 MG Tablet PO (09:28)
--- NOTE | 2018-03-24 09:57 | PCM.PN.HOSP ---
Patient Problems: Active and Suspected Problems HCAP (healthcare-associated pneumonia) (Acute) Acute respiratory failure with hypoxia (Acute) Subjective: Can't stand the thickened liquids. Complains of chronic nausea with no relieving nor exacerbating factors. Vitals/I&O's: Vital Signs Temp Pulse Resp BP Pulse Ox 37.1 C 82 18 120/83 H 93 03/24/18 09:13 03/24/18 09:13 03/24/18 09:13 03/24/18 09:13 03/24/18 09:13 Oxygen Flow Rate (L/min) 2 Oxygen Delivery Method Room Air Weight: 60.192 kg Body Mass Index (BMI) 17.5 Finger Stick Blood Glucose 109 Intake and Output for Last 24 Hours 03/22/18 03/23/18 03/24/18 23:59 23:59 23:59 Intake Total 1416 / 1416 1396 / 1396 Output Total 725 / 725 2100 / 2100 Balance 691 / 691 -704 / -704 General: Alert, No apparent distress HEENT: Atraumatic, Normocephalic Neck: No Nodes, Thyroid Normal Size and Texture Lungs: Normal air movement, - - coarse breath sounds bilaterally. Cardiovascular: Regular rate, Regular Rhythm, Normal S1, Normal S2, No murmurs Abdomen: Bowel Sounds Present, Soft, Non Tender, Non-Distended, No Hepato-splenomegaly Extremities: No edema, No Calf Tenderness Skin: No rashes, No breakdown Musculoskeletal: Cachexia, Muscle Wasting Psych/Mental Status: Appropriate, Flat Affect Microbiology Past 72 Hours 03/23/18 05:00 Mucosa - Nasopharyngeal Respiratory Panel (PCR) - Final Parainfluenza 2 03/23/18 04:05 Urine, Random Streptococcus pneumoniae Antigen (M - Final 03/23/18 04:05 Urine, Random Legionella Antigen - Final Laboratory Results 03/24/18 06:14: Sodium 141, Potassium 3.1 L, Chloride 102, Carbon Dioxide 30.0, Anion Gap 9, BUN 9, Creatinine 0.76, Estim Creat Clear Calc 61.86, Est GFR (MDRD) Af Amer 131, Est GFR (MDRD) Non-Af 108, BUN/Creatinine Ratio 11.8, Glucose 115 H, Calcium 8.1 L, Phosphorus 2.5, Magnesium 1.5 L, Prealbumin 10.9 L, TSH 1.03 Current Medications Acetaminophen (Tylenol) 650 mg PO Q4H PRN PRN PRN Reason: FEVER Acetaminophen (Tylenol) 650 mg PO Q6H PRN PRN PRN Reason: Mild Pain (scale 0-3)/T>100.7 Al Hydroxide/Mg Hydroxide (Mylanta Ii) 30 ml PO Q6H PRN PRN PRN Reason: Gastric burning Albuterol Sulfate (Ventolin Aerosols) 2.5 mg INHALATION Q2H PRN PRN PRN Reason: SHORTNESS OF BREATH Albuterol/Ipratropium (Duoneb) 3 ml INHALATION Q4H.RT [facility] Last Admin: 03/24/18 06:52 Dose: 3 ml Aspirin (Aspirin, Baby) 81 mg PO DAILY@0800 [facility] Last Admin: 03/24/18 09:28 Dose: 81 mg Atorvastatin Calcium (Lipitor) 10 mg PO QHS [facility] Last Admin: 03/23/18 20:47 Dose: 10 mg Enoxaparin Sodium (Lovenox) 40 mg SC DAILY@1000 [facility] Last Admin: 03/24/18 09:28 Dose: 40 mg Escitalopram Oxalate (Lexapro) 20 mg PO DAILY [facility] Last Admin: 03/24/18 09:28 Dose: 20 mg Famotidine (Pepcid) 20 mg PO BID [facility] Last Admin: 03/24/18 09:27 Dose: 20 mg [facility]is[facility] ([facility] Admin: 03/24/18 09:28 Dose: 0.1 mg Folic Acid (Folic Acid) 1 mg PO DAILY@0800 [facility] Stop: 03/25/18 08:01 Last Admin: 03/24/18 09:28 Dose: 1 mg Guaifenesin (Mucinex) 1,200 mg PO BID [facility] Last Admin: 03/24/18 09:28 Dose: 1,200 mg Sodium Chloride () 1,000 mls @ 100 mls/hr IV .Q10H [facility] Last Admin: 03/24/18 05:49 Dose: 100 mls/hr Piperacillin Sod/Tazobactam Sod (Zosyn) 3.375 gm in 50 mls @ 12.5 mls/hr IV Q8 [facility] Last Admin: 03/24/18 05:49 Dose: 12.5 mls/hr Magnesium Sulfate 2 gm/ Sodium (Chloride) 104 mls @ 52 mls/hr IV X1 [facility] Stop: 03/24/18 10:29 Lorazepam (Ativan) 2 mg PO Q2H PRN PRN; Protocol PRN Reason: CIWA score > 8 but <15 Lorazepam (Ativan) 2 mg PO UD PRN; Protocol PRN Reason: CIWA score >/=15. Lorazepam (Ativan) 2 mg IV Q2H PRN PRN; Protocol PRN Reason: CIWA score > 8 but <15 Lorazepam (Ativan) 2 mg IV UD PRN; Protocol PRN Reason: CIWA score >/=15. Magnesium Hydroxide (Milk Of Magnesia) 30 ml PO DAILY PRN PRN PRN Reason: Constipation Midodrine (Proamatine) 10 mg PO TID [facility] Last Admin: 03/24/18 05:49 Dose: 10 mg Multivitamins/Minerals (Multivitamin With Minerals) 1 tablet PO DAILY@0800 [facility] Last Admin: 03/24/18 09:27 Dose: 1 tablet Nutritional Formula (Lactose Free) (Ensure Enlive) 120 ml PO 4X/DAY [facility] Last Admin: 03/24/18 09:29 Dose: 120 ml Ondansetron HCl (Zofran) 4 mg IV Q8H PRN PRN PRN Reason: NAUSEA Last Admin: 03/24/18 07:50 Dose: 4 mg Promethazine HCl (Phenergan) 12.5 mg IV Q6H PRN PRN PRN Reason: NAUSEA/VOMITING Sodium Chloride () 5 - 30 ml IV UD PRN PRN Reason: SALINE FLUSH Last Admin: 03/24/18 07:50 Dose: 20 ml Thiamine HCl (Vitamin B1) 100 mg PO BIDCM [facility] Stop: 03/25/18 17:01 Last Admin: 03/24/18 09:28 Dose: 100 mg Trazodone HCl (Desyrel) 50 mg PO QHS [facility] Last Admin: 03/23/18 20:47 Dose: 50 mg Medical Necessity - Tobacco Use Smoking Status: Former smoker Tobacco Use: Non-smoker Assessment/Plan All Active Problems PNA (pneumonia) (Acute) HCAP (healthcare-associated pneumonia) (Acute) Acute respiratory failure with hypoxia (Acute) 1. Acute hypoxic respiratory failure stable may be multifactorial: aspiration pneumonia, pneumonia, parainfluenza virus pulmonary toilet wean oxygen as tolerated 2. suspected gram negative pneumonia stable at risk given hospitalization earlier this month strep and legionella negative continue Zosyn sputum culture from 03/23 pending. Will follow up on 03/25, and if negative, then may DC abx. 3. Aspiration pneumonitis advised on risks of recurrent aspiration with dietary indiscretions, but also at risk with following appropriate texture (saliva, emesis) speech therapy evaluation 4. dysphagia chronic as above with #[address] recommends thickened liquids. 5. CVA chronic continue ASA and statin 6. DVT proph: LMWH 7. Nausea: chronic, but causing patient significant duress. continue Zofran and phenergan Start PPI. Advanced care planning: Spent an additional 16 minutes discussing goals of care with patient. Discussed that if pt has a liberalized diet he will be at risk for further aspiration events, which could culminate into respiratory failure/arrest and event cardiac arrest. I recommended DNRCCA, liberalized diet and palliative care--he agreed. Also, discussed that palliative care and help with symptoms outside of the hospital. Code Visit Inpatient E&M: 85184 Subs Hosp L2 Procedures: 27953 Advncd Care Plan 30 Min
--- NOTE | 2018-03-24 10:05 | PN_ITS ---
Patient Problems: Active and Suspected Problems HCAP (healthcare-associated pneumonia) (Acute) Acute respiratory failure with hypoxia (Acute) Subjective: Can't stand the thickened liquids. Complains of chronic nausea with no relieving nor exacerbating factors. Vitals/I&O's: Vital Signs Temp Pulse Resp BP Pulse Ox 37.1 C 82 18 120/83 H 93 03/24/18 09:13 03/24/18 09:13 03/24/18 09:13 03/24/18 09:13 03/24/18 09:13 Oxygen Flow Rate (L/min) 2 Oxygen Delivery Method Room Air Weight: 60.192 kg Body Mass Index (BMI) 17.5 Finger Stick Blood Glucose 109 Intake and Output for Last 24 Hours 03/22/18 03/23/18 03/24/18 23:59 23:59 23:59 Intake Total 1416 / 1416 1396 / 1396 Output Total 725 / 725 2100 / 2100 Balance 691 / 691 -704 / -704 General: Alert, No apparent distress HEENT: Atraumatic, Normocephalic Neck: No Nodes, Thyroid Normal Size and Texture Lungs: Normal air movement, - - coarse breath sounds bilaterally. Cardiovascular: Regular rate, Regular Rhythm, Normal S1, Normal S2, No murmurs Abdomen: Bowel Sounds Present, Soft, Non Tender, Non-Distended, No Hepato- splenomegaly Extremities: No edema, No Calf Tenderness Skin: No rashes, No breakdown Musculoskeletal: Cachexia, Muscle Wasting Psych/Mental Status: Appropriate, Flat Affect Microbiology Past 72 Hours 03/23/18 05:00 Mucosa - Nasopharyngeal Respiratory Panel (PCR) - Final Parainfluenza 2 03/23/18 04:05 Urine, Random Streptococcus pneumoniae Antigen (M - Final 03/23/18 04:05 Urine, Random Legionella Antigen - Final Laboratory Results 03/24/18 06:14: Sodium 141, Potassium 3.1 L, Chloride 102, Carbon Dioxide 30.0, Anion Gap 9, BUN 9, Creatinine 0.76, Estim Creat Clear Calc 61.86, Est GFR (MDRD) Af Amer 131, Est GFR (MDRD) Non-Af 108, BUN/Creatinine Ratio 11.8, Glucose 115 H, Calcium 8.1 L, Phosphorus 2.5, Magnesium 1.5 L, Prealbumin 10.9 L , TSH 1.03 Current Medications Acetaminophen (Tylenol) 650 mg PO Q4H PRN PRN PRN Reason: FEVER Acetaminophen (Tylenol) 650 mg PO Q6H PRN PRN PRN Reason: Mild Pain (scale 0-3)/T>100.7 Al Hydroxide/Mg Hydroxide (Mylanta Ii) 30 ml PO Q6H PRN PRN PRN Reason: Gastric burning Albuterol Sulfate (Ventolin Aerosols) 2.5 mg INHALATION Q2H PRN PRN PRN Reason: SHORTNESS OF BREATH Albuterol/Ipratropium (Duoneb) 3 ml INHALATION Q4H.RT [facility] Last Admin: 03/24/18 06:52 Dose: 3 ml Aspirin (Aspirin, Baby) 81 mg PO DAILY@0800 [facility] Last Admin: 03/24/18 09:28 Dose: 81 mg Atorvastatin Calcium (Lipitor) 10 mg PO QHS [facility] Last Admin: 03/23/18 20:47 Dose: 10 mg Enoxaparin Sodium (Lovenox) 40 mg SC DAILY@1000 [facility] Last Admin: 03/24/18 09:28 Dose: 40 mg Escitalopram Oxalate (Lexapro) 20 mg PO DAILY [facility] Last Admin: 03/24/18 09:28 Dose: 20 mg Famotidine (Pepcid) 20 mg PO BID [facility] Last Admin: 03/24/18 09:27 Dose: 20 mg [facility] ([facility]) [facility] Last Admin: 03/24/18 09:28 Dose: 0.1 mg Folic Acid (Folic Acid) 1 mg PO DAILY@0800 [facility] Stop: 03/25/18 08:01 Last Admin: 03/24/18 09:28 Dose: 1 mg Guaifenesin (Mucinex) 1,200 mg PO BID [facility] Last Admin: 03/24/18 09:28 Dose: 1,200 mg Sodium Chloride () 1,000 mls @ 100 mls/hr IV .Q10H [facility] Last Admin: 03/24/18 05:49 Dose: 100 mls/hr Piperacillin Sod/Tazobactam Sod (Zosyn) 3.375 gm in 50 mls @ 12.5 mls/hr IV Q8 [facility] Last Admin: 03/24/18 05:49 Dose: 12.5 mls/hr Magnesium Sulfate 2 gm/ Sodium (Chloride) 104 mls @ 52 mls/hr IV X1 [facility] Stop: 03/24/18 10:29 Lorazepam (Ativan) 2 mg PO Q2H PRN PRN; Protocol PRN Reason: CIWA score > 8 but <15 Lorazepam (Ativan) 2 mg PO UD PRN; Protocol PRN Reason: CIWA score >/=15. Lorazepam (Ativan) 2 mg IV Q2H PRN PRN; Protocol PRN Reason: CIWA score > 8 but <15 Lorazepam (Ativan) 2 mg IV UD PRN; Protocol PRN Reason: CIWA score >/=15. Magnesium Hydroxide (Milk Of Magnesia) 30 ml PO DAILY PRN PRN PRN Reason: Constipation Midodrine (Proamatine) 10 mg PO TID [facility] Last Admin: 03/24/18 05:49 Dose: 10 mg Multivitamins/Minerals (Multivitamin With Minerals) 1 tablet PO DAILY@0800 [facility] Last Admin: 03/24/18 09:27 Dose: 1 tablet Nutritional Formula (Lactose Free) (Ensure Enlive) 120 ml PO 4X/DAY [facility] Last Admin: 03/24/18 09:29 Dose: 120 ml Ondansetron HCl (Zofran) 4 mg IV Q8H PRN PRN PRN Reason: NAUSEA Last Admin: 03/24/18 07:50 Dose: 4 mg Promethazine HCl (Phenergan) 12.5 mg IV Q6H PRN PRN PRN Reason: NAUSEA/VOMITING Sodium Chloride () 5 - 30 ml IV UD PRN PRN Reason: SALINE FLUSH Last Admin: 03/24/18 07:50 Dose: 20 ml Thiamine HCl (Vitamin B1) 100 mg PO BIDCM [facility] Stop: 03/25/18 17:01 Last Admin: 03/24/18 09:28 Dose: 100 mg Trazodone HCl (Desyrel) 50 mg PO QHS [facility] Last Admin: 03/23/18 20:47 Dose: 50 mg Medical Necessity - Tobacco Use Smoking Status: Former smoker Tobacco Use: Non-smoker Assessment/Plan All Active Problems PNA (pneumonia) (Acute) HCAP (healthcare-associated pneumonia) (Acute) Acute respiratory failure with hypoxia (Acute) 1. Acute hypoxic respiratory failure * stable * may be multifactorial: aspiration pneumonia, pneumonia, parainfluenza virus * pulmonary toilet * wean oxygen as tolerated 2. suspected gram negative pneumonia * stable * at risk given hospitalization earlier this month * strep and legionella negative * continue Zosyn * sputum culture from 03/23 pending. Will follow up on 03/25, and if negative, then may DC abx. 3. Aspiration pneumonitis * advised on risks of recurrent aspiration with dietary indiscretions, but also at risk with following appropriate texture (saliva, emesis) * speech therapy evaluation 4. dysphagia * chronic * as above with #3 * seen by ST who recommends thickened liquids. 5. CVA * chronic * continue ASA and statin 6. DVT proph: LMWH 7. Nausea: * chronic, but causing patient significant duress. * continue Zofran and phenergan * Start PPI. Advanced care planning: Spent an additional 16 minutes discussing goals of care with patient. Discussed that if pt has a liberalized diet he will be at risk for further aspiration events, which could culminate into respiratory failure/arrest and event cardiac arrest. I recommended DNRCCA, liberalized diet and palliative care--he agreed. Also, discussed that palliative care and help with symptoms outside of the hospital. Code Visit Inpatient E&M: 22090 Subs Hosp L2 Procedures: 86611 Advncd Care Plan 30 Min
--- NOTE | 2018-03-24 10:40 | CASEMGMT ---
Social Work Note Per physician, pt is agreeable to Palliative Care referral. SW placed a call to [facility] and provided Palliative Care referral to [facility]. SW faxed referral to [facility]. SW received message from Fahad at [facility] stating pt's will be at [facility] around 4:00pm and per Fahad she is to call the around that time to discuss Palliative Care Services. Antonia Rosen MANAGEMENT PROFESSIONAL, INTERNET MARKETING MANAGER
[2018-03-24] MEDS: Pantoprazole Sodium 40 MG Tablet PO (11:45)
--- NOTE | 2018-03-24 19:26 | CPS ---
PT ENCOURAGED TO DO PEP ON OWN
[2018-03-24] MEDS: Atorvastatin Calcium 10 MG Tablet PO (21:16)
[2018-03-24] MEDS: traZODone 50 MG Tablet PO (21:17)
[2018-03-25 03:00] VITALS: BP 145/97; PULSE 92; RESP 16; TEMP 36.7; O2SAT 96
[2018-03-25] MEDS: 0.9% Normal Saline 1,000 ML 100 ML IV (03:00)
[2018-03-25] MEDS: Piperacil/Tazobactam 3.375 GM/50 ML ML IV (05:55)
[2018-03-25] MEDS: Midodrine HCl 5 MG Tablet 10 MG PO (05:56)
[2018-03-25 06:33] LABS: Anion Gap 8 (5-15); BUN 8 mg/dL (7-18); BUN/Creat Ratio 10.5 RATIO (10-20); Calcium,Total 7.9 mg/dL (8.5-10.1); Chloride 104 mmol/L (98-107); Creatinine, Serum 0.76 mg/dL (0.70-1.30); EST Glomerular Filtration Rate 109 mL/min (>60); Est Glom Filt Rate - Afr Amer 131 mL/min (>60); Estimated Creatinine Clearance 61.86 ml/min; Glucose 96 mg/dL (74-106); Magnesium 1.7 mg/dL (1.6-2.6); Potassium 3.3 mmol/L (3.5-5.1); Sodium Level 142 mmol/L (136-145)
[2018-03-25 06:44] VITALS: PULSE 80; RESP 16; O2SAT 95
[2018-03-25] MEDS: Ipratropium/Albuterol Sulfate 3 ML AMPUL.NEB INHALATION ×2 (06:44→10:48)
[2018-03-25 09:00] VITALS: BP 117/78; PULSE 88; RESP 18; TEMP 36.7; O2SAT 93
[2018-03-25] MEDS: Famotidine 20 MG Tablet PO (09:14)
[2018-03-25] MEDS: Fludrocortisone Acetate 0.1 MG Tablet PO (09:14)
[2018-03-25] MEDS: guaiFENesin 1,200 MG Tablet 1200 MG PO (09:14)
[2018-03-25] MEDS: Thiamine Hydrochloride 100 MG Tablet PO (09:14)
[2018-03-25] MEDS: Folic Acid 1 MG Tablet PO (09:14)
[2018-03-25] MEDS: Pantoprazole Sodium 40 MG Tablet PO (09:14)
[2018-03-25] MEDS: Aspirin 81 MG TAB.CHEW PO (09:14)
[2018-03-25] MEDS: Multivitamins,Ther W-Minerals Tablet 1 TABLET PO (09:14)
[2018-03-25] MEDS: Escitalopram Oxalate 20 MG Tablet PO (09:14)
[2018-03-25] MEDS: Enoxaparin 40 MG/0.4 ML Syringe SC (09:14)
--- NOTE | 2018-03-25 09:54 | PCM.DC.SUM ---
Discharge Date and Diagnosis - Problem List Patient Problems: Active and Suspected Problems HCAP (healthcare-associated pneumonia) (Acute) Acute respiratory failure with hypoxia (Acute) Date of Admission: 03/22/18 Date of Discharge: 03/25/18 - Primary Discharge Diagnosis Active and Suspected Problems HCAP (healthcare-associated pneumonia) (Acute) Acute respiratory failure with hypoxia (Acute) 1. Acute hypoxic respiratory failure stable may be multifactorial: aspiration pneumonia, pneumonia, parainfluenza virus pulmonary toilet wean oxygen as tolerated 2. suspected gram negative pneumonia stable at risk given hospitalization earlier this month strep and legionella negative continue Zosyn sputum culture from 03/23 pending. Will follow up on 03/25, and if negative, then may DC abx. 3. Aspiration pneumonitis advised on risks of recurrent aspiration with dietary indiscretions, but also at risk with following appropriate texture (saliva, emesis) speech therapy evaluation 4. dysphagia chronic as above with #[address] recommends thickened liquids. 5. CVA chronic continue ASA and statin 6. Nausea: chronic, but causing patient significant duress. continue Zofran and phenergan Start PPI. Advanced care planning: Discussed that if pt has a liberalized diet he will be at risk for further aspiration events, which could culminate into respiratory failure/arrest and event cardiac arrest. I recommended DNRCCA, liberalized diet and palliative care--he agreed. Also, discussed that palliative care and help with symptoms outside of the hospital. - Secondary Discharge Diagnosis Chronic Problems Dysphagia (Chronic) CVA (cerebral infarction) (Chronic) Hypertension (Chronic) COPD (chronic obstructive pulmonary disease) (Chronic) Hyperlipidemia (Chronic) Alcohol abuse (Chronic) Anxiety and depression (Chronic) Myelodysplasia (Chronic) Hospital Course and Treatment Imaging Results: Clinical Impression(s) from Imaging Studies Chest X-Ray 03/22/18 16:33 IMPRESSION: 1. Acute left rib fractures. No pneumothorax. 2. Evidence of prior aspiration of contrast media in the right lung base. Electronically Signed: Tammy Osborn MD at 17:12 EDT Tel , Service support , Chest CTA 03/22/18 16:59 IMPRESSION: 1. Left lower lobe pneumonia. 2. A 4.1 cm ascending aortic aneurysm. 3. Multiple dense foci in the right lower lobe, suspicious for prior aspiration of oral contrast medium. 4. Healing left rib fractures. Electronically Signed: Tammy Osborn MD at 18:59 EDT Tel , Service support , Operations: None Procedures: None Summary of Care Provided: The patient is a 67 year old M presents with cough, sputum production and hypoxia per visiting nurse. Patient was sent to the emergency room and was concerned for healthcare acquired pneumonia. Patient was just recently discharged with aspiration pneumonia. Patient has chronic dysphasia loculated with prior stroke the patient has been noncompliant with a strict diet. Patient was started on Zosyn. Chest x-ray did show some evidence of aspiration right lower lobe patient also did have a patchy left lower lobe infiltrate.. Acute respiratory panel was positive for parainfluenza virus. The parainfluenza virus is likely etiology of his respiratory issues, however, given his continued aspiration the noncompliant patient will continue to receive antibiotics for 5 more days with Augmentin empirically for potential aspiration pneumonia. Did discuss CODE STATUS with the patient and since he wishes to have a liberalize diet despite obviously aspirating I strongly recommend DNR Comfort Care arrest. Patient agreed. I also did discuss palliative care to help with symptom control. Patient does have a chronic nausea to which we have started him on Protonix as well as continue with his Zofran at home as well as Phenergan. [] Patient Problems: Active and Suspected Problems HCAP (healthcare-associated pneumonia) (Acute) Acute respiratory failure with hypoxia (Acute) - Physical Exam General: Alert, Cooperative, No apparent distress HEENT: Atraumatic, Normocephalic Oral: Moist Mucosa, No Gingival or Mucosal Lesions/ Ulcerations Neck: No Nodes, Thyroid Normal Size and Texture Lungs: Clear to auscultation, Normal air movement, No rhonchi, No wheeze Cardiovascular: Regular rate, Regular Rhythm, Normal S1, Normal S2, No murmurs Abdomen: Bowel Sounds Present, Soft, Non Tender, Non-Distended Extremities: No edema, No Calf Tenderness Musculoskeletal: Cachexia, Muscle Wasting Vital Signs Temp Pulse Resp BP Pulse Ox 36.7 C 88 18 117/78 93 03/25/18 09:00 03/25/18 09:00 03/25/18 09:00 03/25/18 09:00 03/25/18 09:00 Oxygen Flow Rate (L/min) 2 Oxygen Delivery Method Room Air Weight: 60.192 kg Body Mass Index (BMI) 17.5 Finger Stick Blood Glucose 109 Intake and Output for Last 24 Hours 03/23/18 03/24/18 03/25/18 23:59 23:59 23:59 Intake Total 1416 / 1416 3089 / 3089 2293 / 2293 Output Total 725 / 725 4215 / 4215 1625 / 1625 Balance 691 / 691 -1126 / -1126 668 / 668 Microbiology Past 72 Hours 03/22/18 16:25 Blood Culture - Preliminary Blood Culture (Wb) - Left Forearm No growth in 48 hours. 03/22/18 14:15 Blood Culture - Preliminary Blood Culture (Wb) - Anticubital Left No growth in 48 hours. 03/23/18 19:20 Gram Stain - Final Sputum, Expectorated/Coughed Respiratory Culture - Preliminary Appears to be normal respiratory german. Further studies to follow. 03/23/18 05:00 Respiratory Panel (PCR) - Final Mucosa - Nasopharyngeal Parainfluenza 2 03/23/18 04:05 Streptococcus pneumoniae Antigen (M - Final Urine, Random 03/23/18 04:05 Legionella Antigen - Final Urine, Random Laboratory Tests Past 24 Hrs 03/25/18 05:20 Sodium 142 Potassium 3.3 L Chloride 104 Carbon Dioxide 30.0 Anion Gap 8 BUN 8 Creatinine 0.76 Estim Creat Clear Calc 61.86 Est GFR (MDRD) Af Amer 131 Est GFR (MDRD) Non-Af 109 BUN/Creatinine Ratio 10.5 Glucose 96 Calcium 7.9 L Magnesium 1.7 Discharge Diet: No Restrictions, - - eat sitting up during and 30 minutes after eating. Discharge Activity: Return to Normal Activity Call your doctor if you observe: Fever of 101 or Higher, Shortness of breath Home Medications: Medications to take at Discharge Albuterol Inhaler [Ventolin Hfa] 1 puff INHALATION PRN PRN 04/17/14 Simvastatin [Zocor] 20 mg PO QHS 04/17/14 traZODone [Desyrel] 50 mg PO DAILY 04/17/14 Aspirin [Aspirin, Baby] 81 mg PO DAILY@0800 08/08/17 Escitalopram Oxalate [Lexapro] 20 mg PO DAILY 08/08/17 Fludrocortisone Acetate [Florinef] 0.1 mg PO DAILY 03/02/18 Garlic 1,000 mg PO DAILY 03/02/18 Multivit-Min/FA/Herbal No.245 [Alive Women's Gummy Vitamins] 1 each PO DAILY 03/02/18 Umeclidinium Brm/Vilanterol Tr [Anoro Ellipta 62.5-25 Mcg INH] 1 inh INHALATION DAILY 03/02/18 Ensure Enlive 120 ml PO 4X/DAY #100 liquid 03/05/18 Midodrine HCl 10 mg PO TID 03/22/18 Gabapentin [Neurontin] 100 mg PO Q8 03/23/18 Amoxicillin/Potassium Clav [Augmentin 875-125 Tablet] 1 each PO BID #10 tablet 03/25/18 Following Prescrptions Were Given to Patient: Amoxicillin/Potassium Clav [Augmentin 875-125 Tablet] 1 each PO BID #10 tablet Other Amb Orders: Basic Metabolic Profile (BMP) Time Frame: 1 Week, Location: Laboratory Magnesium Time Frame: 1 Week, Location: Laboratory Primary Care Physician: Sean James PA [Primary Care Provider] - Within 2 Weeks Disposition: Home Minutes spent on discharge:: 35 Patient Condition:: Fair Medical Necessity - Tobacco Use Smoking Status: Former smoker Tobacco Use: Non-smoker Meaningful Use Info Meaningful Use Diagnoses (Choose all that apply): None applicable Code Visit Inpatient E&M: 23608 Disch Hosp
--- NOTE | 2018-03-25 09:55 | DCINST_ITS ---
- Discharge Diagnoses Current Active Problems: Current Active and Chronic Problems HCAP (healthcare-associated pneumonia) (Acute) Acute respiratory failure with hypoxia (Acute) You will use the following diet at home:: Other - eat and drink sitting upright during and 30 minutes afterwards. Your food should be the consistency of: Regular Your liquids should be the consistency of: Regular/Thin Discharge Activity: Return to Normal Activity Call your doctor if you observe: Fever of 101 or Higher, Shortness of breath Allergies/Adverse Reactions: Allergies PANTANODINE Allergy (Uncoded 03/22/18 16:04) Unknown Medications to take at Discharge Albuterol Inhaler [Ventolin Hfa] 1 puff INHALATION PRN PRN 04/17/14 Simvastatin [Zocor] 20 mg PO QHS 04/17/14 traZODone [Desyrel] 50 mg PO DAILY 04/17/14 Aspirin [Aspirin, Baby] 81 mg PO DAILY@0800 08/08/17 Escitalopram Oxalate [Lexapro] 20 mg PO DAILY 08/08/17 Fludrocortisone Acetate [Florinef] 0.1 mg PO DAILY 03/02/18 Garlic 1,000 mg PO DAILY 03/02/18 Multivit-Min/FA/Herbal No.245 [Alive Women's Gummy Vitamins] 1 each PO DAILY 03/02/18 Umeclidinium Brm/Vilanterol Tr [Anoro Ellipta 62.5-25 Mcg INH] 1 inh INHALATION DAILY 03/02/18 Ensure Enlive 120 ml PO 4X/DAY #100 liquid 03/05/18 Midodrine HCl 10 mg PO TID 03/22/18 Gabapentin [Neurontin] 100 mg PO Q8 03/23/18 Amoxicillin/Potassium Clav [Augmentin 875-125 Tablet] 1 each PO BID #10 tablet 03/25/18 The following prescriptions were given: Amoxicillin/Potassium Clav [Augmentin 875-125 Tablet] 1 each PO BID #10 tablet Orders to be completed after discharge: Basic Metabolic Profile (BMP) Time Frame: 1 Week, Location: Laboratory Magnesium Time Frame: 1 Week, Location: Laboratory Primary Care Physician: Sean James PA [Primary Care Provider] - Within 2 Weeks Test Results: Test results from this visit will be discussed in further detail at your follow- up appointment, if applicable. Proposed Discharge Date: 03/25/18
--- NOTE | 2018-03-25 10:01 | DS.PCM_ITS ---
Discharge Date and Diagnosis - Problem List Patient Problems: Active and Suspected Problems HCAP (healthcare-associated pneumonia) (Acute) Acute respiratory failure with hypoxia (Acute) Date of Admission: 03/22/18 Date of Discharge: 03/25/18 - Primary Discharge Diagnosis Active and Suspected Problems HCAP (healthcare-associated pneumonia) (Acute) Acute respiratory failure with hypoxia (Acute) 1. Acute hypoxic respiratory failure * stable * may be multifactorial: aspiration pneumonia, pneumonia, parainfluenza virus * pulmonary toilet * wean oxygen as tolerated 2. suspected gram negative pneumonia * stable * at risk given hospitalization earlier this month * strep and legionella negative * continue Zosyn * sputum culture from 03/23 pending. Will follow up on 03/25, and if negative, then may DC abx. 3. Aspiration pneumonitis * advised on risks of recurrent aspiration with dietary indiscretions, but also at risk with following appropriate texture (saliva, emesis) * speech therapy evaluation 4. dysphagia * chronic * as above with #3 * seen by ST who recommends thickened liquids. 5. CVA * chronic * continue ASA and statin 6. Nausea: * chronic, but causing patient significant duress. * continue Zofran and phenergan * Start PPI. Advanced care planning: Discussed that if pt has a liberalized diet he will be at risk for further aspiration events, which could culminate into respiratory failure/arrest and event cardiac arrest. I recommended DNRCCA, liberalized diet and palliative care--he agreed. Also, discussed that palliative care and help with symptoms outside of the hospital. - Secondary Discharge Diagnosis Chronic Problems Dysphagia (Chronic) CVA (cerebral infarction) (Chronic) Hypertension (Chronic) COPD (chronic obstructive pulmonary disease) (Chronic) Hyperlipidemia (Chronic) Alcohol abuse (Chronic) Anxiety and depression (Chronic) Myelodysplasia (Chronic) Hospital Course and Treatment Imaging Results: Clinical Impression(s) from Imaging Studies Chest X-Ray 03/22/18 16:33 IMPRESSION: 1. Acute left rib fractures. No pneumothorax. 2. Evidence of prior aspiration of contrast media in the right lung base. Electronically Signed: Tammy Osborn MD at 17:12 EDT Tel , Service support , Chest CTA 03/22/18 16:59 IMPRESSION: 1. Left lower lobe pneumonia. 2. A 4.1 cm ascending aortic aneurysm. 3. Multiple dense foci in the right lower lobe, suspicious for prior aspiration of oral contrast medium. 4. Healing left rib fractures. Electronically Signed: Tammy Osborn MD at 18:59 EDT Tel , Service support , Operations: None Procedures: None Summary of Care Provided: The patient is a 67 year old M presents with cough, sputum production and hypoxia per visiting nurse. Patient was sent to the emergency room and was concerned for healthcare acquired pneumonia. Patient was just recently discharged with aspiration pneumonia. Patient has chronic dysphasia loculated with prior stroke the patient has been noncompliant with a strict diet. Patient was started on Zosyn. Chest x-ray did show some evidence of aspiration right lower lobe patient also did have a patchy left lower lobe infiltrate.. Acute respiratory panel was positive for parainfluenza virus. The parainfluenza virus is likely etiology of his respiratory issues, however, given his continued aspir ation the noncompliant patient will continue to receive antibiotics for 5 more days with Augmentin empirically for potential aspiration pneumonia. Did discuss CODE STATUS with the patient and since he wishes to have a liberalize diet despite obviously aspirating I strongly recommend DNR Comfort Care arrest. Patient agreed. I also did discuss palliative care to help with symptom control. Patient does have a chronic nausea to which we have started him on Protonix as well as continue with his Zofran at home as well as Phenergan. [] Patient Problems: Active and Suspected Problems HCAP (healthcare-associated pneumonia) (Acute) Acute respiratory failure with hypoxia (Acute) - Physical Exam General: Alert, Cooperative, No apparent distress HEENT: Atraumatic, Normocephalic Oral: Moist Mucosa, No Gingival or Mucosal Lesions/ Ulcerations Neck: No Nodes, Thyroid Normal Size and Texture Lungs: Clear to auscultation, Normal air movement, No rhonchi, No wheeze Cardiovascular: Regular rate, Regular Rhythm, Normal S1, Normal S2, No murmurs Abdomen: Bowel Sounds Present, Soft, Non Tender, Non-Distended Extremities: No edema, No Calf Tenderness Musculoskeletal: Cachexia, Muscle Wasting Vital Signs Temp Pulse Resp BP Pulse Ox 36.7 C 88 18 117/78 93 03/25/18 09:00 03/25/18 09:00 03/25/18 09:00 03/25/18 09:00 03/25/18 09:00 Oxygen Flow Rate (L/min) 2 Oxygen Delivery Method Room Air Weight: 60.192 kg Body Mass Index (BMI) 17.5 Finger Stick Blood Glucose 109 Intake and Output for Last 24 Hours 03/23/18 03/24/18 03/25/18 23:59 23:59 23:59 Intake Total 1416 / 1416 3089 / 3089 2293 / 2293 Output Total 725 / 725 4215 / 4215 1625 / 1625 Balance 691 / 691 -1126 / -1126 668 / 668 Microbiology Past 72 Hours 03/22/18 16:25 Blood Culture - Preliminary Blood Culture (Wb) - Left Forearm No growth in 48 hours. 03/22/18 14:15 Blood Culture - Preliminary Blood Culture (Wb) - Anticubital Left No growth in 48 hours. 03/23/18 19:20 Gram Stain - Final Sputum, Expectorated/Coughed Respiratory Culture - Preliminary Appears to be normal respiratory german. Further studies to follow. 03/23/18 05:00 Respiratory Panel (PCR) - Final Mucosa - Nasopharyngeal Parainfluenza 2 03/23/18 04:05 Streptococcus pneumoniae Antigen (M - Final Urine, Random 03/23/18 04:05 Legionella Antigen - Final Urine, Random Laboratory Tests Past 24 Hrs 03/25/18 05:20 Sodium 142 Potassium 3.3 L Chloride 104 Carbon Dioxide 30.0 Anion Gap 8 BUN 8 Creatinine 0.76 Estim Creat Clear Calc 61.86 Est GFR (MDRD) Af Amer 131 Est GFR (MDRD) Non-Af 109 BUN/Creatinine Ratio 10.5 Glucose 96 Calcium 7.9 L Magnesium 1.7 Discharge Diet: No Restrictions, - - eat sitting up during and 30 minutes after eating. Discharge Activity: Return to Normal Activity Call your doctor if you observe: Fever of 101 or Higher, Shortness of breath Home Medications: Medications to take at Discharge Albuterol Inhaler [Ventolin Hfa] 1 puff INHALATION PRN PRN 04/17/14 Simvastatin [Zocor] 20 mg PO QHS 04/17/14 traZODone [Desyrel] 50 mg PO DAILY 04/17/14 Aspirin [Aspirin, Baby] 81 mg PO DAILY@0800 08/08/17 Escitalopram Oxalate [Lexapro] 20 mg PO DAILY 08/08/17 Fludrocortisone Acetate [Florinef] 0.1 mg PO DAILY 03/02/18 Garlic 1,000 mg PO DAILY 03/02/18 Multivit-Min/FA/Herbal No.245 [Alive Women's Gummy Vitamins] 1 each PO DAILY 03/02/18 Umeclidinium Brm/Vilanterol Tr [Anoro Ellipta 62.5-25 Mcg INH] 1 inh INHALATION DAILY 03/02/18 Ensure Enlive 120 ml PO 4X/DAY #100 liquid 03/05/18 Midodrine HCl 10 mg PO TID 03/22/18 Gabapentin [Neurontin] 100 mg PO Q8 03/23/18 Amoxicillin/Potassium Clav [Augmentin 875-125 Tablet] 1 each PO BID #10 tablet 03/25/18 Following Prescrptions Were Given to Patient: Amoxicillin/Potassium Clav [Augmentin 875-125 Tablet] 1 each PO BID #10 tablet Other Amb Orders: Basic Metabolic Profile (BMP) Time Frame: 1 Week, Location: Laboratory Magnesium Time Frame: 1 Week, Location: Laboratory Primary Care Physician: Sean James PA [Primary Care Provider] - Within 2 Weeks Disposition: Home Minutes spent on discharge:: 35 Patient Condition:: Fair Medical Necessity - Tobacco Use Smoking Status: Former smoker Tobacco Use: Non-smoker Meaningful Use Info Meaningful Use Diagnoses (Choose all that apply): None applicable Code Visit Inpatient E&M: 72628 Disch Hosp
[2018-03-25 10:28] VITALS: O2SAT 86; O2SAT 89; O2SAT 91
[2018-03-25 10:48] VITALS: PULSE 77; RESP 16
--- NOTE | 2018-03-26 13:38 | CASEMGMT ---
IVY TIJERINA discharge phone call. Discharge Date: 03/25/18 DC disposition: Home LACE 13/Str[facility] 4 DC call: intro role of CM to patient's via phone. states pt still does not feel well due to his stomach hurting. Pt has not been eating well. states no difficulty with shortness of breath. Pt had home oxygen ordered through [employer] for home. contacted [facility] nurse who should be seeing patient tonight or tomorrow. IVY TIJERINA offered to make contact, but states she can call. F/U appointment has not been made. has # for PCP but states she does not feel patient can tolerate leaving home yet. She will make f/u appointment. -IVY TIJERINA did encourage call to [facility] to be sure RN sees pt soon and if difficulties arise, to call and get direction from PCP. states she has no questions re: prescriptions or DC instructions. Yuan CORRALES RN ACM
== END 2018-03-25 13:19 | disposition home or self-care (01) | DRG 177 ==
LOC: ED 16:49 → MS3 19:49
PROVIDERS: Admitting Provider Family Medicine; Emergency Provider Emergency Medicine; Family Provider Physician Assistant; PCP Physician Assistant; Referring Provider Family Medicine
DX: J69.0 Pneumonitis due to inhalation of food and vomit (principal); E43 Unspecified severe protein-calorie malnutrition; J96.01 Acute respiratory failure with hypoxia; Z68.1 Body mass index [BMI] 19.9 or less, adult; Z94.81 Bone marrow transplant status; J15.6 Pneumonia due to other Gram-negative bacteria; F10.10 Alcohol abuse, uncomplicated; B34.8 Other viral infections of unspecified site; R13.10 Dysphagia, unspecified; D46.9 Myelodysplastic syndrome, unspecified; E87.6 Hypokalemia; E78.5 Hyperlipidemia, unspecified; Z66 Do not resuscitate; Z87.891 Personal history of nicotine dependence
CPT/HCPCS: 36415; 71045; 71275; 80048; 80053; 83605; 83735; 84100; 84134; 84443; 85025; 85610; 85730; 87040; 87070; 87205; 87449; 87633; 92526; 93005; 94640; 94667; 94668; 97110; 97162; 97165; 97530; 97802; 99283; J7030; J7040; Q9967; A4216; J2405; J3490

== ENCOUNTER 2018-03-27 13:25 | Emergency (ER) | payer MEDICARE, OTHER, SELFPAY ==
[2018-03-27] VITALS (7 sets, daily range): BP systolic 131–157; BP diastolic 83–103; PULSE 84–117; RESP 22–39; TEMP 36.8; O2SAT 91–94; BMI 17.5
--- NOTE | 2018-03-27 13:45 | ED.DCSUM_ITS ---
- ER Visit Summary Date of Service: 03/27/18 Chief Complaint: Shortness of breath, requesting hospice care History of Present Illness: The patient is a 67 M who was recently discharged from the hospital 2 days ago. He had healthcare associated pneumonia. At that time he was advised that he was aspirating and that eating or drinking may affect his respiratory status. There was documentation that they discussed DNR CCA. He returns the emergency department today after the visiting nurse noted his respiratory rate was not improving. The patient is wanting to go to a hospice facility. He is on chronic oxygen at home secondary to COPD. According to family at the home health nurse noted that he was not moving much air today. He has not eaten or drinking anything over the past 2 days. He has not taken his pills as well. The patient is requesting that he does not want to be admitted to the hospital but would rather do hospice care. Physical Examination: Vital signs reviewed. Patient is tachypneic and tachycardic. He is cachectic HEENT exam unremarkable. Heart is tachycardic and regular rhythm without murmurs. Lungs have diffuse rhonchi and wheezing bilaterally. He is using accessory muscles. Abdomen is soft and nontender. Extremities reveal no edema. The patient is alert and oriented x3 he appears to have diffuse overall weakness. Test Results: Hemoglobin 11.6. Platelets 451. BUN 36, creatinine 1.4. Troponin normal. Chest x-ray reveals aspiration of oral contrast. There are some chronic changes. Emergency Department Course and Treatment: The was given albuterol and normal saline. He is adamant that he wants to go to a hospice facility. He does not want to be admitted to the hospital. I informed them that hospice care at likely means a DNR comfort care only with only comfort measures. He understands this and does not want any further interventions. I discussed this with our social work who reached out to [facility]. They came in and evaluated the patient. They feel that he is a suitable candidate for hospice admission at their facility. I signed a DNR comfort care form on behalf of the patient. They acknowledged that they understood what this meant. The [facility] hospice nurse spoke with the biomedical field service engineer, Dr. Rollins and the patient will be transferred to the facility this evening. Treatment Plan: [] Disposition: Transfer to hospice Impression: Chronic respiratory failure, healthcare associated pneumonia This note was generated with Dragon dictation software. It may contain incorrect words, spelling, and punctuation that were not noted in review of the chart prior to signing ED Disposition - Plan for ED Patient: Chief Complaint: Cough Referrals: Sean James PA [Primary Care Provider] -
--- NOTE | 2018-03-27 13:45 | RAD_ITS ---
STUDY: X-RAY CHEST REASON FOR EXAM: Male, 67 years old. Cough. Failure to thrive. TECHNIQUE: Single AP portable view of the chest. COMPARISON: Comparison is made with prior study dated March 14, 2018. FINDINGS: EKG electrodes are seen. Hyperinflation. Stable blunting of the right costophrenic angle. Stable appearance of the tiny radiopacities in the right lower lobe most likely secondary to prior aspiration of barium. There is no demonstrated pleural abnormality. Normal size heart. Normal mediastinum and musa. Normal visualized pulmonary arteries. There is atherosclerotic tortuosity of the aortic arch and descending thoracic aorta. There are diffuse degenerative changes of the visualized thoracic spine. Normal visualized ribs, clavicles, and shoulders. There is no demonstrated abnormality of the visualized soft tissue structures of the upper abdomen. RAD/Chest 1 View (Portable) IMPRESSION: Hyperinflation. Stable blunting of the right costophrenic angle. Stable findings of multiple tiny radiopacities in the right lower lobe in keeping with prior aspiration of oral contrast. Electronically Signed: Thom Smyth MD at 14:26 EDT Tel [phone], Service support ,
[2018-03-27] MEDS: Albuterol 2.5 MG/3 ML VIAL.NEB. INHALATION (13:54)
[2018-03-27] MEDS: 0.9% Normal Saline 1,000 ML 999 ML IV (14:04)
[2018-03-27 14:12] LABS: Absolute Lymphocyte Count 1.27 X10^3/ul (0.83-4.51); Absolute Neutrophil Count 6.4 X10^3/uL (2.0-7.7); Basophil# 0.04 X10^3/uL; Basophil% 0.5 % (0-1); Eosinophil# 0.01 X10^3/uL; Eosinophils% 0.1 % (0-5); Hematocrit 36.7 % (40-54); Hemoglobin 11.6 g/dl (13.0-16.5); Lymphocyte # 1.27 X10^3/ul (4.0); Mean Corp Hgb Conc 31.6 g/gl (32-36); Mean Corpuscular Hgb 29.6 pg (27.0-32.0); Mean Corpuscular Volume 93.6 fL (80-94); Mean Platelet Vol. 8.5 fl (6.2-12.0); Monocyte# 0.69 X10^3/uL; Monocyte% 8.2 % (0-10); Neutrophil # 6.41 X10^3/uL (2.7-7.7); Neutrophil % 75.7 % (47-70); Platelet Count 451 K/mm3 (150-450); RBC Distribution Width CV 12.7 % (11.6-14.6); RBC Distribution Width SD 42.2 fl (35.1-43.9); Red Blood Count 3.92 M/mm3 (4.6-6.2); White Blood Count 8.5 K/mm3 (4.4-11.0)
[2018-03-27 14:14] LABS: POSITIVE COUNT NO; POSITIVE DIFFERENTIAL NO; POSITIVE MORPHOLOGY NO
--- NOTE | 2018-03-27 14:22 | CM.ED ---
Social Work Note Referral from Dr. Cheema for hospice referral. Per physician the pt is requesting hospice services and does not want to be admitted for further care. Requesting hospice services. Faxed referral to [facility] and spoke with IVY Yu. Per Aimee they just met with the pt and he was enrolled in their palliative care services. Inform that at this time the pt is requesting to be placed on hospice services. Aimee states that she will contact the pt's and be out to see the pt this date. Joan Smith, [employer], [employer]
[2018-03-27 14:28] LABS: Anion Gap 17 (5-15); BUN 33 mg/dL (7-18); BUN/Creat Ratio 23.6 RATIO (10-20); Calcium,Total 9.7 mg/dL (8.5-10.1); Chloride 98 mmol/L (98-107); EST Glomerular Filtration Rate 54 mL/min (>60); Est Glom Filt Rate - Afr Amer 65 mL/min (>60); Estimated Creatinine Clearance 44.19 ml/min; Glucose 76 mg/dL (74-106); Potassium 3.9 mmol/L (3.5-5.1); Sodium Level 137 mmol/L (136-145)
--- NOTE | 2018-03-27 15:42 | ED.RN ---
HOSPICE MAKING ARRANGEMENTS FOR TRANSPORT.
--- NOTE | 2018-03-27 15:45 | ED.RN ---
HOSPICE STATED THAT [facility] WILL BE HERE AT 1730.
--- NOTE | 2018-03-27 16:09 | ED.RN ---
WENT HOME TO GET SOME CLOTHES STATED SHE WILL MEET THE PT AT HOSPICE. AWARE THAT TRANSPORT WILL ARRIVE TO ED APPROX. 1730.
== END 2018-03-27 17:48 | disposition intermediate care facility (04) ==
PROVIDERS: Emergency Provider Emergency Medicine; Family Provider Physician Assistant; PCP Physician Assistant
DX: J18.9 Pneumonia, unspecified organism (principal); J96.10 Chronic respiratory failure, unspecified whether with hypoxia or hypercapnia; J44.9 Chronic obstructive pulmonary disease, unspecified; Z99.81 Dependence on supplemental oxygen; Z66 Do not resuscitate; Z79.51 Long term (current) use of inhaled steroids; Z79.82 Long term (current) use of aspirin; Z79.899 Other long term (current) drug therapy; Y95 Nosocomial condition
CPT/HCPCS: 71045; 80048; 84484; 85025; 94640; 96360; 96361; 99285; J7030

== ENCOUNTER → 2018-06-18 08:38 | Outpatient (CLI) | payer MEDICARE, OTHER, SELFPAY ==
[2018-03-27 13:28] VITALS: BMI 17.5
[2018-06-18 09:18] LABS: Color, Urine Yellow (Yellow); Glucose, Dipstick Normal (Normal); Ketone-Dipstick Negative (Negative); Leukocyte Esterase-Dipstick Negative /ul (Negative); Nitrite-Dipstick Negative (Negative); Occult Blood-Urine Negative /ul (Negative); Protein-Dipstick Negative (Negative); Specific Gravity, Urine 1.015 (1.002-1.030); Urine Bilirubin Dipstick Negative (Negative); Urine Clarity Clear (Clear); Urine Urobilinogen Normal (Normal)
== END ==
PROVIDERS: Family Provider Family Medicine; PCP Family Medicine; Referring Provider Family Medicine; Visit Provider Family Medicine
DX: R35.0 Frequency of micturition (principal); R41.0 Disorientation, unspecified; J69.0 Pneumonitis due to inhalation of food and vomit; J96.01 Acute respiratory failure with hypoxia
CPT/HCPCS: 81002; 87086

== ENCOUNTER → 2018-10-12 | Outpatient (CLI) | payer MEDICARE, OTHER, SELFPAY ==
--- NOTE | 2018-10-12 12:50 | SP.MBSS_ITS ---
PRIMARY / SECONDARY DIAGNOSIS: dysphagia (R13.10) REFERRING PHYSICIAN: Dr. Marck Lee MD CURRENT DIET: regular textures, thin liquids DENTITION: WFL MENTAL STATUS: WNL RESPIRATORY STATUS: O2 via room air REASON FOR REFERRAL: Patient is a 67 year old male referred for a repeat modified barium swallow (MBS) study to objectively assess the Patients oropharyngeal swallow function under fluoroscopy secondary to persistent severe dysphagia associated with myelodysplasia status post full body radiation further complicated by chronic obstructive pulmonary disease. MEDICAL HISTORY: Myelodysplasia status post full body radiation (2002), chronic obstructive pulmonary disease, alcohol abuse, anxiety and depression, hyperlipidemia, hypertension PREVIOUS MODIFIED BARIUM SWALLOW STUDY: 11/28/2017 MBS revealed pharyngeal dysphagia (DSRS:4, SPS:5) with grade III SILENT aspiration of thin liquids 10/03/2017 MBS revealed moderate pharyngeal dysphagia (DSRS:4, SPS:5) with grade III overt aspiration of thin liquids. Patient reports prior workup via FEES, possibly via MBS during [facility] admission, reports recent FEES revealed what appears to be pharyngeal dysmotility w/ post prandial penetration and aspiration based on description. ASSESSMENT PARAMETERS: The Patient participated in a Modified Barium Swallow (MBS) study on 10/12/2018. Dr. Smyth was the radiologist present for this evaluation. This study was recorded in the lateral view and images were sent to PACs for storage. Scoring was completed through each trial using the 8-point Penetration-Aspiration Scale (PAS) and Videofluoroscopic Scale Score (VSS), and summarized via the Modified Barium Swallow Impairment Profile (MBSImP) and the Bolus Residue Scale (BRS), with severity scoring through the Dysphagia Severity Rating Scale (DSRS) and Swallowing Performance Scale (SPS), and recommended diet textures through the International Dysphagia Diet Standardisation Initiative (IDDSI) RESULTS OF THE EVALUATION: The Patient presents with moderate to severe pharyngeal dysphagia (DSRS: 5; SPS: 6) with grade III SILENT aspiration of thin and honey thickened liquids secondary to the diagnosis of myelodysplasia status post full body radiation complicated by chronic obstructive pulmonary disease, with results similar in nature to the previous study OBJECTIVE ASSESSMENT OF SWALLOW FUNCTION (QUANTITATIVE ? PER TRIAL): PENETRATION / ASPIRATION SCALE (GLEZ): 1 = does not enter airway 2 = enters airway/above vocal folds/ejected 3 = enters airway/above vocal folds/not ejected 4 = enters airway/contacts vocal folds/ejected 5 = enters airway/contacts vocal folds/not ejected 6 = enters airway/below vocal folds/ejected 7 = enters airway/below vocal folds/not ejected despite effort 8 = enters airway/below vocal folds/no effort VIDEOFLOROSCOPIC SCALE SCORE (GLEZ): Grade I = aspiration of material that has penetrated into the laryngeal vestibule, intact cough reflex Grade II = aspiration < 10 % of the bolus, intact cough reflex Grade III = aspiration of < 10 % of the bolus, reduced cough reflex or aspiration of > 10 % of the bolus, intact cough reflex Grade IV = aspiration of > 10 % of the bolus, reduced cough reflex PENETRATION / ASPIRATION SCALE (SCORE) WITH VIDEOFLOROSCOPIC SCALE SCORE: Thin liquid - 5 mL tsp.: 1 Thin liquids via cup (single sip): 5 Thin liquids via cup (single sip): 8 ? Grade III Thin liquids via cup (single sip): 5 Thin liquids via cup (sequential swallows): 8 ? Grade III Shallowater thickened liquids via cup (single sip): 3 Shallowater thickened liquids via cup (single sip): 5 Shallowater thickened liquids via cup (single sip): 5 Honey thickened liquids via cup (single sip): 5 Honey thickened liquids via cup (single sip): 5 Honey thickened liquids via cup (single sip): 5 Honey thickened liquids via cup (sequential swallows): 8 ? Grade III Pudding via spoon: 1 Regular textured cookie: 1 Thin liquids via cup (single sip): 1 ? Grade III OBJECTIVE ASSESSMENT OF SWALLOW FUNCTION (QUANTITATIVE ? AGGREGATE): MODIFIED BARIUM SWALLOW IMPAIRMENT PROFILE (MBSImP) LABIAL SEAL: 0 (of 4) no labial escape TONGUE CONTROL: 0 (of 3) cohesive bolus BOLUS PREPARATION / MASTICATION: 0 (of 3) timely and efficient BOLUS TRANSPORT / LINGUAL MOTION: 0 (of 4) brisk tongue motion ORAL RESIDUE: 2 (of 4) residue collection on oral structures INITIATION OF PHARYNGEAL SWALLOW: 1 (of 4) valleculae SOFT PALATE ELEVATION: 0 (of 4) no bolus between soft palate & pharyngeal wall LARYNGEAL ELEVATION: 1 (of 3) partial superior movement / approximation ANTERIOR HYOID EXCURSION: 2 (of 2) no movement EPIGLOTTIC MOVEMENT: 1 (of 2) partial inversion LARYNGEAL VESTIBULE CLOSURE: 1 (of 2) incomplete closure PHARYNGEAL STRIPPING WAVE: 2 (of 2) absent PE SEGMENT OPENIN (of 3) minimal distension / duration; marked obstruction TONGUE BASE RETRACTION: 3 (of 4) wide column of contrast PHARYNGEAL RESIDUE: 3 (of 4) majority of contrast remaining ESOPHAGEAL BOLUS CLEARANCE: 1 (of 4) esophageal retention ORAL TOTAL SUM: 3 / 22 (prior 3) PHARYNGEAL TOTAL SUM: 15 / 29 (prior 13) ESOPHAGEAL TOTAL SUM: 1 / 4 OVERALL IMPRESSION (OI) SCORE: 19 / 55 BOLUS RESIDUE SCALE (BRS): 6 (of 6) residue in valleculae / along pharyngeal wall / pyriforms DYSPHAGIA SEVERITY RATING SCALE (DSRS): 5 (moderate-severe) SWALLOWING PERFORMANCE SCALE (SPS): 6 (moderate to severe) OBJECTIVE ASSESSMENT OF SWALLOW FUNCTION (QUALITATIVE): ORAL PREPARATORY PHASE: sufficient mastication rate and quality with sufficient anterior oral containment; preserved management of breathing / bolus formation without disrupted E ? S ? E pattern ORAL TRANSITIONAL PHASE: no presence of transitional incompetence; overall sufficient oral clearance; sufficient oral containment across textures; PHARYNGEAL PHASE: impaired hyolaryngeal excursion and duration with insufficient laryngeal vestibule pressure generated to expel penetrated material across viscosities; profound pharyngeal dysmotility most prominently with more viscous / solid textures resulting in post prandial penetration and eventual aspiration of multiple liquid viscosities in addition to aspiration of larger semisolid collections during trials of thin liquids following solid texture ingestion; no significant pharyngeal dyssynchrony; no signs of velopharyngeal impairments. ESOPHAGEAL PHASE: esophageal phase marked by mild esophageal retention without retrograde movement within the upper 1/3rd of the esophagus. CONTRIBUTING / COMPLICATING FACTORS AND NOTABLE FINDINGS: inconsistent intensity generated during cued cough to expel penetrated material. RECOMMENDATIONS AND CONSIDERATIONS: Little to no change in functioning when compared to the prior assessment with the exception of SILENT aspiration identified during trials of honey thickened liquids. )Despite effort, the Patient has not responded to intervention targeting improvement in oropharyngeal functioning, with results wholly similar in nature to the previous MBS. Would consider the Patients current level of functioning to be reflective of his current baseline functioning, with limited potential for physiological improvements. The Patient has been rather upfront regarding his intentions to politely decline any recommendations for nectar thickened liquids, expressing clear understanding of potential medical complications and increased likelihood of mortality, and sound decision making regarding choice to proceed with a quality vs. quantity approach to care regarding usage of thickening agents or dietary modifications. Would consider this Patient to be at higher risk for both aspiration and aspiration related medical complications (extent of dysmotility, presence of silent aspiration), with much higher risk of aspiration with any additional etiologies that deplete the immune system. DIET TEXTURE RECOMMENDATIONS: Will recommend a pureed textured (IDDSI: 4), pudding thickened liquid (IDDSI: 4) diet RECOMMENDED COMPENSATORY STRATEGIES: Supervision, reduced bolus volume / rate of ingestion, seated upright at 90 degrees during PO intake, remain upright for 30-60 minutes post meal (GERD precaution), medications crushed in purees. IMAGE COUNT: [id number] Reza Maldonado M.A., CCC-FREELANCE RECRUITER MBSImP Certified, LSVT Certified [facility] Speech-Language Pathology Department [email or web address]
--- NOTE | 2018-10-12 12:59 | RAD_ITS ---
STUDY: SWALLOWING STUDY REASON FOR EXAM: Male, 67 years old. Dysphagia. TECHNIQUE: The examination was performed with Speech Pathology in attendance. Under fluoroscopic observation, the patient ingested thin barium, thick barium, barium pudding, and barium coated cracker. FLUOROSCOPY TIME: 2:19 minutes/seconds. 3062 spot views were obtained. RADIOLOGIST INVOLVEMENT: Radiologist was present and providing direct supervision. COMPARISON: None. FINDINGS: The following was observed during swallowing of the various mixtures of barium: Thin Barium: Silent aspiration with ingestion of thin liquids. Thick Barium: Silent aspiration with ingestion of nectar thickened and honey thickened liquids. Barium Pudding: Solid aspiration with ingestion of pudding. Barium Coated Cracker: There was no evidence of aspiration or laryngeal penetration. RAD/Swallowing Function w/Video IMPRESSION: Solid aspiration with ingestion of thin liquids, nectar thickened and honey thickened liquids as well as pudding. The swallow study findings were discussed with the patient by the speech pathologist at the conclusion of the examination. Please see speech pathology report for more information and recommendations. Electronically Signed: Thom Smyth, at 13:39 EDT , Service support ,
== END | disposition home or self-care (01) ==
LOC: RAD 12:56
PROVIDERS: Family Provider Family Medicine; PCP Family Medicine; Referring Provider Family Medicine; Visit Provider Family Medicine
DX: R13.12 Dysphagia, oropharyngeal phase (principal)
CPT/HCPCS: 74230; 92611